=== PATIENT | female | born 1960 | race Caucasian/White ===

== ENCOUNTER 2017-01-14 12:37 | Inpatient (IN) | payer OTHER ==
[2017-01-14 13:04] VITALS: BMI 33.0
--- NOTE | 2017-01-14 15:50 | HP ---
CIWA Score - CIWA Score Nausea/Vomitin Muscle Tremors: 4-Moderate,w/Arms Extend Anxiety: 4-Mod. Anxious/Guarded Agitation: 4-Moderately Restless Paroxysmal Sweats: 3 Orientation: 1-Uncertain about Date Tacttile Disturbances: 0-None Auditory Disturbances: 0-None Visual Disturbances: 0-None Headache: 0-None Present CIWA-Ar Total Score: 19 Admission ROS BHS - HPI Chief Complaint: withdrawal sx. Allergies/Adverse Reactions: Allergies Allergy/AdvReac Type Severity Reaction Status Date / Time No Known Allergies Allergy Verified 01/14/17 14:45 History of Present Illness: 57 y/o woman with a long hx. of alcoholism is admitted for detox.Pt. has been in previous detox,denies significant sobriety. Exam Limitations: No Limitations - Ebola screening Have you traveled outside of the country in the last 21 days: No Have you had contact with anyone from an Ebola affected area: No Have you been sick,other than usual withdrawal symptoms: No Do you have a fever: No - Review of Systems Constitutional: Diaphoresis EENT: reports: No Symptoms Reported Respiratory: reports: No Symptoms reported Cardiac: reports: No Symptoms Reported GI: reports: Diarrhea, Nausea, Abdominal cramping : reports: No Symptoms Reported Musculoskeletal: reports: Back Pain Integumentary: reports: Sweating Neuro: reports: Tremors Endocrine: reports: No Symptoms Reported Hematology: reports: No Symptoms Reported Psychiatric: reports: No Sypmtoms Reported Other Systems: Reviewed and Negative Patient History - Patient Medical History Hx Anemia: No Hx Asthma: No Hx Chronic Obstructive Pulmonary Disease (COPD): No Hx Cancer: No Hx Cardiac Disorders: No Hx Congestive Heart Failure: No Hx Hypertension: No Hx Hypercholesterolemia: Yes (lipitor ) Hx Pacemaker: No HX Cerebrovascular Accident: No Hx Seizures: No Hx Dementia: No Hx Diabetes: No Hx Gastrointestinal Disorders: Yes (dyspepsia) Hx Liver Disease: No Hx Genitourinary Disorders: No Hx Sexually Transmitted Disorders: No Hx Renal Disease (ESRD): No Hx Thyroid Disease: No Hx Human Immunodeficiency Virus (HIV): No Hx Hepatitis C: Yes (treatment not needed at this time) Hx Depression: Yes Hx Suicide Attempt: Yes Hx Bipolar Disorder: Yes Hx Schizophrenia: No - Patient Surgical History Past Surgical History: No - PPD History Previous Implant?: Yes Documented Results: Positive w/o proof Implanted On Prior [facility] Admission?: No PPD to be Administered?: No - Reproductive History Patient is a Female of Child Bearing Age (11 -55 yrs old): No Patient : No - Smoking Cessation Smoking history: Current every day smoker Have you smoked in the past 12 months: Yes Aproximately how many cigarettes per day: 5 Hx Chewing Tobacco Use: No Initiated information on smoking cessation: Yes 'Breaking Loose' booklet given: 01/14/17 - Substance & Tx. History Hx Alcohol Use: Yes Hx Substance Use: Yes Substance Use Type: Alcohol, Cocaine, Marijuana Hx Substance Use Treatment: Yes (Detox) - Substances Abused Alcohol Route: Oral Frequency: Daily Amount used: vodka(1pint) Beer(2 cans of 16 oz cans) Age of first use: 15 Date of Last Use: 01/13/17 Cocaine Frequency: Daily Amount used: $120 Age of first use: 41 Date of Last Use: 01/14/17 Marijuana/Hashish Route: Smoking Frequency: Daily Amount used: $30 Age of first use: 23 Date of Last Use: 01/12/17 Family Disease History - Family Disease History Family History: Denies Admission Physical Exam [facility] - Vital Signs Vital Signs: Vital Signs - 24 hr 01/14/17 13:01 Temperature 99.1 F Pulse Rate 97 H Respiratory 20 Rate Blood Pressure 164/89 - Physical General Appearance: Yes: Tremorous, Irritable, Sweating, Anxious HEENTM: Yes: Within Normal Limits Respiratory: Yes: Chest Non-Tender, Lungs Clear, Normal Breath Sounds Breast: Yes: Breast Exam Deferred Cardiology: Yes: Regular Rhythm, Regular Rate, S1, S2 Abdominal: Yes: Normal Bowel Sounds, Non Tender, Soft Genitourinary: Yes: Within Normal Limits Back: Yes: Within Normal Limits Musculoskeletal: Yes: Within Normal Limits Extremities: Yes: Tremors Neurological: Yes: Fully Oriented, Alert Integumentary: Yes: Diaphoresis Lymphatic: Yes: Within Normal Limits - Diagnostic (1) Alcohol dependence with uncomplicated withdrawal Current Visit: Yes Status: Acute (2) Cannabis dependence, uncomplicated Current Visit: Yes Status: Acute (3) Cocaine dependence, uncomplicated Current Visit: Yes Status: Acute Cleared for Admission [facility] - Detox or Rehab [facility] Level of Care: Medically Managed Detox Regimen/Protocol: Librium [facility] Breath Alcohol Content Breath Alcohol Content: 0 Urine Pregancy Test - Result Urine Test Results: Negative- NO Line Present Urine Drug Screen - Results Drug Screen Negative: No Urine Drug Screen Results: THC-Marijuana, SHIRAZ-Cocaine
[2017-01-14] MEDS ORDERED: MENTHOL/PHENOL 1 EACH UD MM PRN (15:56)
[2017-01-14] MEDS ORDERED: LOPERAMIDE HCL 2 MG CAPSULE PO PRN (15:56)
[2017-01-14] MEDS ORDERED: P-EPHED 60MG/TRIPROLIDI 2.5MG TABLET PO PRN (15:56)
[2017-01-14] MEDS ORDERED: MAGNESIUM HYDROX 2400MG/30ML ORAL SUSPENSION 30 ML CUP PO PRN (15:56)
[2017-01-14] MEDS ORDERED: IBUPROFEN 400 MG TABLET (FP) PO PRN (15:56)
[2017-01-14] MEDS ORDERED: chlordiazePOXIDE HCL 25 MG CAPSULE PO PRN (15:56)
[2017-01-14] MEDS ORDERED: guaiFENesin/D-METHORPHAN HB 10 ML UNIT-DOSE CUPS PO PRN (15:56)
[2017-01-14] MEDS ORDERED: MAG HYDROX/AL HYDROX/SIMETH 30 ML UNIT-DOSE CUP PO PRN (15:56)
[2017-01-14] MEDS ORDERED: ACETAMINOPHEN 325 MG TABLET (FP) PO PRN (15:56)
[2017-01-14] MEDS ORDERED: chlordiazePOXIDE HCL 25 MG CAPSULE PO ONE (15:56)
[2017-01-14] MEDS ORDERED: MAGNESIUM CITRATE 300 ML BOTTLE PO PRN (15:56)
[2017-01-14] MEDS ORDERED: NICOTINE POLACRILEX 2 MG GUM BC PRN (15:56)
[2017-01-14] MEDS ORDERED: diphenhydrAMINE HCL 50 MG CAPSULE PO PRN (15:56)
[2017-01-14] MEDS ORDERED: hydrOXYzine PAMOATE 50 MG CAPSULE (FP) PO PRN (15:56)
[2017-01-14] MEDS: NICOTINE 14 MG/24 HOURS TOPICAL PATCH TD SCH (17:12)
[2017-01-14] MEDS: chlordiazePOXIDE HCL 25 MG CAPSULE PO SCH ×2 (17:12→22:29)
[2017-01-14] MEDS: PANTOPRAZOLE 40 MG TABLET (FP) PO SCH (17:13)
[2017-01-14] MEDS ORDERED: ATORVASTATIN CA 20 MG TABLET (FP) ONE (21:33)
[2017-01-14] MEDS: THIAMINE HCL 100 MG TABLET (FP) PO SCH (22:28)
[2017-01-14] MEDS: ATORVASTATIN CA 40 MG TABLET (FP) PO SCH (22:30)
[2017-01-15] MEDS: chlordiazePOXIDE HCL 25 MG CAPSULE PO SCH ×4 (06:00→22:36)
[2017-01-15] MEDS: NICOTINE 14 MG/24 HOURS TOPICAL PATCH TD SCH (10:30)
[2017-01-15] MEDS: PANTOPRAZOLE 40 MG TABLET (FP) PO SCH (10:30)
[2017-01-15] MEDS: PRENATAL VITAMINS W/ FOLIC ACID TABLET (FP) PO SCH (10:30)
--- NOTE | 2017-01-15 11:03 | EKG ---
Test Reason : Blood Pressure : / mmHG Vent. Rate : 084 BPM Atrial Rate : 084 BPM P-R Int : 142 ms QRS Dur : 082 ms QT Int : 386 ms P-R-T Axes : 067 064 061 degrees QTc Int : 456 ms NORMAL SINUS RHYTHM POSSIBLE LEFT ATRIAL ENLARGEMENT BORDERLINE ECG NO PREVIOUS ECGS AVAILABLE Confirmed by STANLEY PRAKASH, PRUDENCIO ([id number]) on 01/15/2017 11:02:29 AM Referred By: Confirmed By:PRUDENCIO ANGEL MD
--- NOTE | 2017-01-15 11:23 | CONSULT ---
[facility] Psychiatric Consult - Data Date of interview: 01/15/17 Admission source: [facility] Identifying data: This is 57 years old female with psychiatric hospitalization history intoxicated with: Cannabis, Alcohol andCocaine Substance Abuse History: - Smoking Cessation. Smoking history: Current every day smoker. Have you smoked in the past 12 months: Yes. Aproximately how many cigarettes per day: 5. Hx Chewing Tobacco Use: No. Initiated information on smoking cessation: Yes. 'Breaking Loose' booklet given: 01/14/17. - Substance & Tx. History. Hx Alcohol Use: Yes. Hx Substance Use: Yes. Substance Use Type : Alcohol, Cocaine, Marijuana. Hx Substance Use Treatment: Yes (Detox). - Substances Abused. Alcohol. Route: Oral. Frequency: Daily. Amount used: vodka(1pint) Beer(2 cans of 16 oz cans). Age of first use: 15. Date of Last Use: 01/13/17. Cocaine. Frequency: Daily. Amount used: $120. Age of first use: 41. Date of Last Use: 01/14/17. Marijuana/Hashish. Route: Smoking. Frequency: Daily. Amount used: $30. Age of first use: 23. Date of Last Use: 01/12/17 Medical History: Denies Psychiatric History: Aidan reports history of MDD, with n ost recent psychiatric admission on 2013 at [facility] prior to admission: Abilify 10mg poqd. Celexa 40mg poqd. Trazodone 100mg po qhs. Physical/Sexual Abuse/Trauma History: Denies Additional Comment: Abilify 10mg poqd. Celexa 40mg poqd. Trazodone 100mg po qhs Mental Status Exam - Mental Status Exam Alert and Oriented to: Person Cognitive Function: Fair Patient Appearance: Unkempt Mood: Euthymic Affect: Normal Range Patient Behavior: Cooperative Speech Pattern: Appropriate Voice Loudness: Severely Soft/Quiet Thought Process: Circumstantial Thought Disorder: Being Controlled Hallucinations: Denies Suicidal Ideation: Denies Homicidal Ideation: Denies Insight/Judgement: Fair Sleep: Difficulty falling asleep Appetite: Fair Muscle strength/Tone: Mild Hypotonicity Gait/Station: Shuffling Additional Comments: Abilify 10mg poqd. Celexa 40mg poqd Psychiatric Findings - Problem List ([place] 1, 2,3) (1) Alcohol dependence with uncomplicated withdrawal Current Visit: Yes Status: Acute (2) Cannabis dependence, uncomplicated Current Visit: Yes Status: Acute (3) Cocaine dependence, uncomplicated Current Visit: Yes Status: Acute (4) MDD (major depressive disorder) Current Visit: Yes Status: Acute (5) Drug-induced mood disorder Current Visit: Yes Status: Acute - Initial Treatment Plan Initial Treatment Plan: Abilify 10mg poqd. Celexa 40mg poqd. Trazodone 100mg po qhs
[2017-01-15] MEDS: CITALOPRAM HYDROBROMIDE 20 MG TABLET (FP) PO SCH (12:51)
[2017-01-15] MEDS: ARIPiprazole 10 MG TABLET PO SCH (12:52)
[2017-01-15] MEDS: CYCLOBENZAPRINE HCL 10 MG TABLET (FP) PO PRN ×2 (12:55→22:37)
[2017-01-15 14:12] LABS: MCH 30.3 pg (25.7-33.7); MCHC 33.3 g/dl (32.0-36.0); MEAN PLT VOLUME 9.8 fl (7.5-11.1); PLATELET COUNT 146 K/MM3 (134-434); RDW 13.9 % (11.6-15.6); WHITE BLOOD COUNT 3.8 K/mm3 (4.0-10.0)
[2017-01-15 14:17] LABS: URINE APPEARANCE SLCLOUDY; URINE BILIRUBIN NEGATIVE (NEGATIVE); URINE BLOOD NEGATIVE (NEGATIVE); URINE COLOR YELLOW; URINE GLUCOSE (UA) NEGATIVE (NEGATIVE); URINE KETONE NEGATIVE (NEGATIVE); URINE NITRITE NEGATIVE (NEGATIVE); URINE PROTEIN NEGATIVE (NEGATIVE); URINE UROBILINOGEN NEGATIVE E.U./dl (0.2-1.0)
[2017-01-15 14:21] LABS: URINE LEUK ESTERASE TRACE (NEGATIVE)
[2017-01-15 14:28] LABS: ALBUMIN 3.2 g/dl (3.4-5.0); CALCIUM 8.5 mg/dL (8.5-10.1)
[2017-01-15 14:33] LABS: BILIRUBIN,TOTAL 0.5 mg/dL (0.2-1.0); COCKROFT - GAULT 55.25; CREATININE 1.4 mg/dL (0.55-1.02); TOT PROT 5.9 g/dl (6.4-8.2)
[2017-01-15 14:35] LABS: CALCIUM OXALATE CRYSTALS RARE /hpf (NONE SEEN); URINE HYALINE CAST 9 /lpf; URINE MUCUS MANY; URINE RBC 5 /hpf (0-3); URINE WBC 9 /hpf (3-5)
[2017-01-15 14:40] LABS: HIV 1 & 2 AB NEGATIVE; HIV 1 AGp24 NEGATIVE
--- NOTE | 2017-01-15 17:06 | PN ---
S CIWA - CIWA Score Nausea/Vomitin Muscle Tremors: 4-Moderate,w/Arms Extend Anxiety: 4-Mod. Anxious/Guarded Agitation: 2 Paroxysmal Sweats: 2 Orientation: 0-Oriented Tacttile Disturbances: 0-None Auditory Disturbances: 2-Mild Harshness/Frighten Visual Disturbances: 3-Moderate Sensitivity Headache: 0-None Present CIWA-Ar Total Score: 19 S Progress Note (SOAP) Subjective: Body Aches, Tremors, Diarrhea. Objective: PT. A & O X 3, OBSERVED AMBULATING ON UNIT. NO ACUTE DISTRESS. 01/15/17 17:03 Vital Signs Temperature 97.9 F 01/15/17 15:49 Pulse Rate 88 01/15/17 15:49 Respiratory Rate 20 01/15/17 15:49 Blood Pressure 144/74 01/15/17 15:49 O2 Sat by Pulse Oximetry (%) Laboratory Tests 01/15/17 01/15/17 01/15/17 07:12 07:12 07:12 WBC 3.8 L RBC 4.47 Hgb 13.5 Hct 40.7 MCV 91.0 MCHC 33.3 RDW 13.9 Plt Count 146 MPV 9.8 Sodium 142 Potassium 3.5 Chloride 107 Carbon Dioxide 21 Anion Gap 14 BUN 15 Creatinine 1.4 H Creat Clearance w eGFR 38.49 Random Glucose 169 H Calcium 8.5 Total Bilirubin 0.5 AST 24 ALT 22 Alkaline Phosphatase 48 Total Protein 5.9 L Albumin 3.2 L Urine Color Urine Appearance Urine pH Urine Protein Urine Glucose (UA) Urine Ketones Urine Blood Urine Nitrite Urine Bilirubin Urine Urobilinogen Ur Leukocyte Esterase Urine RBC Urine WBC Ur Epithelial Cells Calcium Oxalate Crystal Hyaline Casts Urine Mucus RPR Titer HIV 1&2 Antibody Screen Negative HIV P24 Antigen Negative 01/15/17 01/15/17 07:12 08:00 WBC RBC Hgb Hct MCV MCHC RDW Plt Count MPV Sodium Potassium Chloride Carbon Dioxide Anion Gap BUN Creatinine Creat Clearance w eGFR Random Glucose Calcium Total Bilirubin AST ALT Alkaline Phosphatase Total Protein Albumin Urine Color Yellow Urine Appearance Slcloudy Urine pH 5.0 Urine Protein Negative Urine Glucose (UA) Negative Urine Ketones Negative Urine Blood Negative Urine Nitrite Negative Urine Bilirubin Negative Urine Urobilinogen Negative Ur Leukocyte Esterase Trace H Urine RBC 5 Urine WBC 9 Ur Epithelial Cells Few Calcium Oxalate Crystal Rare Hyaline Casts 9 Urine Mucus Many RPR Titer Nonreactive HIV 1&2 Antibody Screen HIV P24 Antigen LABS NOTED. Assessment: 01/15/17 17:04 WITHDRAWAL SYMPTOMS. Plan: CONTINUE DETOX. D/C MAGNESIUM-CONTAINING MEDS. BGM ACBK TOMORROW FOR ELEVATED ADMISSION RANDOM GLUCOSE LEVEL. ADVISED PATIENT TO FOLLOW-UP WITH HOUSEKEEPING MANAGER AFTER DISCHARGE FROM DETOX FOR GENERAL MEDICAL ASSESSMENT AND FOR ABNORMAL ADMISSION RENAL LAB VALUES.
[2017-01-15] MEDS ORDERED: traZODone HCL 50 MG TABLET (FP) PO SCH (22:00)
[2017-01-15] MEDS: THIAMINE HCL 100 MG TABLET (FP) PO SCH (22:36)
[2017-01-15] MEDS: traZODone HCL 100 MG TABLET (FP) PO SCH (22:36)
[2017-01-15] MEDS: ATORVASTATIN CA 40 MG TABLET (FP) PO SCH (22:36)
[2017-01-16] MEDS: chlordiazePOXIDE HCL 25 MG CAPSULE PO SCH ×2 (06:01→10:21)
[2017-01-16] MEDS: CYCLOBENZAPRINE HCL 10 MG TABLET (FP) PO PRN ×3 (06:03→22:43)
[2017-01-16] MEDS: PRENATAL VITAMINS W/ FOLIC ACID TABLET (FP) PO SCH (10:20)
[2017-01-16] MEDS: CITALOPRAM HYDROBROMIDE 20 MG TABLET (FP) PO SCH (10:20)
[2017-01-16] MEDS: PANTOPRAZOLE 40 MG TABLET (FP) PO SCH (10:21)
[2017-01-16] MEDS: ARIPiprazole 10 MG TABLET PO SCH (10:21)
[2017-01-16] MEDS: NICOTINE 14 MG/24 HOURS TOPICAL PATCH TD SCH (10:21)
[2017-01-16] MEDS ORDERED: ONDANSETRON *ODT* 4 MG TABLET SL PRN (10:58)
--- NOTE | 2017-01-16 11:00 | PN ---
[facility] CIWA - CIWA Score Nausea/Vomitin Muscle Tremors: 4-Moderate,w/Arms Extend Anxiety: 3 Agitation: 4-Moderately Restless Paroxysmal Sweats: 3 Orientation: 0-Oriented Tacttile Disturbances: 0-None Auditory Disturbances: 0-None Visual Disturbances: 0-None Headache: 0-None Present CIWA-Ar Total Score: 16 S Progress Note (SOAP) Subjective: body aches nausea vomiting interrupted sleep sweats Objective: 01/16/17 10:59 Vital Signs Temperature 97.5 F L 01/16/17 09:54 Pulse Rate 94 H 01/16/17 09:54 Respiratory Rate 16 01/16/17 09:54 Blood Pressure 147/78 01/16/17 09:54 O2 Sat by Pulse Oximetry (%) Laboratory Tests 01/15/17 01/15/17 01/15/17 07:12 07:12 07:12 WBC 3.8 L RBC 4.47 Hgb 13.5 Hct 40.7 MCV 91.0 MCHC 33.3 RDW 13.9 Plt Count 146 MPV 9.8 Sodium 142 Potassium 3.5 Chloride 107 Carbon Dioxide 21 Anion Gap 14 BUN 15 Creatinine 1.4 H Creat Clearance w eGFR 38.49 POC Glucometer Random Glucose 169 H Calcium 8.5 Total Bilirubin 0.5 AST 24 ALT 22 Alkaline Phosphatase 48 Total Protein 5.9 L Albumin 3.2 L Urine Color Urine Appearance Urine pH Ur Specific [place] Urine Protein Urine Glucose (UA) Urine Ketones Urine Blood Urine Nitrite Urine Bilirubin Urine Urobilinogen Ur Leukocyte Esterase Urine RBC Urine WBC Ur Epithelial Cells Calcium Oxalate Crystal Hyaline Casts Urine Mucus RPR Titer HIV 1&2 Antibody Screen Negative HIV P24 Antigen Negative 01/15/17 01/15/17 01/16/17 07:12 08:00 06:18 WBC RBC Hgb Hct MCV MCHC RDW Plt Count MPV Sodium Potassium Chloride Carbon Dioxide Anion Gap BUN Creatinine Creat Clearance w eGFR POC Glucometer 123 Random Glucose Calcium Total Bilirubin AST ALT Alkaline Phosphatase Total Protein Albumin Urine Color Yellow Urine Appearance Slcloudy Urine pH 5.0 Ur Specific [place] 1.025 Urine Protein Negative Urine Glucose (UA) Negative Urine Ketones Negative Urine Blood Negative Urine Nitrite Negative Urine Bilirubin Negative Urine Urobilinogen Negative Ur Leukocyte Esterase Trace H Urine RBC 5 Urine WBC 9 Ur Epithelial Cells Few Calcium Oxalate Crystal Rare Hyaline Casts 9 Urine Mucus Many RPR Titer Nonreactive HIV 1&2 Antibody Screen HIV P24 Antigen awake/alert ambulating no acute distress Assessment: 01/16/17 11:00 withdrawal sx Plan: continue detox increase fluids magan PRANEETH prn
[2017-01-16] MEDS: LIDOCAINE 5% TOPICAL PATCH TP SCH (11:43)
[2017-01-16] MEDS: chlordiazePOXIDE 5 MG CAPSULE PO SCH ×2 (17:24→22:44)
[2017-01-16] MEDS: THIAMINE HCL 100 MG TABLET (FP) PO SCH (22:43)
[2017-01-16] MEDS: traZODone HCL 100 MG TABLET (FP) PO SCH (22:43)
[2017-01-16] MEDS: ATORVASTATIN CA 40 MG TABLET (FP) PO SCH (22:43)
[2017-01-16] MEDS: LIDOCAINE PATCH REMOVAL MC SCH (22:44)
[2017-01-17] MEDS: chlordiazePOXIDE 5 MG CAPSULE PO SCH ×2 (06:02→10:44)
--- NOTE | 2017-01-17 09:25 | PN ---
[facility] Progress Note (SOAP) Subjective: interrupted sleep, diarrhea , lbp , sciatica Objective: 01/17/17 09:22 Vital Signs Temperature 96.3 F L 01/17/17 06:00 Pulse Rate 80 01/17/17 06:00 Respiratory Rate 18 01/17/17 06:00 Blood Pressure 124/64 01/17/17 06:00 O2 Sat by Pulse Oximetry (%) Laboratory Tests 01/15/17 01/15/17 01/15/17 07:12 07:12 07:12 WBC 3.8 L RBC 4.47 Hgb 13.5 Hct 40.7 MCV 91.0 MCHC 33.3 RDW 13.9 Plt Count 146 MPV 9.8 Sodium 142 Potassium 3.5 Chloride 107 Carbon Dioxide 21 Anion Gap 14 BUN 15 Creatinine 1.4 H Creat Clearance w eGFR 38.49 POC Glucometer Random Glucose 169 H Calcium 8.5 Total Bilirubin 0.5 AST 24 ALT 22 Alkaline Phosphatase 48 Total Protein 5.9 L Albumin 3.2 L Urine Color Urine Appearance Urine pH Ur Specific [place] Urine Protein Urine Glucose (UA) Urine Ketones Urine Blood Urine Nitrite Urine Bilirubin Urine Urobilinogen Ur Leukocyte Esterase Urine RBC Urine WBC Ur Epithelial Cells Calcium Oxalate Crystal Hyaline Casts Urine Mucus RPR Titer HIV 1&2 Antibody Screen Negative HIV P24 Antigen Negative 01/15/17 01/15/17 01/16/17 07:12 08:00 06:18 WBC RBC Hgb Hct MCV MCHC RDW Plt Count MPV Sodium Potassium Chloride Carbon Dioxide Anion Gap BUN Creatinine Creat Clearance w eGFR POC Glucometer 123 Random Glucose Calcium Total Bilirubin AST ALT Alkaline Phosphatase Total Protein Albumin Urine Color Yellow Urine Appearance Slcloudy Urine pH 5.0 Ur Specific [place] 1.025 Urine Protein Negative Urine Glucose (UA) Negative Urine Ketones Negative Urine Blood Negative Urine Nitrite Negative Urine Bilirubin Negative Urine Urobilinogen Negative Ur Leukocyte Esterase Trace H Urine RBC 5 Urine WBC 9 Ur Epithelial Cells Few Calcium Oxalate Crystal Rare Hyaline Casts 9 Urine Mucus Many RPR Titer Nonreactive HIV 1&2 Antibody Screen HIV P24 Antigen 01/17/17 06:01 WBC RBC Hgb Hct MCV MCHC RDW Plt Count MPV Sodium Potassium Chloride Carbon Dioxide Anion Gap BUN Creatinine Creat Clearance w eGFR POC Glucometer 94 Random Glucose Calcium Total Bilirubin AST ALT Alkaline Phosphatase Total Protein Albumin Urine Color Urine Appearance Urine pH Ur Specific [place] Urine Protein Urine Glucose (UA) Urine Ketones Urine Blood Urine Nitrite Urine Bilirubin Urine Urobilinogen Ur Leukocyte Esterase Urine RBC Urine WBC Ur Epithelial Cells Calcium Oxalate Crystal Hyaline Casts Urine Mucus RPR Titer HIV 1&2 Antibody Screen HIV P24 Antigen 01/17/17 09:23 01/17/17 11:19 pt aox3 lying in bed with back and leg pain Assessment: 01/17/17 09:23 withdrawal sx's dm elevated creatinine 01/17/17 09:23 01/17/17 09:24 Plan: cont. detox increase fluids gabapentin 100mg tid motrin 800mg tid d/c in am
[2017-01-17] MEDS: PRENATAL VITAMINS W/ FOLIC ACID TABLET (FP) PO SCH (10:44)
[2017-01-17] MEDS: ARIPiprazole 10 MG TABLET PO SCH (10:44)
[2017-01-17] MEDS: PANTOPRAZOLE 40 MG TABLET (FP) PO SCH (10:44)
[2017-01-17] MEDS: CITALOPRAM HYDROBROMIDE 20 MG TABLET (FP) PO SCH (10:44)
[2017-01-17] MEDS: LIDOCAINE 5% TOPICAL PATCH TP SCH (10:47)
[2017-01-17] MEDS: NICOTINE 14 MG/24 HOURS TOPICAL PATCH TD SCH (10:47)
[2017-01-17] MEDS ORDERED: IBUPROFEN 400 MG TABLET (FP) PO PRN (11:21)
[2017-01-17] MEDS: CYCLOBENZAPRINE HCL 10 MG TABLET (FP) PO PRN ×2 (14:10→22:24)
[2017-01-17] MEDS: chlordiazePOXIDE HCL 10 MG CAPSULE PO SCH ×2 (17:18→22:24)
[2017-01-17] MEDS: THIAMINE HCL 100 MG TABLET (FP) PO SCH (22:24)
[2017-01-17] MEDS: traZODone HCL 100 MG TABLET (FP) PO SCH (22:25)
[2017-01-17] MEDS: ATORVASTATIN CA 40 MG TABLET (FP) PO SCH (22:25)
[2017-01-18] MEDS: chlordiazePOXIDE HCL 10 MG CAPSULE PO SCH (05:39)
[2017-01-18] MEDS: LIDOCAINE PATCH REMOVAL MC SCH (08:23)
--- NOTE | 2017-01-18 08:54 | DS ---
[facility] Detox Discharge Summary Admission Date: 01/14/17 Discharge Date: 01/18/17 - History Present History: Alcohol Dependence, Cannabis Dependence, Cocaine Dependence - Physical Exam Results Vital Signs: Vital Signs Temperature 97.2 F L 01/18/17 06:31 Pulse Rate 77 01/18/17 06:31 Respiratory Rate 18 01/18/17 06:31 Blood Pressure 140/77 01/18/17 06:31 O2 Sat by Pulse Oximetry (%) - Treatment Hospital Course: Detox Protocol Followed, Detoxed Safely, Responded well, Discharged Condition Good, Rehab Referral Accepted - Medication Discharge Medications: Ambulatory Orders Aripiprazole [Abilify -] 10 mg PO DAILY 01/14/17 Atorvastatin Ca [Lipitor] 40 mg PO DAILY 01/14/17 Citalopram Hydrobromide [Celexa -] 40 mg PO DAILY 01/14/17 Famotidine [Pepcid -] 20 mg PO BID 01/14/17 Trazodone HCl 100 mg PO HS 01/14/17 Aripiprazole [Abilify -] 10 mg PO DAILY #30 tablet 01/15/17 Citalopram Hydrobromide [Celexa -] 40 mg PO DAILY #30 tablet 01/15/17 Trazodone HCl 100 mg PO HS #30 tablet 01/15/17 Trazodone HCl [Desyrel -] 100 mg PO HS #30 tablet 01/15/17 Trazodone HCl [Desyrel -] 100 mg PO HS #30 tablet 01/15/17 - Diagnosis (1) Alcohol dependence with uncomplicated withdrawal Current Visit: Yes Status: Chronic (2) Cannabis dependence, uncomplicated Current Visit: Yes Status: Chronic (3) Cocaine dependence, uncomplicated Current Visit: Yes Status: Chronic (4) Drug-induced mood disorder Current Visit: Yes Status: Acute (5) MDD (major depressive disorder) Current Visit: Yes Status: Acute - AMA Did Patient Leave Against Medical Advice: No
[2017-01-18 09:59] VITALS: BP 137/76; PULSE 95; TEMP 97.7
== END 2017-01-18 08:42 | disposition home or self-care (01) | DRG 774 ==
LOC: YASAS 12:37 → Y6N 15:09
PROVIDERS: ADMIT Internal Medicine Addiction Medicine; ATTEND Internal Medicine Addiction Medicine
PROC: HZ2ZZZZ Detoxification Services for Substance Abuse Treatment (ICD-10-PCS; principal; 2017-01-18)
DX: F10.230 Alcohol dependence with withdrawal, uncomplicated (principal); F14.20 Cocaine dependence, uncomplicated; F12.20 Cannabis dependence, uncomplicated; F19.24 Other psychoactive substance dependence with psychoactive substance-induced mood disorder; F32.9 Major depressive disorder, single episode, unspecified
CPT/HCPCS: 36415; 71020-TC; 80053; 81003; 81015; 85027; 86593; 87389; 93005; 93010

== ENCOUNTER 2018-09-24 10:21 | Inpatient (IN) | payer OTHER ==
[2018-09-24 11:48] VITALS: BMI 35.1
--- NOTE | 2018-09-24 14:08 | HP ---
CIWA Score Nausea/Vomitin Muscle Tremors: 3 Anxiety: 2 Agitation: 3 Paroxysmal Sweats: 1-Minimal Palms Moist Orientation: 0-Oriented Tacttile Disturbances: 1-Very Mild Itch/Numbness Auditory Disturbances: 1-Very Mild Visual Disturbances: 0-None Headache: 2-Mild CIWA-Ar Total Score: 15 - Admission Criteria [facility] Guidelines: Admission for Medically Managed Detox: Requires at least one of the followin. CIWA greater than 12 2. Seizures within the past 24 hours 3. Delirium tremens within the past 24 hours 4. Hallucinations within the past 24 hours 5. Acute intervention needed for co occurring medical disorder 6. Acute intervention needed for co occurring psychiatric disorder 7. Severe withdrawal that cannot be handled at a lower level of care (continued vomiting, continued diarrhea, abnormal vital signs) requiring intravenous medication and/or fluids 8. Admission ROS BHS - HPI Chief Complaint: i need help to stop drinking alcohol,cacaine and marijuana Allergies/Adverse Reactions: Allergies Allergy/AdvReac Type Severity Reaction Status Date / Time No Known Allergies Allergy Verified 09/24/18 12:30 History of Present Illness: this 58 years old female with alcohol,cocaine and marijuana dependence seeking detox,withdrawal symptom,last treatment 06/06 [facility] nicotine dependence hypertension and hypercholesterolemia s/p angioplasty with 2 stents on 09/15/18 at [facility] hepatitis c no treatment longest sobriety 3 years plan for for rehab also has copd,hypothyroidism Exam Limitations: No Limitations - Ebola screening Have you traveled outside of the country in the last 21 days: No Have you had contact with anyone from an Ebola affected area: No Have you been sick,other than usual withdrawal symptoms: No Do you have a fever: No - Review of Systems Constitutional: Night Sweats, Changes in sleep, Weakness EENT: reports: Nose Congestion Respiratory: reports: No Symptoms reported Cardiac: reports: Other (s/p angioplasty with 2 stents) GI: reports: Nausea, Abdominal cramping : reports: No Symptoms Reported Musculoskeletal: reports: Back Pain, Muscle Pain Integumentary: reports: Dryness Neuro: reports: Headache, Tremors Endocrine: reports: No Symptoms Reported Hematology: reports: No Symptoms Reported Psychiatric: reports: No Sypmtoms Reported, Judgement Intact, Mood/Affect Appropiate, Orientated x3 Patient History - Patient Medical History Hx Asthma: No Hx Chronic Obstructive Pulmonary Disease (COPD): Yes Hx Cancer: No Hx Cardiac Disorders: Yes (s/p angioplasty with 2 stents 0n at [facility]) Hx Hypertension: Yes Hx Hypercholesterolemia: Yes Hx Pacemaker: No HX Cerebrovascular Accident: No Hx Seizures: No Hx Diabetes: No Hx Gastrointestinal Disorders: Yes (On Prilosec) Hx Liver Disease: No Hx Genitourinary Disorders: No Hx Sexually Transmitted Disorders: No Hx Renal Disease (ESRD): No Hx Thyroid Disease: No Hx Human Immunodeficiency Virus (HIV): No (last 2016 negative) Hx Hepatitis C: No Hx Depression: Yes Hx Suicide Attempt: No Hx Bipolar Disorder: Yes (on meds) Hx Schizophrenia: No Other Medical History: no suicidal,no homicidal - Patient Surgical History Past Surgical History: Yes Hx Neurologic Surgery: No Hx Cataract Extraction: No Hx Cardiac Surgery: Yes ( on 09/15/18 [facility]) Hx Lung Surgery: No Hx Breast Surgery: No Hx Breast Biopsy: No Hx Abdominal Surgery: No Hx Appendectomy: No Hx Cholecystectomy: No Hx Genitourinary Surgery: No Hx Section: No Hx Orthopedic Surgery: No Anesthesia Reaction: No - PPD History Previous Implant?: No Documented Results: Positive w/o proof Implanted On Prior [facility] Admission?: No PPD to be Administered?: No - Reproductive History Patient is a Female of Child Bearing Age (11 -55 yrs old): No Patient : No - Smoking Cessation Smoking history: Current every day smoker Have you smoked in the past 12 months: Yes Aproximately how many cigarettes per day: 3 Hx Chewing Tobacco Use: No Initiated information on smoking cessation: Yes 'Breaking Loose' booklet given: 09/24/18 - Substance & Tx. History Hx Alcohol Use: Yes Hx Substance Use: Yes Substance Use Type: Alcohol, Cocaine, Marijuana Hx Substance Use Treatment: Yes (eulalia hernandez in 06/06 completed) - Substances Abused Alcohol Route: Oral Frequency: Daily Amount used: 1 pint of vodka Age of first use: 23 Date of Last Use: 09/23/18 Cocaine Route: Smoking Frequency: Daily Amount used: 100 dollars daily Age of first use: 41 Date of Last Use: 09/22/18 Marijuana/Hashish Route: Smoking Frequency: 1-2 times per week Amount used: 20 bags each time Age of first use: 18 Date of Last Use: 09/24/18 Family Disease History - Family Disease History Family History: Denies Admission Physical Exam [facility] - Vital Signs Vital Signs: Vital Signs - 24 hr 09/24/18 11:46 Temperature 98.9 F Pulse Rate 99 H Respiratory 18 Rate Blood Pressure 117/69 - Physical General Appearance: Yes: Moderate Distress, Tremorous, Irritable, Sweating, Anxious HEENTM: Yes: Normal ENT Inspection, [place], Pharynx Normal Respiratory: Yes: Lungs Clear, Normal Breath Sounds, No Respiratory Distress Neck: Yes: Within Normal Limits, Supple, Trachea in good position Breast: Yes: Breast Exam Deferred Cardiology: Yes: Within Normal Limits, Regular Rhythm, Regular Rate, S1, S2 Abdominal: Yes: Within Normal Limits, Normal Bowel Sounds, Non Tender, Soft Genitourinary: Yes: Within Normal Limits Back: Yes: Muscle Spasm Musculoskeletal: Yes: Back pain, Muscle Pain Extremities: Yes: Tremors Neurological: Yes: Within Normal Limits, communication center coordinator II-XII NML intact, Fully Oriented, Alert, Motor Strength 5/5 Integumentary: Yes: Dry Lymphatic: Yes: Within Normal Limits - Diagnostic (1) Alcohol dependence with uncomplicated withdrawal Current Visit: Yes Status: Acute (2) Cocaine dependence Current Visit: Yes Status: Acute (3) Cannabis dependence Current Visit: Yes Status: Acute (4) Nicotine dependence Current Visit: Yes Status: Acute (5) CAD (coronary artery disease) Current Visit: Yes Status: Acute (6) S/P angioplasty with stent Current Visit: Yes Status: Acute (7) Bipolar disorder Current Visit: Yes Status: Acute (8) COPD (chronic obstructive pulmonary disease) Current Visit: Yes Status: Acute (9) Hypothyroidism Current Visit: Yes Status: Acute Cleared for Admission [facility] - Detox or Rehab [facility] Level of Care: Medically Managed Detox Regimen/Protocol: Librium [facility] Breath Alcohol Content Breath Alcohol Content: 0 Urine Pregancy Test - Result Urine Test Results: Negative- NO Line Present Urine Drug Screen - Results Drug Screen Negative: No Urine Drug Screen Results: THC-Marijuana, SHIRAZ-Cocaine
[2018-09-24] MEDS ORDERED: guaiFENesin/D-METHORPHAN HB 10 ML UNIT-DOSE CUPS PO PRN (14:27)
[2018-09-24] MEDS ORDERED: LOPERAMIDE HCL 2 MG CAPSULE PO PRN (14:27)
[2018-09-24] MEDS ORDERED: MAGNESIUM CITRATE 300 ML BOTTLE PO PRN (14:27)
[2018-09-24] MEDS ORDERED: IBUPROFEN 400 MG TABLET (FP) PO PRN (14:27)
[2018-09-24] MEDS ORDERED: MAG HYDROX/AL HYDROX/SIMETH 30 ML UNIT-DOSE CUP PO PRN (14:27)
[2018-09-24] MEDS ORDERED: ACETAMINOPHEN 325 MG TABLET (FP) PO PRN (14:27)
[2018-09-24] MEDS ORDERED: NICOTINE POLACRILEX 2 MG GUM BUC PRN (14:27)
[2018-09-24] MEDS ORDERED: MENTHOL/PHENOL 1 EACH UD MM PRN (14:27)
[2018-09-24] MEDS ORDERED: MAGNESIUM HYDROX 2400MG/30ML ORAL SUSPENSION 30 ML CUP PO PRN (14:27)
[2018-09-24] MEDS ORDERED: P-EPHED 60MG/TRIPROLIDI 2.5MG TABLET PO PRN (14:27)
[2018-09-24] MEDS: chlordiazePOXIDE HCL 25 MG CAPSULE PO PRN ×2 (15:37→19:41)
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
--- NOTE | 2018-09-24 16:01 | EKG ---
Test Reason : Blood Pressure : / mmHG Vent. Rate : 098 BPM Atrial Rate : 098 BPM P-R Int : 142 ms QRS Dur : 078 ms QT Int : 334 ms P-R-T Axes : 061 007 055 degrees QTc Int : 426 ms NORMAL SINUS RHYTHM POSSIBLE LEFT ATRIAL ENLARGEMENT INFERIOR INFARCT , AGE UNDETERMINED ABNORMAL ECG NO PREVIOUS ECGS AVAILABLE Confirmed by Mihai Roque MD ([id number]) on 09/24/2018 4:00:43 PM Referred By: Confirmed By:Mihai Roque MD
[2018-09-24] MEDS: chlordiazePOXIDE HCL 25 MG CAPSULE PO SCH ×2 (17:05→22:02)
[2018-09-24 17:16] LABS: URINE APPEARANCE CLOUDY; URINE BILIRUBIN NEGATIVE (<2.0 mg/dL); URINE COLOR YELLOW; URINE GLUCOSE (UA) NEGATIVE (NEGATIVE); URINE KETONE NEGATIVE (NEGATIVE); URINE LEUK ESTERASE 2+ (NEGATIVE); URINE NITRITE NEGATIVE (NEGATIVE); URINE PROTEIN NEGATIVE (NEGATIVE); URINE UROBILINOGEN NEGATIVE mg/dL (0.2-1.0)
[2018-09-24 17:25] LABS: CALCIUM OXALATE CRYSTALS RARE /hpf (NONE SEEN); EPI CELLS MANY /HPF (FEW); URINE MUCUS FEW
[2018-09-24] MEDS ORDERED: SYMBICORT PO SCH (22:00)
[2018-09-24] MEDS: BUDESONIDE/FORMETEROL FUMARATE 80/4.5 mcg INHALER IH SCH (22:02)
[2018-09-24] MEDS: TOPIRAMATE 25 MG TABLET (FP) PO SCH (22:02)
[2018-09-24] MEDS: ATORVASTATIN CA 80 MG TABLET (FP) PO SCH (22:02)
[2018-09-24] MEDS: traZODone HCL 50 MG TABLET (FP) PO SCH (22:02)
[2018-09-24] MEDS: THIAMINE HCL 100 MG TABLET (FP) PO SCH (22:02)
[2018-09-25] MEDS: chlordiazePOXIDE HCL 25 MG CAPSULE PO SCH ×4 (05:52→22:16)
[2018-09-25] MEDS: CLOPIDOGREL BISULFATE 75 MG TABLET (FP) PO SCH (07:07)
[2018-09-25] MEDS: LEVOTHYROXINE NA 25 MCG TABLET (FP) PO SCH (07:07)
[2018-09-25] MEDS: ASPIRIN COATED 81 MG TABLET.EC PO SCH (09:57)
[2018-09-25] MEDS: PRENATAL VITAMINS W/ FOLIC ACID TABLET (FP) PO SCH (09:57)
[2018-09-25] MEDS: BUDESONIDE/FORMETEROL FUMARATE 80/4.5 mcg INHALER IH SCH ×2 (09:57→22:15)
[2018-09-25] MEDS: LISINOPRIL 10 MG TABLET (FP) PO SCH (09:58)
[2018-09-25 10:11] LABS: HEMATOCRIT 34.3 % (32.4-45.2); HEMOGLOBIN 11.7 GM/dL (10.7-15.3); MCH 28.8 pg (25.7-33.7); MCHC 34.1 g/dl (32.0-36.0); MEAN CELL VOLUME 84.5 fl (80-96); MEAN PLT VOLUME 9.7 fl (7.5-11.1); PLATELET COUNT 199 K/MM3 (134-434); RBC 4.06 M/mm3 (3.60-5.2); RDW 14.8 % (11.6-15.6); WHITE BLOOD COUNT 5.5 K/mm3 (4.0-10.0)
[2018-09-25] MEDS: RANITIDINE HCL 150 MG TABLET (FP) PO SCH ×2 (10:37→22:16)
[2018-09-25] MEDS: TOPIRAMATE 25 MG TABLET (FP) PO SCH ×2 (10:37→22:16)
[2018-09-25] MEDS: ARIPiprazole 10 MG TABLET PO SCH (10:37)
[2018-09-25 10:56] LABS: ALBUMIN 3.1 g/dl (3.4-5.0); ALK PHOS 57 U/L (45-117); ANION GAP 9 MMOL/L (8-16); BILIRUBIN,TOTAL 0.3 mg/dL (0.2-1); BLOOD UREA NITROGEN 20 mg/dL (7-18); CALCIUM 8.6 mg/dL (8.5-10.1); CHLORIDE 105 mmol/L (98-107); CO2 25 mmol/L (21-32); CREATININE 1.3 mg/dL (0.55-1.3); GLUCOSE,RANDOM 171 mg/dL (74-106); POTASSIUM 3.8 mmol/L (3.5-5.1); SGOT/AST 15 U/L (15-37); SGPT/ALT 16 U/L (13-61); SODIUM 138 mmol/L (136-145)
--- NOTE | 2018-09-25 15:25 | PN ---
[facility] CIWA - CIWA Score Nausea/Vomitin-No Nausea/No Vomiting Muscle Tremors: 4-Moderate,w/Arms Extend Anxiety: 2 Agitation: 0-Normal Activity Paroxysmal Sweats: 3 Orientation: 0-Oriented Tacttile Disturbances: 2-Mild Itch/Numbness/Burn Auditory Disturbances: 0-None Visual Disturbances: 2-Mild Sensitivity Headache: 0-None Present CIWA-Ar Total Score: 13 S Progress Note (SOAP) Subjective: Diarrhea, Stomach Cramping, Tremors, Body Aches, Anxious, Sweating. Objective: PATIENT A & O X 3, OBSERVED AMBULATING ON UNIT. IN NO ACUTE DISTRESS. NO URINARY COMPLAINTS (BURNING, PAIN, FREQUENCY, URGENCY, HESITANCY) OFFERED BY PATIENT DURING TODAY'S ROUNDS ASSESSMENT. 09/25/18 15:27 Vital Signs Temperature 97.4 F L 09/25/18 13:35 Pulse Rate 107 H 09/25/18 13:35 Respiratory Rate 18 09/25/18 13:35 Blood Pressure 130/79 09/25/18 13:35 O2 Sat by Pulse Oximetry (%) Laboratory Tests 09/24/18 09/25/18 09/25/18 15:40 07:00 07:00 WBC 5.5 RBC 4.06 Hgb 11.7 Hct 34.3 D MCV 84.5 MCH 28.8 MCHC 34.1 RDW 14.8 Plt Count 199 D MPV 9.7 Sodium 138 Potassium 3.8 Chloride 105 Carbon Dioxide 25 Anion Gap 9 BUN 20 H Creatinine 1.3 Creat Clearance w eGFR 41.78 Random Glucose 171 H Calcium 8.6 Total Bilirubin 0.3 AST 15 ALT 16 Alkaline Phosphatase 57 Total Protein 6.0 L Albumin 3.1 L Urine Color Yellow Urine Appearance Cloudy Urine pH 5.0 Ur Specific [place] 1.027 Urine Protein Negative Urine Glucose (UA) Negative Urine Ketones Negative Urine Blood Negative Urine Nitrite Negative Urine Bilirubin Negative Urine Urobilinogen Negative Ur Leukocyte Esterase 2+ H Urine WBC (Auto) 17 Urine RBC (Auto) 8 Ur Epithelial Cells Many Calcium Oxalate Crystal Rare Urine Mucus Few RPR Titer 09/25/18 07:00 WBC RBC Hgb Hct MCV MCH MCHC RDW Plt Count MPV Sodium Potassium Chloride Carbon Dioxide Anion Gap BUN Creatinine Creat Clearance w eGFR Random Glucose Calcium Total Bilirubin AST ALT Alkaline Phosphatase Total Protein Albumin Urine Color Urine Appearance Urine pH Ur Specific [place] Urine Protein Urine Glucose (UA) Urine Ketones Urine Blood Urine Nitrite Urine Bilirubin Urine Urobilinogen Ur Leukocyte Esterase Urine WBC (Auto) Urine RBC (Auto) Ur Epithelial Cells Calcium Oxalate Crystal Urine Mucus RPR Titer Nonreactive LABS NOTED. 09/25/18 15:33 Assessment: 09/25/18 15:27 WITHDRAWAL SYMPTOMS. Plan: CONTINUE DETOX. D/C IBUPROFEN AND MAGNESIUM-CONTAINING MEDS. FOR ABNORMAL ADMISSION RENAL LAB VALUES. BMP ON 09/27/2018 FOR ABNORMAL ADMISSION RENAL LAB VALUES. BGM ACBK FOR ELEVATED ADMISSION GLUCOSE LEVEL. REPEAT UA FOR ADMISSION UA ABNORMALITIES.
[2018-09-25] MEDS ORDERED: ACETAMINOPHEN 325 MG TABLET (FP) PO PRN (18:11)
[2018-09-25] MEDS: CYCLOBENZAPRINE HCL 5 MG TABLET PO PRN (19:07)
[2018-09-25 20:29] LABS: URINE APPEARANCE CLOUDY; URINE BILIRUBIN NEGATIVE (<2.0 mg/dL); URINE COLOR YELLOW; URINE GLUCOSE (UA) NEGATIVE (NEGATIVE); URINE KETONE NEGATIVE (NEGATIVE); URINE LEUK ESTERASE 1+ (NEGATIVE); URINE NITRITE NEGATIVE (NEGATIVE); URINE PROTEIN NEGATIVE (NEGATIVE); URINE UROBILINOGEN NEGATIVE mg/dL (0.2-1.0)
[2018-09-25 20:39] LABS: EPI CELLS FEW /HPF (FEW); URINE BACTERIA RARE /hpf (NONE SEEN)
[2018-09-25] MEDS: traZODone HCL 50 MG TABLET (FP) PO SCH (22:16)
[2018-09-25] MEDS: ATORVASTATIN CA 80 MG TABLET (FP) PO SCH (22:16)
[2018-09-25] MEDS: THIAMINE HCL 100 MG TABLET (FP) PO SCH (22:16)
[2018-09-25] MEDS: MELATONIN 5 MG TABLETS PO PRN (22:17)
[2018-09-26] MEDS: chlordiazePOXIDE HCL 25 MG CAPSULE PO SCH ×2 (05:57→10:19)
[2018-09-26] MEDS: LEVOTHYROXINE NA 25 MCG TABLET (FP) PO SCH (06:29)
[2018-09-26] MEDS: CLOPIDOGREL BISULFATE 75 MG TABLET (FP) PO SCH (06:29)
[2018-09-26] MEDS: CYCLOBENZAPRINE HCL 5 MG TABLET PO PRN (07:37)
[2018-09-26] MEDS: chlordiazePOXIDE HCL 25 MG CAPSULE PO PRN ×2 (07:38→14:29)
[2018-09-26] MEDS: BUDESONIDE/FORMETEROL FUMARATE 80/4.5 mcg INHALER IH SCH ×2 (10:18→23:07)
[2018-09-26] MEDS: RANITIDINE HCL 150 MG TABLET (FP) PO SCH ×2 (10:19→22:08)
[2018-09-26] MEDS: TOPIRAMATE 25 MG TABLET (FP) PO SCH ×2 (10:21→22:07)
[2018-09-26] MEDS: LISINOPRIL 10 MG TABLET (FP) PO SCH (10:21)
[2018-09-26] MEDS: PRENATAL VITAMINS W/ FOLIC ACID TABLET (FP) PO SCH (10:22)
[2018-09-26] MEDS: ASPIRIN COATED 81 MG TABLET.EC PO SCH (10:22)
[2018-09-26] MEDS: ARIPiprazole 10 MG TABLET PO SCH (10:22)
[2018-09-26] MEDS ORDERED: ONDANSETRON *ODT* 4 MG TABLET SL PRN (13:04)
--- NOTE | 2018-09-26 13:51 | PN ---
[facility] CIWA - CIWA Score Nausea/Vomitin Muscle Tremors: 3 Anxiety: 3 Agitation: 1-Slight > Activity Paroxysmal Sweats: 3 Orientation: 0-Oriented Tacttile Disturbances: 0-None Auditory Disturbances: 0-None Visual Disturbances: 1-Very Mild Sensitivity Headache: 0-None Present CIWA-Ar Total Score: 14 S Progress Note (SOAP) Subjective: Nausea, Tremors, Sweating. Objective: PATIENT A & O X 3, OBSERVED AMBULATING ON UNIT. IN NO ACUTE DISTRESS. 09/26/18 13:49 Vital Signs Temperature 96.6 F L 09/26/18 09:21 Pulse Rate 107 H 09/26/18 09:21 Respiratory Rate 18 09/26/18 09:21 Blood Pressure 113/71 09/26/18 09:21 O2 Sat by Pulse Oximetry (%) Laboratory Tests 09/24/18 09/25/18 09/25/18 15:40 07:00 07:00 WBC 5.5 RBC 4.06 Hgb 11.7 Hct 34.3 D MCV 84.5 MCH 28.8 MCHC 34.1 RDW 14.8 Plt Count 199 D MPV 9.7 Sodium 138 Potassium 3.8 Chloride 105 Carbon Dioxide 25 Anion Gap 9 BUN 20 H Creatinine 1.3 Creat Clearance w eGFR 41.78 POC Glucometer Random Glucose 171 H Calcium 8.6 Total Bilirubin 0.3 AST 15 ALT 16 Alkaline Phosphatase 57 Total Protein 6.0 L Albumin 3.1 L Urine Color Yellow Urine Appearance Cloudy Urine pH 5.0 Ur Specific [place] 1.027 Urine Protein Negative Urine Glucose (UA) Negative Urine Ketones Negative Urine Blood Negative Urine Nitrite Negative Urine Bilirubin Negative Urine Urobilinogen Negative Ur Leukocyte Esterase 2+ H Urine WBC (Auto) 17 Urine RBC (Auto) 8 Ur Epithelial Cells Many Calcium Oxalate Crystal Rare Urine Bacteria Urine Mucus Few RPR Titer 09/25/18 09/25/18 09/26/18 07:00 18:50 05:57 WBC RBC Hgb Hct MCV MCH MCHC RDW Plt Count MPV Sodium Potassium Chloride Carbon Dioxide Anion Gap BUN Creatinine Creat Clearance w eGFR POC Glucometer 166 Random Glucose Calcium Total Bilirubin AST ALT Alkaline Phosphatase Total Protein Albumin Urine Color Yellow Urine Appearance Cloudy Urine pH 7.0 D Ur Specific [place] 1.016 Urine Protein Negative Urine Glucose (UA) Negative Urine Ketones Negative Urine Blood Negative Urine Nitrite Negative Urine Bilirubin Negative Urine Urobilinogen Negative Ur Leukocyte Esterase 1+ H Urine WBC (Auto) 2 Urine RBC (Auto) 1 Ur Epithelial Cells Few Calcium Oxalate Crystal Urine Bacteria Rare Urine Mucus RPR Titer Nonreactive LABS NOTED. RESULTS OF REPEAT UA NOTED. 09/26/18 13:51 Assessment: 09/26/18 13:50 WITHDRAWAL SYMPTOMS. Plan: CONTINUE DETOX. INCREASE DAILY PO FLUID INTAKE. PRN ZOFRAN SL FOR NAUSEA.
[2018-09-26] MEDS: chlordiazePOXIDE 5 MG CAPSULE PO SCH ×2 (17:42→22:07)
[2018-09-26] MEDS: THIAMINE HCL 100 MG TABLET (FP) PO SCH (22:07)
[2018-09-26] MEDS: traZODone HCL 50 MG TABLET (FP) PO SCH (22:08)
[2018-09-26] MEDS: ATORVASTATIN CA 80 MG TABLET (FP) PO SCH (22:08)
[2018-09-27] MEDS: chlordiazePOXIDE 5 MG CAPSULE PO SCH ×2 (05:08→10:13)
[2018-09-27] MEDS: LEVOTHYROXINE NA 25 MCG TABLET (FP) PO SCH (07:11)
[2018-09-27] MEDS: CLOPIDOGREL BISULFATE 75 MG TABLET (FP) PO SCH (07:11)
[2018-09-27] MEDS: BUDESONIDE/FORMETEROL FUMARATE 80/4.5 mcg INHALER IH SCH ×2 (10:12→23:17)
[2018-09-27] MEDS: RANITIDINE HCL 150 MG TABLET (FP) PO SCH ×2 (10:13→21:08)
[2018-09-27] MEDS: LISINOPRIL 10 MG TABLET (FP) PO SCH (10:13)
[2018-09-27] MEDS: PRENATAL VITAMINS W/ FOLIC ACID TABLET (FP) PO SCH (10:13)
[2018-09-27] MEDS: ARIPiprazole 10 MG TABLET PO SCH (10:13)
[2018-09-27] MEDS: ASPIRIN COATED 81 MG TABLET.EC PO SCH (10:13)
[2018-09-27] MEDS: CYCLOBENZAPRINE HCL 5 MG TABLET PO PRN (10:36)
[2018-09-27] MEDS: TOPIRAMATE 25 MG TABLET (FP) PO SCH ×2 (11:04→22:59)
[2018-09-27 16:45] LABS: ANION GAP 8 MMOL/L (8-16); BLOOD UREA NITROGEN 13 mg/dL (7-18); CALCIUM 9.2 mg/dL (8.5-10.1); CHLORIDE 111 mmol/L (98-107); CO2 23 mmol/L (21-32); GLUCOSE,RANDOM 108 mg/dL (74-106); POTASSIUM 4.2 mmol/L (3.5-5.1); SODIUM 142 mmol/L (136-145)
[2018-09-27] MEDS: chlordiazePOXIDE HCL 10 MG CAPSULE PO SCH ×2 (16:47→22:09)
--- NOTE | 2018-09-27 18:21 | PN ---
[facility] Progress Note (SOAP) Subjective: Tremors, Sweating, Anxious. Objective: PATIENT A & O X 3, OBSERVED AMBULATING ON UNIT. IN NO ACUTE DISTRESS. PATIENT DENIES KNOWN HISTORY OF DM. 09/27/18 18:22 Vital Signs Temperature 96.5 F L 09/27/18 13:23 Pulse Rate 97 H 09/27/18 13:23 Respiratory Rate 20 09/27/18 13:23 Blood Pressure 116/70 09/27/18 13:23 O2 Sat by Pulse Oximetry (%) Laboratory Tests 09/24/18 09/25/18 09/25/18 15:40 07:00 07:00 WBC 5.5 RBC 4.06 Hgb 11.7 Hct 34.3 D MCV 84.5 MCH 28.8 MCHC 34.1 RDW 14.8 Plt Count 199 D MPV 9.7 Sodium 138 Potassium 3.8 Chloride 105 Carbon Dioxide 25 Anion Gap 9 BUN 20 H Creatinine 1.3 Creat Clearance w eGFR 41.78 POC Glucometer Random Glucose 171 H Calcium 8.6 Total Bilirubin 0.3 AST 15 ALT 16 Alkaline Phosphatase 57 Total Protein 6.0 L Albumin 3.1 L Urine Color Yellow Urine Appearance Cloudy Urine pH 5.0 Ur Specific [place] 1.027 Urine Protein Negative Urine Glucose (UA) Negative Urine Ketones Negative Urine Blood Negative Urine Nitrite Negative Urine Bilirubin Negative Urine Urobilinogen Negative Ur Leukocyte Esterase 2+ H Urine WBC (Auto) 17 Urine RBC (Auto) 8 Ur Epithelial Cells Many Calcium Oxalate Crystal Rare Urine Bacteria Urine Mucus Few RPR Titer 09/25/18 09/25/18 09/26/18 07:00 18:50 05:57 WBC RBC Hgb Hct MCV MCH MCHC RDW Plt Count MPV Sodium Potassium Chloride Carbon Dioxide Anion Gap BUN Creatinine Creat Clearance w eGFR POC Glucometer 166 Random Glucose Calcium Total Bilirubin AST ALT Alkaline Phosphatase Total Protein Albumin Urine Color Yellow Urine Appearance Cloudy Urine pH 7.0 D Ur Specific [place] 1.016 Urine Protein Negative Urine Glucose (UA) Negative Urine Ketones Negative Urine Blood Negative Urine Nitrite Negative Urine Bilirubin Negative Urine Urobilinogen Negative Ur Leukocyte Esterase 1+ H Urine WBC (Auto) 2 Urine RBC (Auto) 1 Ur Epithelial Cells Few Calcium Oxalate Crystal Urine Bacteria Rare Urine Mucus RPR Titer Nonreactive 09/27/18 15:09 WBC RBC Hgb Hct MCV MCH MCHC RDW Plt Count MPV Sodium 142 Potassium 4.2 Chloride 111 H Carbon Dioxide 23 Anion Gap 8 BUN 13 Creatinine 1.0 Creat Clearance w eGFR 56.56 POC Glucometer Random Glucose 108 H Calcium 9.2 Total Bilirubin AST ALT Alkaline Phosphatase Total Protein Albumin Urine Color Urine Appearance Urine pH Ur Specific [place] Urine Protein Urine Glucose (UA) Urine Ketones Urine Blood Urine Nitrite Urine Bilirubin Urine Urobilinogen Ur Leukocyte Esterase Urine WBC (Auto) Urine RBC (Auto) Ur Epithelial Cells Calcium Oxalate Crystal Urine Bacteria Urine Mucus RPR Titer LABS NOTED. RESULTS OF BMP NOTED. IMPROVEMENT IN RENAL FUNCTION LABS NOTED. 09/27/18 18:23 Assessment: 09/27/18 18:24 WITHDRAWAL SYMPTOMS. Plan: CONTINUED ETOX. INCREASE DAILY PO FLUID INTAKE. PATIENT SHCEDULED FOR D/C TOMORROW. PATIENT ADVISED TO FOLLOW-UP WITH RUBBING BED OPERATOR DR. EMMIE FELIX ([place], [place]) SOON POSSIBLE AFTER DISCHARGE FROM DETOX UNIT FOR ABNORMAL RENAL AND GLUCOSE LAB VALUES NOTED WHILE ADMITTED FOR DETOX. PATIENT VERBALIZED UNDERSTANDING OF ALL RECOMMENDATIONS. COPIES OF ALL LAB VALUES DRAWN WHILE ADMITTED FOR DETOX TO BE GIVEN TO PATIENT AT TIME OF DISCHARGE FROM DETOX UNIT.
[2018-09-27] MEDS: traZODone HCL 50 MG TABLET (FP) PO SCH (22:09)
[2018-09-27] MEDS: ATORVASTATIN CA 80 MG TABLET (FP) PO SCH (22:09)
[2018-09-27] MEDS: THIAMINE HCL 100 MG TABLET (FP) PO SCH (22:09)
[2018-09-27] MEDS: MELATONIN 5 MG TABLETS PO PRN (22:10)
[2018-09-28] MEDS: chlordiazePOXIDE HCL 10 MG CAPSULE PO SCH ×2 (05:36→10:01)
[2018-09-28] MEDS: CLOPIDOGREL BISULFATE 75 MG TABLET (FP) PO SCH (06:26)
[2018-09-28] MEDS: LEVOTHYROXINE NA 25 MCG TABLET (FP) PO SCH (06:26)
[2018-09-28 09:21] VITALS: BP 126/69; PULSE 93; TEMP 96.6
[2018-09-28] MEDS: ASPIRIN COATED 81 MG TABLET.EC PO SCH (09:25)
[2018-09-28] MEDS: LISINOPRIL 10 MG TABLET (FP) PO SCH (09:25)
[2018-09-28] MEDS: PRENATAL VITAMINS W/ FOLIC ACID TABLET (FP) PO SCH (09:25)
[2018-09-28] MEDS: BUDESONIDE/FORMETEROL FUMARATE 80/4.5 mcg INHALER IH SCH (09:25)
[2018-09-28] MEDS: ARIPiprazole 10 MG TABLET PO SCH (09:25)
[2018-09-28] MEDS: RANITIDINE HCL 150 MG TABLET (FP) PO SCH (09:25)
[2018-09-28] MEDS: TOPIRAMATE 25 MG TABLET (FP) PO SCH (09:33)
[2018-09-28] MEDS: CYCLOBENZAPRINE HCL 5 MG TABLET PO PRN (09:33)
--- NOTE | 2018-09-28 20:22 | DS ---
[facility] Detox Discharge Summary Admission Date: 09/24/18 Discharge Date: 09/28/18 - History Present History: Alcohol Dependence, Cannabis Dependence, Cocaine Dependence Additional Comments: PATIENT GOING TO '[facility]' ([place], [place] ) FOR AFTERCARE. PATIENT AGAIN ADVISED TO FOLLOW-UP WITH HEALTH PLAN MANAGER DR. Santi FELIX ( [place], [place]) WHEN POSSIBLE AFTER DISCHARGE FROM REHAB FOR GENERAL MEDICAL EVALUATION AND FOR ELEVATED BGM AND RANDOM GLUCOSE LEVELS AND FOR ABNORMAL ADMISSION AND REPEAT RENAL LAB VALUES WHILE ADMITTED FOR DETOX. PATIENT VERBALIZED UNDERSTANDING OF ALL RECOMMENDATIONS. PATIENT DENIES KNOWN HISTORY OF DM OR OF RENAL DISEASE. COPIES OF RESULTS OF ALL LABS DRAWN WHILE ADMITTED FOR DETOX GIVEN TO PATIENT TO TAKE WITH AT TIME OF DISCHARGE FROM DETOX UNIT. PATIENT DECLINED OFFER OF MEDICATION PRESCRIPTION FOR HOME MEDICATION AT TIME OF DISCHARGE FROM DETOX, NOTING THAT HE CURRENTLY HAS ADEQUATE SUPPLIES OF ALL PRESCRIBED HOME MEDICATIONS IN PERSONAL PROPERTY THAT SHE BROUGHT WITH HER AT TIME OF ADMISSION TO DETOX UNIT. PATIENT WAS DISCHARGED FROM DETOX UNIT IN STABLE MEDICAL CONDITION. Pertinent Past History: HTN, HYpercholesterolemia, C.A.D, History of Bipolar Disorder, History of Depression, History of Angioplasty With Stent Placement (2), History of Insomnia , Nicotine Dependence, History of C.O.P.D., History of Hypothyroidism. - Physical Exam Results Vital Signs: Vital Signs Temperature 96.6 F L 09/28/18 09:21 Pulse Rate 93 H 09/28/18 09:21 Respiratory Rate 20 09/28/18 09:21 Blood Pressure 126/69 09/28/18 09:21 O2 Sat by Pulse Oximetry (%) Pertinent Admission Physical Exam Findings: WITHDRAWAL SYMPTOMS. Laboratory Tests 09/24/18 09/25/18 09/25/18 15:40 07:00 07:00 WBC 5.5 RBC 4.06 Hgb 11.7 Hct 34.3 D MCV 84.5 MCH 28.8 MCHC 34.1 RDW 14.8 Plt Count 199 D MPV 9.7 Sodium 138 Potassium 3.8 Chloride 105 Carbon Dioxide 25 Anion Gap 9 BUN 20 H Creatinine 1.3 Creat Clearance w eGFR 41.78 POC Glucometer Random Glucose 171 H Calcium 8.6 Total Bilirubin 0.3 AST 15 ALT 16 Alkaline Phosphatase 57 Total Protein 6.0 L Albumin 3.1 L Urine Color Yellow Urine Appearance Cloudy Urine pH 5.0 Ur Specific [place] 1.027 Urine Protein Negative Urine Glucose (UA) Negative Urine Ketones Negative Urine Blood Negative Urine Nitrite Negative Urine Bilirubin Negative Urine Urobilinogen Negative Ur Leukocyte Esterase 2+ H Urine WBC (Auto) 17 Urine RBC (Auto) 8 Ur Epithelial Cells Many Calcium Oxalate Crystal Rare Urine Bacteria Urine Mucus Few RPR Titer 09/25/18 09/25/18 09/26/18 07:00 18:50 05:57 WBC RBC Hgb Hct MCV MCH MCHC RDW Plt Count MPV Sodium Potassium Chloride Carbon Dioxide Anion Gap BUN Creatinine Creat Clearance w eGFR POC Glucometer 166 Random Glucose Calcium Total Bilirubin AST ALT Alkaline Phosphatase Total Protein Albumin Urine Color Yellow Urine Appearance Cloudy Urine pH 7.0 D Ur Specific [place] 1.016 Urine Protein Negative Urine Glucose (UA) Negative Urine Ketones Negative Urine Blood Negative Urine Nitrite Negative Urine Bilirubin Negative Urine Urobilinogen Negative Ur Leukocyte Esterase 1+ H Urine WBC (Auto) 2 Urine RBC (Auto) 1 Ur Epithelial Cells Few Calcium Oxalate Crystal Urine Bacteria Rare Urine Mucus RPR Titer Nonreactive 09/27/18 09/28/18 15:09 06:54 WBC RBC Hgb Hct MCV MCH MCHC RDW Plt Count MPV Sodium 142 Potassium 4.2 Chloride 111 H Carbon Dioxide 23 Anion Gap 8 BUN 13 Creatinine 1.0 Creat Clearance w eGFR 56.56 POC Glucometer 113 Random Glucose 108 H Calcium 9.2 Total Bilirubin AST ALT Alkaline Phosphatase Total Protein Albumin Urine Color Urine Appearance Urine pH Ur Specific [place] Urine Protein Urine Glucose (UA) Urine Ketones Urine Blood Urine Nitrite Urine Bilirubin Urine Urobilinogen Ur Leukocyte Esterase Urine WBC (Auto) Urine RBC (Auto) Ur Epithelial Cells Calcium Oxalate Crystal Urine Bacteria Urine Mucus RPR Titer LABS NOTED. - Treatment Hospital Course: Detox Protocol Followed, Detoxed Safely, Responded well, Discharged Condition Good, Rehab Referral Accepted Patient has Accepted a Rehab Referral to: '[facility] ([place], [place]). - Medication Discharge Medications: Ambulatory Orders Aripiprazole [Abilify -] 10 mg PO DAILY 01/14/17 Atorvastatin Ca [Lipitor] 40 mg PO DAILY 01/14/17 Citalopram Hydrobromide [Celexa -] 40 mg PO DAILY 01/14/17 Famotidine [Pepcid -] 20 mg PO BID 01/14/17 traZODone HCL [Trazodone HCl] 100 mg PO HS 01/14/17 Aripiprazole [Abilify -] 10 mg PO DAILY #30 tablet 01/15/17 Citalopram Hydrobromide [Celexa -] 40 mg PO DAILY #30 tablet 01/15/17 traZODone HCL [Desyrel -] 100 mg PO HS #30 tablet 01/15/17 traZODone HCL [Desyrel -] 100 mg PO HS #30 tablet 01/15/17 traZODone HCL [Trazodone HCl] 100 mg PO HS #30 tablet 01/15/17 Aripiprazole [Abilify] 10 mg PO DAILY 09/24/18 Aspirin [Aspirin EC] 81 mg PO DAILY 09/24/18 Atorvastatin Ca [Lipitor] 40 mg PO DAILY 09/24/18 Atorvastatin Ca [Lipitor] 80 mg PO HS 09/24/18 Clopidogrel Bisulfate [Clopidogrel] 75 mg PO DAILY 09/24/18 Levothyroxine Sodium [Levoxyl] 25 mcg PO DAILY 09/24/18 Lisinopril 10 mg PO DAILY 09/24/18 Metoprolol Succinate 50 mg PO DAILY 09/24/18 SYMBICORT 80/4.5mcg - 2 inhaler PO BID 09/24/18 Topiramate 25 mg PO BID 09/24/18 Topiramate 100 mg PO HS 09/24/18 Trazodone HCl 100 mg PO HS 09/24/18 - Diagnosis (1) Alcohol dependence with uncomplicated withdrawal Status: Acute (2) CAD (coronary artery disease) Status: Acute Qualifiers: Coronary Disease-Associated Artery/Lesion type: unspecified vessel or lesion type [place] vs. transplanted heart: unspecified whether three affiliated or transplanted heart Associated angina: angina presence unspecified Qualified Code(s): I25.10 - Atherosclerotic heart disease of three affiliated coronary artery without angina pectoris (3) COPD (chronic obstructive pulmonary disease) Status: Acute Qualifiers: COPD type: unspecified COPD Qualified Code(s): J44.9 - Chronic obstructive pulmonary disease, unspecified (4) Hypothyroidism Status: Acute Qualifiers: Hypothyroidism type: unspecified Qualified Code(s): E03.9 - Hypothyroidism , unspecified (5) S/P angioplasty with stent Status: Acute (6) Insomnia Status: Chronic Qualifiers: Insomnia type: unspecified Qualified Code(s): G47.00 - Insomnia, unspecified (7) Nicotine dependence Status: Chronic Qualifiers: Nicotine product type: cigarettes Substance use status: uncomplicated Qualified Code(s): F17.210 - Nicotine dependence, cigarettes, uncomplicated (8) Substance induced mood disorder Status: Chronic (9) Cannabis dependence Status: Chronic (10) Cocaine dependence Status: Chronic Qualifiers: Substance use status: uncomplicated Qualified Code(s): F14.20 - Cocaine dependence, uncomplicated - AMA Did Patient Leave Against Medical Advice: No
== END 2018-09-28 10:32 | disposition home or self-care (01) | DRG 774 ==
LOC: YASAS 10:21 → MERGE 14:27 → Y3N 14:27
PROVIDERS: ADMIT Surgery; ATTEND Surgery
PROC: HZ2ZZZZ Detoxification Services for Substance Abuse Treatment (ICD-10-PCS; principal; 2018-09-24)
DX: F10.230 Alcohol dependence with withdrawal, uncomplicated (principal); F14.20 Cocaine dependence, uncomplicated; F12.20 Cannabis dependence, uncomplicated; F17.210 Nicotine dependence, cigarettes, uncomplicated; F19.24 Other psychoactive substance dependence with psychoactive substance-induced mood disorder; F31.9 Bipolar disorder, unspecified; I25.10 Atherosclerotic heart disease of native coronary artery without angina pectoris; Z95.5 Presence of coronary angioplasty implant and graft; G47.00 Insomnia, unspecified; E03.9 Hypothyroidism, unspecified; J44.9 Chronic obstructive pulmonary disease, unspecified
CPT/HCPCS: 36415; 71046-TC-FY; 80048; 80053; 81003; 81015; 82962; 85027; 86593; 93005; 93010; Q0162

== ENCOUNTER 2019-01-28 13:48 | Inpatient (IN) | payer OTHER ==
[2019-01-28 15:28] VITALS: BMI 34.2
--- NOTE | 2019-01-28 18:38 | HP ---
CIWA Score Nausea/Vomitin Muscle Tremors: 3 Anxiety: 3 Agitation: 3 Paroxysmal Sweats: No Perspiration Orientation: 0-Oriented Tacttile Disturbances: 0-None Auditory Disturbances: 0-None Visual Disturbances: 0-None Headache: 1-Very Mild CIWA-Ar Total Score: 12 - Admission Criteria OASAS Guidelines: Admission for Medically Managed Detox: Requires at least one of the followin. CIWA greater than 12 2. Seizures within the past 24 hours 3. Delirium tremens within the past 24 hours 4. Hallucinations within the past 24 hours 5. Acute intervention needed for co occurring medical disorder 6. Acute intervention needed for co occurring psychiatric disorder 7. Severe withdrawal that cannot be handled at a lower level of care (continued vomiting, continued diarrhea, abnormal vital signs) requiring intravenous medication and/or fluids 8. Patient presents the following: CIWA greater than 12 Admission Criteria Met: Admission criteria met Admission ROS [facility] Chief Complaint: here for alcohol detox 59 yo with HTN, high cholesterol, h/o OK with 2 stents, sciatica, hypoT, depression. Last here about 4 months ago- says she relapsed after a few weeks. PCP- Augustine Domínguez. Lives under a housing agency with a roommate. Does not work, SSI alcohol- 1 pint vodka/day, no DT's, seizures cocaine- $100/day THC- occ DUR- no recent controlled meds Allergies/Adverse Reactions: Allergies Allergy/AdvReac Type Severity Reaction Status Date / Time No Known Allergies Allergy Verified 01/28/19 15:16 - Ebola screening Have you traveled outside of the country in the last 21 days: No (N) Have you had contact with anyone from an Ebola affected area: No Do you have a fever: No Patient History - Patient Medical History Hx Anemia: No Hx Asthma: No Hx Chronic Obstructive Pulmonary Disease (COPD): Yes Hx Cancer: No Hx Cardiac Disorders: Yes (s/p angioplasty with 2 stents 0n at [facility]) Hx Congestive Heart Failure: No Hx Hypertension: Yes Hx Hypercholesterolemia: Yes Hx Pacemaker: No HX Cerebrovascular Accident: No Hx Seizures: No Hx Dementia: No Hx Diabetes: No Hx Gastrointestinal Disorders: Yes (On Prilosec) Hx Liver Disease: No Hx Genitourinary Disorders: No Hx Sexually Transmitted Disorders: No Hx Renal Disease (ESRD): No Hx Thyroid Disease: No Hx Human Immunodeficiency Virus (HIV): No (last 2017 negative) Hx Hepatitis C: No Hx Depression: Yes Hx Suicide Attempt: No Hx Bipolar Disorder: Yes (on meds) Hx Schizophrenia: No - Patient Surgical History Past Surgical History: Yes Hx Neurologic Surgery: No Hx Cataract Extraction: No Hx Cardiac Surgery: Yes ( on 09/15/18 [facility]) Hx Lung Surgery: No Hx Breast Surgery: No Hx Breast Biopsy: No Hx Abdominal Surgery: No Hx Appendectomy: No Hx Cholecystectomy: No Hx Genitourinary Surgery: No Hx Section: No Hx Orthopedic Surgery: No Anesthesia Reaction: No - PPD History Documented Results: Positive w/o proof PPD to be Administered?: No - Smoking Cessation Smoking history: Current every day smoker Have you smoked in the past 12 months: Yes Aproximately how many cigarettes per day: 4 Hx Chewing Tobacco Use: No Initiated information on smoking cessation: Yes 'Breaking Loose' booklet given: 01/28/19 - Substance & Tx. History Substance Use Type: Alcohol Hx Substance Use Treatment: Yes - Substances abused Alcohol Substance route: Oral Frequency: Daily Amount used: VODKA-1 PT Age of first use: 16 Date of last use: 01/28/19 Marijuana/Hashish Substance route: Oral Frequency: 1-3 times last 30 days Amount used: $10 Age of first use: 17 Date of last use: 01/28/19 Crack Substance route: Smoking Frequency: Daily Amount used: $100 Age of first use: 41 Date of last use: 01/28/19 Family Disease History - Family Disease History Family History: Denies Admission Physical Exam [facility] - Vital Signs Vital Signs: Vital Signs - 24 hr 01/28/19 15:15 Temperature 97.1 F L Pulse Rate 81 Respiratory 18 Rate Blood Pressure 109/72 - Physical General Appearance: Yes: No Apparent Distress, Obese HEENTM: Yes: Within Normal Limits, Hearing grossly Normal, Normal Voice, RODERICK, Pharynx Normal Respiratory: Yes: Within Normal Limits, Lungs Clear Neck: Yes: Within Normal Limits, No masses,lesions,Nodules Cardiology: Yes: Within Normal Limits, Regular Rhythm, Regular Rate Abdominal: Yes: Non Tender, Protuberent Back: Yes: Within Normal Limits, Normal Inspection Musculoskeletal: Yes: Within Normal Limits Extremities: Yes: Within Normal Limits, Normal Inspection Neurological: Yes: Within Normal Limits, Fully Oriented, Alert Integumentary: Yes: Within Normal Limits, Normal Color, Dry Lymphatic: Yes: Within Normal Limits - Diagnostic (1) Alcohol dependence with uncomplicated withdrawal Current Visit: No Status: Acute (2) CAD (coronary artery disease) Current Visit: No Status: Acute Qualifiers: Coronary Disease-Associated Artery/Lesion type: unspecified vessel or lesion type [place] vs. transplanted heart: unspecified whether [place] or transplanted heart Associated angina: angina presence unspecified Qualified Code(s): I25.10 - Atherosclerotic heart disease of [place] coronary artery without angina pectoris (3) Hypothyroidism Current Visit: No Status: Acute Qualifiers: Hypothyroidism type: unspecified Qualified Code(s): E03.9 - Hypothyroidism , unspecified (4) MDD (major depressive disorder) Current Visit: No Status: Acute Qualifiers: Major depression recurrence: unspecified whether recurrent Active/ Remission status: remission status unspecified Qualified Code(s): F32.9 - Major depressive disorder, single episode, unspecified (5) S/P angioplasty with stent Current Visit: No Status: Acute (6) Alcohol dependence with uncomplicated withdrawal Current Visit: No Status: Chronic (7) Nicotine dependence Current Visit: No Status: Chronic Qualifiers: Nicotine product type: cigarettes Substance use status: uncomplicated Qualified Code(s): F17.210 - Nicotine dependence, cigarettes, uncomplicated Cleared for Admission S - Detox or Rehab [facility] Level of Care: Medically Managed Breathalyzer - Breathalyzer Breathalyzer: 0 Urine Drug Screen - Test Device Lot number: [id number] Expiration date: 10/17/20 - Control Is test valid?: Yes - Results Drug screen NEGATIVE: No Urine drug screen results: SHIRAZ-Cocaine Inpatient Rehab Admission - Rehab Decision to Admit Inpatient rehab admission?: No
[2019-01-28] MEDS ORDERED: METHOCARBAMOL 500 MG TABLET PO PRN (18:43)
[2019-01-28] MEDS ORDERED: MAGNESIUM HYDROX 2400MG/30ML ORAL SUSPENSION 30 ML CUP PO PRN (18:43)
[2019-01-28] MEDS ORDERED: IBUPROFEN 400 MG TABLET (FP) PO PRN (18:43)
[2019-01-28] MEDS ORDERED: BISMUTH SUBSALICYLATE 524 MG/30 ML UD PO PRN (18:43)
[2019-01-28] MEDS ORDERED: MENTHOL/PHENOL 1 EACH UD MM PRN (18:43)
[2019-01-28] MEDS ORDERED: hydrOXYzine PAMOATE 25 MG CAPSULE (FP) PO PRN (18:43)
[2019-01-28] MEDS ORDERED: MAG HYDROX/AL HYDROX/SIMETH 30 ML UNIT-DOSE CUP PO PRN (18:43)
[2019-01-28] MEDS ORDERED: MAGNESIUM CITRATE 300 ML BOTTLE PO PRN (18:43)
[2019-01-28] MEDS ORDERED: ONDANSETRON *ODT* 4 MG TABLET SL PRN (18:43)
[2019-01-28] MEDS ORDERED: ACETAMINOPHEN 325 MG TABLET (FP) PO PRN ×2 (18:43)
[2019-01-28] MEDS ORDERED: chlordiazePOXIDE HCL 25 MG CAPSULE PO ONE (19:45)
[2019-01-28] MEDS ORDERED: TOPIRAMATE 25 MG TABLET (FP) PO SCH (22:00)
[2019-01-28] MEDS ORDERED: TOPIRAMATE 100 MG TABLET PO SCH (22:00)
[2019-01-28] MEDS: chlordiazePOXIDE HCL 25 MG CAPSULE PO SCH (22:07)
[2019-01-28] MEDS: MELATONIN 5 MG TABLETS PO PRN (22:08)
[2019-01-28] MEDS: RANITIDINE HCL 150 MG TABLET (FP) PO SCH (22:09)
[2019-01-28] MEDS: THIAMINE HCL 100 MG TABLET (FP) PO SCH (22:09)
[2019-01-28] MEDS: TOPIRAMATE 100 MG TABLET PO SCH (22:09)
[2019-01-29] MEDS: chlordiazePOXIDE HCL 25 MG CAPSULE PO SCH ×4 (05:41→22:12)
[2019-01-29] MEDS: LEVOTHYROXINE NA 25 MCG TABLET (FP) PO SCH (06:17)
--- NOTE | 2019-01-29 08:44 | EKG ---
Test Reason : Blood Pressure : / mmHG Vent. Rate : 067 BPM Atrial Rate : 067 BPM P-R Int : 158 ms QRS Dur : 094 ms QT Int : 420 ms P-R-T Axes : 013 018 008 degrees QTc Int : 443 ms NORMAL SINUS RHYTHM NORMAL ECG WHEN COMPARED WITH ECG OF 14-JAN-2017 16:18, NONSPECIFIC T WAVE ABNORMALITY NOW EVIDENT IN INFERIOR LEADS Confirmed by TRISTEN PRAKASH, BRANDI ([id number]) on 01/29/2019 8:44:36 AM Referred By: Confirmed By:BRANDI RAMON MD
[2019-01-29] MEDS: TOPIRAMATE 25 MG TABLET (FP) PO SCH ×2 (10:09→13:11)
[2019-01-29] MEDS: ASPIRIN COATED 81 MG TABLET.EC PO SCH (10:09)
[2019-01-29] MEDS: RANITIDINE HCL 150 MG TABLET (FP) PO SCH ×2 (10:09→22:12)
[2019-01-29] MEDS: CLOPIDOGREL BISULFATE 75 MG TABLET (FP) PO SCH (10:09)
[2019-01-29] MEDS: ARIPiprazole 10 MG TABLET PO SCH (10:09)
[2019-01-29] MEDS: metoPROLOL SUCCINATE 25 MG TAB.SR.24H (FP) PO SCH (10:10)
[2019-01-29] MEDS: PRENATAL VITAMINS W/ FOLIC ACID TABLET (FP) PO SCH (10:10)
--- NOTE | 2019-01-29 11:27 | PN ---
S CIWA - CIWA Score Nausea/Vomitin-No Nausea/No Vomiting Muscle Tremors: 4-Moderate,w/Arms Extend Anxiety: 3 Agitation: 4-Moderately Restless Paroxysmal Sweats: 3 Orientation: 0-Oriented Tacttile Disturbances: 0-None Auditory Disturbances: 0-None Visual Disturbances: 0-None Headache: 0-None Present CIWA-Ar Total Score: 14 BHS Progress Note (SOAP) Subjective: shakes sweats body aches interrupted sleep i need my psych medication Objective: 01/29/19 11:26 Vital Signs Temperature 97.7 F 01/29/19 10:00 Pulse Rate 97 H 01/29/19 10:00 Respiratory Rate 18 01/29/19 10:00 Blood Pressure 122/63 01/29/19 10:00 O2 Sat by Pulse Oximetry (%) Laboratory Results - last 24 hr 01/28/19 18:09 POC Urine HCG, Qual Negative rest of labs pending aaox3 ambulating no acute distress Assessment: 01/29/19 11:26 withdrawal sx Plan: continue detox increase fluids psych consultation ordered
[2019-01-29 12:20] LABS: HEMATOCRIT 32.8 % (32.4-45.2); HEMOGLOBIN 10.4 GM/dL (10.7-15.3); MCH 25.1 pg (25.7-33.7); MCHC 31.6 g/dl (32.0-36.0); MEAN CELL VOLUME 79.5 fl (80-96); MEAN PLT VOLUME 9.1 fl (7.5-11.1); RBC 4.13 M/mm3 (3.60-5.2); RDW 15.5 % (11.6-15.6); WHITE BLOOD COUNT 3.9 K/mm3 (4.0-10.0)
[2019-01-29 12:26] LABS: PLATELET COUNT 219 K/MM3 (134-434)
[2019-01-29 12:28] LABS: ALBUMIN 3.5 g/dl (3.4-5.0); BILIRUBIN,TOTAL 0.3 mg/dL (0.2-1); BLOOD UREA NITROGEN 16.5 mg/dL (7-18); CALCIUM 8.9 mg/dL (8.5-10.1); CREATININE 1.1 mg/dL (0.55-1.3); TOT PROT 6.4 g/dl (6.4-8.2)
[2019-01-29] MEDS: chlordiazePOXIDE HCL 25 MG CAPSULE PO PRN (15:35)
[2019-01-29 18:25] LABS: EPI CELLS 8.1 /HPF (0-5/HPF); HYALINE CASTS 3 /lpf (0-8); URINE APPEARANCE CLEAR; URINE BACTERIA 333.6 /hpf (NEGATIVE); URINE BILIRUBIN NEGATIVE (NEGATIVE); URINE COLOR YELLOW; URINE GLUCOSE (UA) NEGATIVE (NEGATIVE); URINE KETONE NEGATIVE (NEGATIVE); URINE LEUK ESTERASE 2+ (NEGATIVE); URINE NITRITE NEGATIVE (NEGATIVE); URINE PROTEIN NEGATIVE (NEGATIVE); URINE RBC 2 /hpf (0-4); URINE UROBILINOGEN 0.2 mg/dL (0.2-1.0); URINE WBC 15 /hpf (0-5)
[2019-01-29] MEDS: TOPIRAMATE 100 MG TABLET PO SCH (22:12)
[2019-01-29] MEDS: MELATONIN 5 MG TABLETS PO PRN (22:12)
[2019-01-29] MEDS: THIAMINE HCL 100 MG TABLET (FP) PO SCH (22:12)
[2019-01-30] MEDS: chlordiazePOXIDE HCL 25 MG CAPSULE PO SCH ×3 (06:17→16:24)
[2019-01-30] MEDS: LEVOTHYROXINE NA 25 MCG TABLET (FP) PO SCH (08:34)
[2019-01-30] MEDS: ARIPiprazole 10 MG TABLET PO SCH (10:25)
[2019-01-30] MEDS: ASPIRIN COATED 81 MG TABLET.EC PO SCH (10:25)
[2019-01-30] MEDS: PRENATAL VITAMINS W/ FOLIC ACID TABLET (FP) PO SCH (10:25)
[2019-01-30] MEDS: metoPROLOL SUCCINATE 25 MG TAB.SR.24H (FP) PO SCH (10:25)
[2019-01-30] MEDS: RANITIDINE HCL 150 MG TABLET (FP) PO SCH ×2 (10:25→22:27)
[2019-01-30] MEDS: CLOPIDOGREL BISULFATE 75 MG TABLET (FP) PO SCH (10:25)
[2019-01-30] MEDS: TOPIRAMATE 25 MG TABLET (FP) PO SCH ×2 (10:25→14:04)
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
--- NOTE | 2019-01-30 12:08 | PN ---
S CIWA - CIWA Score Nausea/Vomitin-No Nausea/No Vomiting Muscle Tremors: 2 Anxiety: 3 Agitation: 3 Paroxysmal Sweats: No Perspiration Orientation: 0-Oriented Tacttile Disturbances: 0-None Auditory Disturbances: 0-None Visual Disturbances: 0-None Headache: 0-None Present CIWA-Ar Total Score: 8 BHS Progress Note (SOAP) Subjective: mild shakes anxiety i need to see the psych for my medication I need to go to rehab tomorrow. Objective: 01/30/19 12:07 Vital Signs Temperature 97.7 F 01/30/19 09:24 Pulse Rate 87 01/30/19 09:24 Respiratory Rate 18 01/30/19 09:24 Blood Pressure 131/73 01/30/19 09:24 O2 Sat by Pulse Oximetry (%) Laboratory Tests 01/28/19 01/29/19 01/29/19 18:09 07:30 07:30 WBC 3.9 L RBC 4.13 Hgb 10.4 L Hct 32.8 MCV 79.5 L MCH 25.1 L D MCHC 31.6 L RDW 15.5 Plt Count 219 MPV 9.1 Sodium 140 Potassium 4.0 Chloride 105 Carbon Dioxide 28 Anion Gap 6 L BUN 16.5 Creatinine 1.1 Est GFR (CKD-EPI)AfAm 62.75 Est GFR (CKD-EPI)NonAf 54.14 Random Glucose 108 H Calcium 8.9 Total Bilirubin 0.3 AST 13 L ALT 17 Alkaline Phosphatase 62 Total Protein 6.4 Albumin 3.5 Urine Color Urine Appearance Urine pH Ur Specific [place] Urine Protein Urine Glucose (UA) Urine Ketones Urine Blood Urine Nitrite Urine Bilirubin Urine Urobilinogen Ur Leukocyte Esterase Urine WBC (Auto) Urine RBC (Auto) Urine Casts (Auto) U Epithel Cells (Auto) Urine Bacteria (Auto) POC Urine HCG, Qual Negative RPR Titer HIV 1&2 Antibody Screen HIV P24 Antigen 01/29/19 01/29/19 01/29/19 07:30 07:30 07:46 WBC RBC Hgb Hct MCV MCH MCHC RDW Plt Count MPV Sodium Potassium Chloride Carbon Dioxide Anion Gap BUN Creatinine Est GFR (CKD-EPI)AfAm Est GFR (CKD-EPI)NonAf Random Glucose Calcium Total Bilirubin AST ALT Alkaline Phosphatase Total Protein Albumin Urine Color Yellow Urine Appearance Clear Urine pH 5.0 D Ur Specific [place] 1.018 Urine Protein Negative Urine Glucose (UA) Negative Urine Ketones Negative Urine Blood Negative Urine Nitrite Negative Urine Bilirubin Negative Urine Urobilinogen 0.2 Ur Leukocyte Esterase 2+ H Urine WBC (Auto) 15 Urine RBC (Auto) 2 Urine Casts (Auto) 3 U Epithel Cells (Auto) 8.1 Urine Bacteria (Auto) 333.6 POC Urine HCG, Qual RPR Titer Nonreactive HIV 1&2 Antibody Screen Negative HIV P24 Antigen Negative labs noted aaox3 ambulating no acute distress Assessment: 01/30/19 12:07 mild withdrawal sx pt has an opportunity to go to inpatient rehab and be picked up; pt was made aware there will be less librium regimen offered and pt in agreement. Plan: continue with decreased librium increase fluids d/c in am
[2019-01-30] MEDS: chlordiazePOXIDE HCL 25 MG CAPSULE PO PRN (12:38)
[2019-01-30] MEDS: THIAMINE HCL 100 MG TABLET (FP) PO SCH (22:27)
[2019-01-30] MEDS: chlordiazePOXIDE HCL 10 MG CAPSULE PO SCH (22:28)
[2019-01-30] MEDS: MELATONIN 5 MG TABLETS PO PRN (22:28)
[2019-01-30] MEDS: TOPIRAMATE 100 MG TABLET PO SCH (22:28)
[2019-01-30] MEDS ORDERED: chlordiazePOXIDE HCL 10 MG CAPSULE PO PRN (23:00)
[2019-01-31] MEDS: chlordiazePOXIDE HCL 10 MG CAPSULE PO SCH (05:45)
[2019-01-31] MEDS: LEVOTHYROXINE NA 25 MCG TABLET (FP) PO SCH (06:28)
--- NOTE | 2019-01-31 09:41 | DS ---
[facility] Detox Discharge Summary Admission Date: 01/28/19 Discharge Date: 01/31/19 - History Present History: Alcohol Dependence, Cannabis Dependence, Cocaine Dependence - Physical Exam Results Vital Signs: Vital Signs Temperature 97.0 F L 01/31/19 06:00 Pulse Rate 77 01/31/19 06:00 Respiratory Rate 18 01/31/19 06:00 Blood Pressure 112/58 L 01/31/19 06:00 O2 Sat by Pulse Oximetry (%) - Treatment Hospital Course: Detox Protocol Followed, Detoxed Safely, Responded well, Discharged Condition Good, Rehab Referral Accepted - Medication Discharge Medications: Ambulatory Orders Famotidine [Pepcid -] 20 mg PO BID 01/14/17 traZODone HCL [Trazodone HCl] 100 mg PO HS #30 tablet 01/15/17 Aripiprazole [Abilify] 10 mg PO DAILY 09/24/18 Topiramate 25 mg PO BID 09/24/18 Aspirin [Aspirin EC] 81 mg PO DAILY #30 tablet.dr 01/31/19 Atorvastatin Ca [Lipitor] 40 mg PO DAILY #30 tablet 01/31/19 Clopidogrel Bisulfate [Plavix -] 75 mg PO DAILY #30 tablet 01/31/19 Levothyroxine Sodium [Levoxyl] 25 mcg PO DAILY #30 tablet 01/31/19 Metoprolol Succinate 25 mg PO DAILY #30 tab.er.24h 01/31/19 - Diagnosis (1) Alcohol dependence with uncomplicated withdrawal Current Visit: Yes Status: Chronic (2) Bipolar disorder Current Visit: Yes Status: Chronic (3) Cannabis dependence Current Visit: Yes Status: Chronic (4) Cocaine dependence Current Visit: Yes Status: Chronic Qualifiers: Substance use status: uncomplicated Qualified Code(s): F14.20 - Cocaine dependence, uncomplicated (5) CAD (coronary artery disease) Current Visit: No Status: Acute Qualifiers: Coronary Disease-Associated Artery/Lesion type: unspecified vessel or lesion type [place] vs. transplanted heart: unspecified whether [place] or transplanted heart Associated angina: angina presence unspecified Qualified Code(s): I25.10 - Atherosclerotic heart disease of [place] coronary artery without angina pectoris (6) COPD (chronic obstructive pulmonary disease) Current Visit: Yes Status: Acute Qualifiers: COPD type: unspecified COPD Qualified Code(s): J44.9 - Chronic obstructive pulmonary disease, unspecified (7) Drug-induced mood disorder Current Visit: No Status: Acute (8) Hypothyroidism Current Visit: Yes Status: Acute Qualifiers: Hypothyroidism type: unspecified Qualified Code(s): E03.9 - Hypothyroidism , unspecified (9) MDD (major depressive disorder) Current Visit: No Status: Acute Qualifiers: Major depression recurrence: unspecified whether recurrent Active/ Remission status: remission status unspecified Qualified Code(s): F32.9 - Major depressive disorder, single episode, unspecified (10) S/P angioplasty with stent Current Visit: No Status: Acute (11) Alcohol dependence with uncomplicated withdrawal Current Visit: No Status: Chronic (12) Insomnia Current Visit: No Status: Chronic Qualifiers: Insomnia type: unspecified Qualified Code(s): G47.00 - Insomnia, unspecified (13) Nicotine dependence Current Visit: Yes Status: Chronic Qualifiers: Nicotine product type: cigarettes Substance use status: uncomplicated Qualified Code(s): F17.210 - Nicotine dependence, cigarettes, uncomplicated (14) Substance induced mood disorder Current Visit: No Status: Chronic - AMA Did Patient Leave Against Medical Advice: No (referred to [facility])
[2019-01-31 09:54] VITALS: BP 161/84; PULSE 93; TEMP 96.8
[2019-01-31] MEDS: CLOPIDOGREL BISULFATE 75 MG TABLET (FP) PO SCH (10:14)
[2019-01-31] MEDS: ARIPiprazole 10 MG TABLET PO SCH (10:14)
[2019-01-31] MEDS: TOPIRAMATE 25 MG TABLET (FP) PO SCH (10:15)
[2019-01-31] MEDS: RANITIDINE HCL 150 MG TABLET (FP) PO SCH (10:15)
[2019-01-31] MEDS: ASPIRIN COATED 81 MG TABLET.EC PO SCH (10:15)
[2019-01-31] MEDS: PRENATAL VITAMINS W/ FOLIC ACID TABLET (FP) PO SCH (10:15)
[2019-01-31] MEDS: metoPROLOL SUCCINATE 25 MG TAB.SR.24H (FP) PO SCH (10:15)
[2019-01-31] MEDS ORDERED: chlordiazePOXIDE HCL 10 MG CAPSULE PO SCH (23:00)
== END 2019-01-31 11:52 | disposition other institution (70) | DRG 774 ==
LOC: YASAS 13:48 → Y6N 19:29
PROVIDERS: ADMIT Surgery; ATTEND Surgery
PROC: HZ2ZZZZ Detoxification Services for Substance Abuse Treatment (ICD-10-PCS; principal; 2019-01-28)
DX: F10.230 Alcohol dependence with withdrawal, uncomplicated (principal); F14.20 Cocaine dependence, uncomplicated; F12.20 Cannabis dependence, uncomplicated; F17.210 Nicotine dependence, cigarettes, uncomplicated; F19.24 Other psychoactive substance dependence with psychoactive substance-induced mood disorder; F32.89 Other specified depressive episodes; F31.9 Bipolar disorder, unspecified; I25.10 Atherosclerotic heart disease of native coronary artery without angina pectoris; I10 Essential (primary) hypertension; Z95.5 Presence of coronary angioplasty implant and graft; I25.2 Old myocardial infarction; E03.9 Hypothyroidism, unspecified; G47.00 Insomnia, unspecified
CPT/HCPCS: 36415; 80053; 81003; 81025; 85027; 86593; 87389; 93005; 93010; Q0162

== ENCOUNTER 2019-03-31 11:44 | Inpatient (IN) | payer OTHER ==
[2019-03-31 14:22] VITALS: BMI 34.7
--- NOTE | 2019-03-31 15:00 | PN ---
Teaching Attending Note Name of Resident: Juliette Holm ATTENDING PHYSICIAN STATEMENT I saw and evaluated the patient. I reviewed the resident's note and discussed the case with the resident. I agree with the resident's findings and plan as documented. SUBJECTIVE: 59 yo with HTN, high cholesterol, h/o OK with 2 stents, sciatica, hypoT, depression. Last here about 2 months ago. Here for alcohol detox. On percocets for kidney stones. Drinking 1 pint of alcohol/day OBJECTIVE: Vital Signs - 24 hr 03/31/19 14:09 Temperature 98.5 F Pulse Rate 67 Respiratory 17 Rate Blood Pressure 134/84 alert and oriented tremulous utox- negative JOSE-neg ASSESSMENT AND PLAN: alcohol detox- pt admitted for detox protocol
[2019-03-31] MEDS ORDERED: NICOTINE POLACRILEX 2 MG GUM BUC PRN (15:20)
[2019-03-31] MEDS ORDERED: MAGNESIUM CITRATE 300 ML BOTTLE PO PRN (15:20)
[2019-03-31] MEDS ORDERED: IBUPROFEN 400 MG TABLET (FP) PO PRN (15:20)
[2019-03-31] MEDS ORDERED: MAG HYDROX/AL HYDROX/SIMETH 30 ML UNIT-DOSE CUP PO PRN (15:20)
[2019-03-31] MEDS ORDERED: BISMUTH SUBSALICYLATE 524 MG/30 ML UD PO PRN (15:20)
[2019-03-31] MEDS ORDERED: MAGNESIUM HYDROX 2400MG/30ML ORAL SUSPENSION 30 ML CUP PO PRN (15:20)
[2019-03-31] MEDS ORDERED: MENTHOL/PHENOL 1 EACH UD MM PRN (15:20)
[2019-03-31] MEDS ORDERED: ACETAMINOPHEN 325 MG TABLET (FP) PO PRN (15:20)
--- NOTE | 2019-03-31 15:37 | HP ---
COWS - Scale Resting Pulse: 0= MA 80 or Below Sweatin= Chills/Flushing Restless Observation: 1= Difficult to Sit Still Pupil Size: 0= Normal to Room Light Bone or Joint Aches: 2= Severe Diffuse Aches Runny Nose/ Eye Tearin= None GI Upset > 30mins: 2= Nausea/Diarrhea Tremor Observation: 1= Tremor [place], Not Seen Yawning Observation: 0= None Anxiety or Irritability: 1=Feels Anxious/Irritable Goose Flesh Skin: 0=Smooth Skin COWS Score: 8 CIWA Score Nausea/Vomitin Muscle Tremors: 2 Anxiety: 3 Agitation: 1-Slight > Activity Paroxysmal Sweats: 2 Orientation: 0-Oriented Tacttile Disturbances: 0-None Auditory Disturbances: 0-None Visual Disturbances: 0-None Headache: 3-Moderate CIWA-Ar Total Score: 13 - Admission Criteria OASAS Guidelines: Admission for Medically Managed Detox: Requires at least one of the followin. CIWA greater than 12 2. Seizures within the past 24 hours 3. Delirium tremens within the past 24 hours 4. Hallucinations within the past 24 hours 5. Acute intervention needed for co occurring medical disorder 6. Acute intervention needed for co occurring psychiatric disorder 7. Severe withdrawal that cannot be handled at a lower level of care (continued vomiting, continued diarrhea, abnormal vital signs) requiring intravenous medication and/or fluids 8. Admission ROS [facility] Chief Complaint: detox from alcohol use Allergies/Adverse Reactions: Allergies Allergy/AdvReac Type Severity Reaction Status Date / Time No Known Allergies Allergy Verified 03/31/19 14:12 History of Present Illness: Mr. Mendez is a 59yo female with hx of ETOH use disorder, opioid use disorder , cocaine use disorder, HTN, MO s/p stent x2 in 2019, HLD, hypothyroidism, anxiety, bipolar disorder, and depression who presents for detox from alcohol use. She reports drinking 1-1.5 pints vodka daily with last use at 2:00am yesterday. She has been drinking this amount the last 6 months. She reports previous detox and rehab stays, the most recent per EMR is detox in January. She denies hx of blackouts or seizures. She also has been using percocet 5mg 8-10/ day for the last 3 months. She reports having a kidney stone 3.5-4 months ago and was given a script for it and liked the way it made her feel, so she began getting them from friends when her script ran out. Her last use was 8am yesterday. She denies any hx of OD. She also uses crack cocaine, $80 worth, and her last use was 4-5 days ago. She also reports smoking about 3 cigarettes daily. She states she wants to get sober because she is running out of money to use and is "getting too old to be doing this." Pt reports nausea, constipation, tremors, agitation, anxiety, chills, diaphoresis, tingling in hands, back pain and body aches. She denies vomiting and hallucinations. PMH: ETOH use disorder, opioid use disorder, cocaine use disorder, HTN, MO s/p stent x2 in 2019, HLD, hypothyroidism, anxiety, bipolar disorder, and depression Surgical hx: cardiac stents family hx: mom-HTN, Alzheimers; dad-prostate and colon cancers meds: ASA, Plavix, Synthroid, lisinopril, metoprolol, atorvastatin, Symbicort, albuterol, topamax, Abilify NKDA social hx: lives in [place] with a roommate - Ebola screening Have you traveled outside of the country in the last 21 days: No Have you had contact with anyone from an Ebola affected area: No Do you have a fever: No - Review of Systems Constitutional: Chills, Diaphoresis, Weakness EENT: reports: No Symptoms Reported Respiratory: denies: Cough, Shortness of Breath, Wheezing Cardiac: denies: Chest Pain GI: reports: Constipated, Nausea. denies: Diarrhea, Vomiting Musculoskeletal: reports: Back Pain, Muscle Pain Integumentary: reports: No Symptoms Reported Neuro: reports: Headache, Tingling Hematology: reports: No Symptoms Reported Psychiatric: reports: Judgement Intact, Mood/Affect Appropiate, Orientated x3 Patient History - Patient Medical History Hx Anemia: No Hx Asthma: No Hx Chronic Obstructive Pulmonary Disease (COPD): Yes Hx Cancer: No Hx Cardiac Disorders: (2 cardiac stent placed) Hx Congestive Heart Failure: No Hx Hypertension: Yes Hx Hypercholesterolemia: Yes Hx Pacemaker: No HX Cerebrovascular Accident: No Hx Seizures: No Hx Dementia: No Hx Diabetes: No Hx Gastrointestinal Disorders: Yes (GERD) Hx Liver Disease: No Hx Genitourinary Disorders: No Hx Sexually Transmitted Disorders: No Hx Renal Disease (ESRD): No Hx Thyroid Disease: No Hx Human Immunodeficiency Virus (HIV): No (last 2017 negative) Hx Hepatitis C: No Hx Depression: Yes Hx Suicide Attempt: No Hx Bipolar Disorder: Yes (on meds) Hx Schizophrenia: No - Patient Surgical History Past Surgical History: Yes Hx Neurologic Surgery: No Hx Cataract Extraction: No Hx Cardiac Surgery: Yes ( on 09/15/18 [facility]) Hx Lung Surgery: No Hx Breast Surgery: No Hx Breast Biopsy: No Hx Abdominal Surgery: No Hx Appendectomy: No Hx Cholecystectomy: No Hx Genitourinary Surgery: No Hx Section: No Hx Orthopedic Surgery: No Anesthesia Reaction: No - Smoking Cessation Smoking history: Current every day smoker Have you smoked in the past 12 months: Yes Aproximately how many cigarettes per day: 4 Cigars Per Day: 0 Hx Chewing Tobacco Use: No Initiated information on smoking cessation: Yes 'Breaking Loose' booklet given: 03/31/19 - Substances abused Alcohol Substance route: Oral Frequency: Daily Amount used: VODKA-1 PT Age of first use: 16 Date of last use: 03/30/19 Marijuana/Hashish Substance route: Oral Frequency: 1-3 times last 30 days Amount used: $10 Age of first use: 17 Date of last use: 01/18/19 Crack Substance route: Smoking Frequency: Daily Amount used: 80 usd Age of first use: 41 Date of last use: 03/27/19 Other Other (specify): Percocets Substance route: Oral Frequency: Daily Amount used: 8-10 pills Age of first use: 59 Date of last use: 03/30/19 Family Disease History - Family Disease History Family Disease History: Heart Disease: Mother (HTN), CA: Father Admission Physical Exam BHS - Vital Signs Vital Signs: Vital Signs - 24 hr 03/31/19 14:09 Temperature 98.5 F Pulse Rate 67 Respiratory 17 Rate Blood Pressure 134/84 - Physical General Appearance: Yes: Mild Distress HEENTM: Yes: Hearing grossly Normal, Normocephalic, ROD[place], Other (dry mucous membranes) Respiratory: Yes: No Respiratory Distress, Wheezing (right lower lobe) Neck: Yes: Within Normal Limits Cardiology: Yes: Regular Rhythm, Regular Rate, Systolic Murmur Abdominal: Yes: Normal Bowel Sounds, Non Tender Back: Yes: Within Normal Limits Musculoskeletal: Yes: full range of Motion Extremities: Yes: Coldness Neurological: Yes: 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 intact, Fully Oriented, Alert, Normal Mood/ Affect, Other (motor strength 4/5) - Diagnostic (1) Alcohol use disorder Current Visit: Yes Status: Chronic (2) Cocaine use disorder Current Visit: Yes Status: Chronic (3) Opioid use disorder Current Visit: Yes Status: Acute (4) Hypertension Current Visit: Yes Status: Chronic Qualifiers: Hypertension type: essential hypertension Qualified Code(s): I10 - Essential (primary) hypertension (5) Hyperlipidemia Current Visit: Yes Status: Chronic Qualifiers: Hyperlipidemia type: unspecified Qualified Code(s): E78.5 - Hyperlipidemia , unspecified (6) Anxiety Current Visit: Yes Status: Chronic (7) CAD (coronary artery disease) Current Visit: No Status: Chronic Qualifiers: Coronary Disease-Associated Artery/Lesion type: unspecified vessel or lesion type [place] vs. transplanted heart: unspecified whether [place] or transplanted heart Associated angina: angina presence unspecified Qualified Code(s): I25.10 - Atherosclerotic heart disease of [place] coronary artery without angina pectoris (8) COPD (chronic obstructive pulmonary disease) Current Visit: Yes Status: Chronic Qualifiers: COPD type: unspecified COPD Qualified Code(s): J44.9 - Chronic obstructive pulmonary disease, unspecified (9) Hypothyroidism Current Visit: Yes Status: Chronic Qualifiers: Hypothyroidism type: unspecified Qualified Code(s): E03.9 - Hypothyroidism , unspecified (10) MDD (major depressive disorder) Current Visit: No Status: Chronic Qualifiers: Major depression recurrence: unspecified whether recurrent Active/ Remission status: remission status unspecified Qualified Code(s): F32.9 - Major depressive disorder, single episode, unspecified (11) S/P angioplasty with stent Current Visit: Yes Status: Acute (12) Bipolar disorder Current Visit: Yes Status: Chronic Qualifiers: Most recent bipolar episode type: most recent episode unspecified type Comment: By history. On medications. (13) Nicotine dependence Current Visit: Yes Status: Chronic Qualifiers: Nicotine product type: cigarettes Substance use status: uncomplicated Qualified Code(s): F17.210 - Nicotine dependence, cigarettes, uncomplicated Cleared for Admission B[facility] - Detox or Rehab [facility] Level of Care: Medically Managed Breathalyzer - Breathalyzer Breathalyzer: 0 Urine Drug Screen - Test Device Lot number: [id number] Expiration date: 10/17/20 - Control Is test valid?: Yes - Results Drug screen NEGATIVE: No Urine drug screen results: SHIRAZ-Cocaine Inpatient Rehab Admission - Rehab Decision to Admit Inpatient rehab admission?: No
[2019-03-31] MEDS: METHOCARBAMOL 500 MG TABLET PO PRN (17:32)
[2019-03-31] MEDS: chlordiazePOXIDE HCL 25 MG CAPSULE PO SCH ×2 (17:32→22:15)
[2019-03-31] MEDS: ALBUTEROL SO4 8 GM HFA INHALER IH SCH ×2 (18:00→22:17)
[2019-03-31] MEDS: chlordiazePOXIDE HCL 25 MG CAPSULE PO PRN (20:21)
[2019-03-31] MEDS ORDERED: PATIENT'S OWN MEDICATION (NON-FORMULARY) (Famotidine [Pepcid -] 20 MG) PO SCH (22:00)
[2019-03-31] MEDS: RANITIDINE HCL 150 MG TABLET (FP) PO SCH (22:16)
[2019-03-31] MEDS: THIAMINE HCL 100 MG TABLET (FP) PO SCH (22:16)
[2019-03-31] MEDS: ATORVASTATIN CA 40 MG TABLET (FP) PO SCH (22:16)
[2019-03-31] MEDS: BUDESONIDE/FORMETEROL FUMARATE 160/4.5 mcg INHALER IH SCH (22:17)
[2019-03-31] MEDS: TOPIRAMATE 100 MG TABLET PO SCH (22:18)
[2019-03-31] MEDS: MELATONIN 5 MG TABLETS PO PRN (22:21)
[2019-04-01] MEDS: ALBUTEROL SO4 8 GM HFA INHALER IH SCH ×3 (00:51→11:02)
[2019-04-01] MEDS: chlordiazePOXIDE HCL 25 MG CAPSULE PO SCH ×4 (05:31→22:43)
[2019-04-01] MEDS: hydrOXYzine PAMOATE 25 MG CAPSULE (FP) PO PRN (09:11)
[2019-04-01] MEDS ORDERED: ALBUTEROL SO4 8 GM HFA INHALER IH PRN (10:13)
[2019-04-01] MEDS: metoPROLOL SUCCINATE 25 MG TAB.SR.24H (FP) PO SCH (10:31)
[2019-04-01] MEDS: PRENATAL VITAMINS W/ FOLIC ACID TABLET (FP) PO SCH (10:31)
[2019-04-01] MEDS: TAMSULOSIN HCL 0.4 MG CAP PO SCH (10:31)
[2019-04-01] MEDS: CLOPIDOGREL BISULFATE 75 MG TABLET (FP) PO SCH (10:31)
[2019-04-01] MEDS: ASPIRIN COATED 81 MG TABLET.EC PO SCH (10:31)
[2019-04-01] MEDS: BUDESONIDE/FORMETEROL FUMARATE 160/4.5 mcg INHALER IH SCH ×2 (10:31→22:43)
[2019-04-01] MEDS: LISINOPRIL 20 MG TABLET (FP) PO SCH (10:31)
[2019-04-01] MEDS: TOPIRAMATE 25 MG TABLET (FP) PO SCH (10:32)
--- NOTE | 2019-04-01 10:42 | PN ---
S CIWA - CIWA Score Nausea/Vomitin-Mild Nausea/No Vomiting Muscle Tremors: 3 Anxiety: 2 Agitation: 3 Paroxysmal Sweats: 2 Orientation: 0-Oriented Tacttile Disturbances: 0-None Auditory Disturbances: 0-None Visual Disturbances: 0-None Headache: 1-Very Mild CIWA-Ar Total Score: 12 S Progress Note (SOAP) Subjective: 59 years old female admitted on 03/31/19 for acute alcohol withdrawal sx management vomited yesterday treated with tigan IM with good result feeling nausea today requests tigan po order tigan po 300 mg po x 1 follow up with tigan 300mg po prn modify ventolin to prn no wheezing no shortness of breathe skin pink and moist Objective: 04/01/19 10:52 Vital Signs Temperature 97.5 F L 04/01/19 09:39 Pulse Rate 86 04/01/19 09:39 Respiratory Rate 18 04/01/19 09:39 Blood Pressure 126/74 04/01/19 09:39 O2 Sat by Pulse Oximetry (%) 04/01/19 10:53 lab pending Assessment: 04/01/19 10:53 alcohol withdrawal sx supportive pharmacotherapeutic measures for GI and pulmonary Plan: continue librium detox regimen
[2019-04-01] MEDS ORDERED: TRIMETHOBENZAMIDE HCL 300 MG CAPSULE PO ONE (10:45)
[2019-04-01 12:58] LABS: ALBUMIN 3.3 g/dl (3.4-5.0); BILIRUBIN,TOTAL 0.3 mg/dL (0.2-1); CALCIUM 8.9 mg/dL (8.5-10.1); CREATININE 1.1 mg/dL (0.55-1.3); POTASSIUM 4.4 mmol/L (3.5-5.1); TOT PROT 6.1 g/dl (6.4-8.2)
[2019-04-01 13:59] LABS: HEMATOCRIT 33.5 % (32.4-45.2); HEMOGLOBIN 10.6 GM/dL (10.7-15.3); MCH 24.7 pg (25.7-33.7); MCHC 31.6 g/dl (32.0-36.0); MEAN CELL VOLUME 78.1 fl (80-96); MEAN PLT VOLUME 9.4 fl (7.5-11.1); PLATELET COUNT 207 K/MM3 (134-434); RBC 4.29 M/mm3 (3.60-5.2); RDW 18.2 % (11.6-15.6); WHITE BLOOD COUNT 4.1 K/mm3 (4.0-10.0)
[2019-04-01] MEDS: METHOCARBAMOL 500 MG TABLET PO PRN (14:17)
[2019-04-01] MEDS: chlordiazePOXIDE HCL 25 MG CAPSULE PO PRN (14:34)
[2019-04-01] MEDS ORDERED: TRIMETHOBENZAMIDE HCL 300 MG CAPSULE PO PRN (16:00)
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
[2019-04-01] MEDS: RANITIDINE HCL 150 MG TABLET (FP) PO SCH (22:43)
[2019-04-01] MEDS: THIAMINE HCL 100 MG TABLET (FP) PO SCH (22:43)
[2019-04-01] MEDS: TOPIRAMATE 100 MG TABLET PO SCH (22:44)
[2019-04-01] MEDS: ATORVASTATIN CA 40 MG TABLET (FP) PO SCH (22:44)
[2019-04-02] MEDS: hydrOXYzine PAMOATE 25 MG CAPSULE (FP) PO PRN ×2 (03:56→17:20)
[2019-04-02] MEDS: chlordiazePOXIDE HCL 25 MG CAPSULE PO SCH ×4 (05:12→23:39)
[2019-04-02] MEDS: chlordiazePOXIDE HCL 25 MG CAPSULE PO PRN ×3 (07:46→19:49)
[2019-04-02] MEDS: ARIPiprazole 10 MG TABLET PO SCH (10:27)
[2019-04-02] MEDS: metoPROLOL SUCCINATE 25 MG TAB.SR.24H (FP) PO SCH (10:27)
[2019-04-02] MEDS: TAMSULOSIN HCL 0.4 MG CAP PO SCH (10:28)
[2019-04-02] MEDS: ASPIRIN COATED 81 MG TABLET.EC PO SCH (10:28)
[2019-04-02] MEDS: BUDESONIDE/FORMETEROL FUMARATE 160/4.5 mcg INHALER IH SCH ×2 (10:28→22:26)
[2019-04-02] MEDS: TOPIRAMATE 25 MG TABLET (FP) PO SCH (10:28)
[2019-04-02] MEDS: PRENATAL VITAMINS W/ FOLIC ACID TABLET (FP) PO SCH (10:28)
[2019-04-02] MEDS: LISINOPRIL 20 MG TABLET (FP) PO SCH (10:28)
[2019-04-02] MEDS: CLOPIDOGREL BISULFATE 75 MG TABLET (FP) PO SCH (10:28)
--- NOTE | 2019-04-02 11:14 | PN ---
[facility] CIWA - CIWA Score Nausea/Vomitin-Mild Nausea/No Vomiting Muscle Tremors: 3 Anxiety: 2 Agitation: 2 Paroxysmal Sweats: 1-Minimal Palms Moist Orientation: 0-Oriented Tacttile Disturbances: 0-None Auditory Disturbances: 0-None Visual Disturbances: 0-None Headache: 0-None Present CIWA-Ar Total Score: 9 S Progress Note (SOAP) Subjective: 59 years old female admitted on 03/31/19 for acute alcohol withdrawal sx management longest sobriety 3 years through community support approach no vomiting today feeling better discuss aftercare as community support group Objective: 04/02/19 11:12 Vital Signs Temperature 98.4 F 04/02/19 09:34 Pulse Rate 78 04/02/19 09:34 Respiratory Rate 18 04/02/19 09:34 Blood Pressure 103/56 L 04/02/19 09:34 O2 Sat by Pulse Oximetry (%) Laboratory Last Values WBC 4.1 K/mm3 (4.0-10.0) 04/01/19 07:30 RBC 4.29 M/mm3 (3.60-5.2) 04/01/19 07:30 Hgb 10.6 GM/dL (10.7-15.3) L 04/01/19 07:30 Hct 33.5 % (32.4-45.2) 04/01/19 07:30 MCV 78.1 fl (80-96) L 04/01/19 07:30 MCH 24.7 pg (25.7-33.7) L 04/01/19 07:30 MCHC 31.6 g/dl (32.0-36.0) L 04/01/19 07:30 RDW 18.2 % (11.6-15.6) H 04/01/19 07:30 Plt Count 207 K/MM3 (134-434) 04/01/19 07:30 MPV 9.4 fl (7.5-11.1) 04/01/19 07:30 Sodium 143 mmol/L (136-145) 04/01/19 07:30 Potassium 4.4 mmol/L (3.5-5.1) 04/01/19 07:30 Chloride 111 mmol/L (98-107) H 04/01/19 07:30 Carbon Dioxide 28 mmol/L (21-32) 04/01/19 07:30 Anion Gap 4 MMOL/L (8-16) L 04/01/19 07:30 BUN 18.0 mg/dL (7-18) 04/01/19 07:30 Creatinine 1.1 mg/dL (0.55-1.3) 04/01/19 07:30 Est GFR (CKD-EPI)AfAm 62.75 04/01/19 07:30 Est GFR (CKD-EPI)NonAf 54.14 04/01/19 07:30 Random Glucose 111 mg/dL (74-106) H 04/01/19 07:30 Calcium 8.9 mg/dL (8.5-10.1) 04/01/19 07:30 Total Bilirubin 0.3 mg/dL (0.2-1) 04/01/19 07:30 AST 10 U/L (15-37) L 04/01/19 07:30 ALT 13 U/L (13-61) 04/01/19 07:30 Alkaline Phosphatase 60 U/L (45-117) 04/01/19 07:30 Total Protein 6.1 g/dl (6.4-8.2) L 04/01/19 07:30 Albumin 3.3 g/dl (3.4-5.0) L 04/01/19 07:30 RPR Titer Nonreactive (NONREACTIVE) 04/01/19 07:30 lab noted alert oriented x 3 steady gait no shortness of breathe Assessment: 04/02/19 11:13 alcohol withdrawal sx management Plan: continue librium detox regimen
[2019-04-02] MEDS ORDERED: cloNIDine HCL 0.1 MG TABLET PO ONE (19:06)
[2019-04-02] MEDS: THIAMINE HCL 100 MG TABLET (FP) PO SCH (22:26)
[2019-04-02] MEDS: RANITIDINE HCL 150 MG TABLET (FP) PO SCH (22:26)
[2019-04-02] MEDS: TOPIRAMATE 100 MG TABLET PO SCH (22:27)
[2019-04-02] MEDS: MELATONIN 5 MG TABLETS PO PRN (22:27)
[2019-04-02] MEDS: ATORVASTATIN CA 40 MG TABLET (FP) PO SCH (22:27)
[2019-04-03] MEDS: chlordiazePOXIDE HCL 10 MG CAPSULE PO SCH ×4 (05:46→22:08)
[2019-04-03] MEDS: chlordiazePOXIDE HCL 10 MG CAPSULE PO PRN ×2 (07:43→14:13)
[2019-04-03] MEDS: BUDESONIDE/FORMETEROL FUMARATE 160/4.5 mcg INHALER IH SCH ×2 (10:17→22:08)
[2019-04-03] MEDS: metoPROLOL SUCCINATE 25 MG TAB.SR.24H (FP) PO SCH (10:18)
[2019-04-03] MEDS: CLOPIDOGREL BISULFATE 75 MG TABLET (FP) PO SCH (10:18)
[2019-04-03] MEDS: TOPIRAMATE 25 MG TABLET (FP) PO SCH (10:18)
[2019-04-03] MEDS: ARIPiprazole 10 MG TABLET PO SCH (10:18)
[2019-04-03] MEDS: ASPIRIN COATED 81 MG TABLET.EC PO SCH (10:18)
[2019-04-03] MEDS: TAMSULOSIN HCL 0.4 MG CAP PO SCH (10:18)
[2019-04-03] MEDS: PRENATAL VITAMINS W/ FOLIC ACID TABLET (FP) PO SCH (10:18)
[2019-04-03] MEDS: LISINOPRIL 20 MG TABLET (FP) PO SCH (10:18)
[2019-04-03] MEDS: METHOCARBAMOL 500 MG TABLET PO PRN ×2 (10:20→17:43)
--- NOTE | 2019-04-03 10:29 | PN ---
S CIWA - CIWA Score Nausea/Vomitin-Mild Nausea/No Vomiting (limited food and fluid toleration ensure supplement) Muscle Tremors: 2 Anxiety: 1-Mildly Anxious Agitation: 2 Paroxysmal Sweats: No Perspiration Orientation: 0-Oriented Tacttile Disturbances: 0-None Auditory Disturbances: 0-None Visual Disturbances: 0-None Headache: 0-None Present CIWA-Ar Total Score: 6 S Progress Note (SOAP) Subjective: doing well with librium detox regimen limited food and fluid toleration ensure supplement trouble sleeping at night discuss sleep hygiene refuses seroquel and trazodone for insomnia seen by psychiatrist kenny whitfield Objective: 04/03/19 10:38 Vital Signs Temperature 97.4 F L 04/03/19 09:30 Pulse Rate 83 04/03/19 09:30 Respiratory Rate 16 04/03/19 09:30 Blood Pressure 115/74 04/03/19 09:30 O2 Sat by Pulse Oximetry (%) Laboratory Last Values WBC 4.1 K/mm3 (4.0-10.0) 04/01/19 07:30 RBC 4.29 M/mm3 (3.60-5.2) 04/01/19 07:30 Hgb 10.6 GM/dL (10.7-15.3) L 04/01/19 07:30 Hct 33.5 % (32.4-45.2) 04/01/19 07:30 MCV 78.1 fl (80-96) L 04/01/19 07:30 MCH 24.7 pg (25.7-33.7) L 04/01/19 07:30 MCHC 31.6 g/dl (32.0-36.0) L 04/01/19 07:30 RDW 18.2 % (11.6-15.6) H 04/01/19 07:30 Plt Count 207 K/MM3 (134-434) 04/01/19 07:30 MPV 9.4 fl (7.5-11.1) 04/01/19 07:30 Sodium 143 mmol/L (136-145) 04/01/19 07:30 Potassium 4.4 mmol/L (3.5-5.1) 04/01/19 07:30 Chloride 111 mmol/L (98-107) H 04/01/19 07:30 Carbon Dioxide 28 mmol/L (21-32) 04/01/19 07:30 Anion Gap 4 MMOL/L (8-16) L 04/01/19 07:30 BUN 18.0 mg/dL (7-18) 04/01/19 07:30 Creatinine 1.1 mg/dL (0.55-1.3) 04/01/19 07:30 Est GFR (CKD-EPI)AfAm 62.75 04/01/19 07:30 Est GFR (CKD-EPI)NonAf 54.14 04/01/19 07:30 Random Glucose 111 mg/dL (74-106) H 04/01/19 07:30 Calcium 8.9 mg/dL (8.5-10.1) 04/01/19 07:30 Total Bilirubin 0.3 mg/dL (0.2-1) 04/01/19 07:30 AST 10 U/L (15-37) L 04/01/19 07:30 ALT 13 U/L (13-61) 04/01/19 07:30 Alkaline Phosphatase 60 U/L (45-117) 04/01/19 07:30 Total Protein 6.1 g/dl (6.4-8.2) L 04/01/19 07:30 Albumin 3.3 g/dl (3.4-5.0) L 04/01/19 07:30 RPR Titer Nonreactive (NONREACTIVE) 04/01/19 07:30 lab noted Assessment: 04/03/19 10:39 alcohol withdrawal sx alert oriented x 3 S1S2 Regular no wheezing abdomen soft hyperactive x 4 non tender diarrhea Plan: continue librium detox regimen
[2019-04-03] MEDS: hydrOXYzine PAMOATE 25 MG CAPSULE (FP) PO PRN (17:43)
[2019-04-03] MEDS: THIAMINE HCL 100 MG TABLET (FP) PO SCH (22:07)
[2019-04-03] MEDS: TOPIRAMATE 100 MG TABLET PO SCH (22:08)
[2019-04-03] MEDS: ATORVASTATIN CA 40 MG TABLET (FP) PO SCH (22:08)
[2019-04-03] MEDS: RANITIDINE HCL 150 MG TABLET (FP) PO SCH (22:08)
[2019-04-03] MEDS: MELATONIN 5 MG TABLETS PO PRN (22:09)
[2019-04-04] MEDS: hydrOXYzine PAMOATE 25 MG CAPSULE (FP) PO PRN ×2 (02:11→10:51)
[2019-04-04] MEDS: chlordiazePOXIDE HCL 10 MG CAPSULE PO SCH ×2 (05:54→17:26)
[2019-04-04] MEDS: BUDESONIDE/FORMETEROL FUMARATE 160/4.5 mcg INHALER IH SCH ×2 (10:47→22:22)
[2019-04-04] MEDS: ARIPiprazole 10 MG TABLET PO SCH (10:47)
[2019-04-04] MEDS: PRENATAL VITAMINS W/ FOLIC ACID TABLET (FP) PO SCH (10:47)
[2019-04-04] MEDS: LISINOPRIL 20 MG TABLET (FP) PO SCH (10:48)
[2019-04-04] MEDS: CLOPIDOGREL BISULFATE 75 MG TABLET (FP) PO SCH (10:48)
[2019-04-04] MEDS: metoPROLOL SUCCINATE 25 MG TAB.SR.24H (FP) PO SCH (10:48)
[2019-04-04] MEDS: ASPIRIN COATED 81 MG TABLET.EC PO SCH (10:48)
[2019-04-04] MEDS: TOPIRAMATE 25 MG TABLET (FP) PO SCH (10:48)
[2019-04-04] MEDS: TAMSULOSIN HCL 0.4 MG CAP PO SCH (10:49)
[2019-04-04] MEDS: METHOCARBAMOL 500 MG TABLET PO PRN (10:51)
--- NOTE | 2019-04-04 15:05 | PN ---
S CIWA - CIWA Score Nausea/Vomitin-No Nausea/No Vomiting Muscle Tremors: None Anxiety: 2 Agitation: 0-Normal Activity Paroxysmal Sweats: No Perspiration Orientation: 2-Disoriented Date<2 days Tacttile Disturbances: 0-None Auditory Disturbances: 0-None Visual Disturbances: 1-Very Mild Sensitivity Headache: 0-None Present CIWA-Ar Total Score: 5 BHS Progress Note (SOAP) Subjective: Fatigue. Patient reports that current Withdrawal Symptoms are minimal and that she feels well overall. Objective: PATIENT A & O X 2 (UNCERTAIN ABOUT CURRENT DAY / DATE). PATIENT OBSERVED AMBULATING ON UNIT UNASSISTED. IN NO ACUTE DISTRESS. 04/04/19 15:02 Vital Signs Temperature 96.9 F L 04/04/19 13:11 Pulse Rate 86 04/04/19 13:11 Respiratory Rate 18 04/04/19 13:11 Blood Pressure 130/79 04/04/19 13:11 O2 Sat by Pulse Oximetry (%) Laboratory Tests 04/01/19 04/01/19 04/01/19 07:30 07:30 07:30 WBC 4.1 RBC 4.29 Hgb 10.6 L Hct 33.5 MCV 78.1 L MCH 24.7 L MCHC 31.6 L RDW 18.2 H Plt Count 207 MPV 9.4 Sodium 143 Potassium 4.4 Chloride 111 H Carbon Dioxide 28 Anion Gap 4 L BUN 18.0 Creatinine 1.1 Est GFR (CKD-EPI)AfAm 62.75 Est GFR (CKD-EPI)NonAf 54.14 Random Glucose 111 H Calcium 8.9 Total Bilirubin 0.3 AST 10 L ALT 13 Alkaline Phosphatase 60 Total Protein 6.1 L Albumin 3.3 L RPR Titer Nonreactive TB (QFT) Incubation TB Test (QFT) Nil TB Test (QFT) Mitogen TB Test (QFT) Antigen TB Test (QFT) TB Positive Criteria 04/01/19 07:30 WBC RBC Hgb Hct MCV MCH MCHC RDW Plt Count MPV Sodium Potassium Chloride Carbon Dioxide Anion Gap BUN Creatinine Est GFR (CKD-EPI)AfAm Est GFR (CKD-EPI)NonAf Random Glucose Calcium Total Bilirubin AST ALT Alkaline Phosphatase Total Protein Albumin RPR Titer TB (QFT) Incubation TB Test (QFT) Nil 0.10 TB Test (QFT) Mitogen >10.00 TB Test (QFT) Antigen 0.36 TB Test (QFT) Negative TB Positive Criteria LABS NOTED. Assessment: 04/04/19 15:03 WITHDRAWAL SYMPTOMS. ANEMIA (MILD). Plan: CONTINUE DETOX. PATIENT HAS BEEN RECEIVING DAILY MVI CONTAINING B VITAMINS AND IRON WHILE ADMITTED FOR DETOX. PATIENT SCHEDULED FOR DISCHARGE FROM DETOX UNIT TOMORROW.
[2019-04-04] MEDS: ACETAMINOPHEN 325 MG TABLET (FP) PO PRN ×2 (15:19→22:24)
[2019-04-04] MEDS: RANITIDINE HCL 150 MG TABLET (FP) PO SCH (22:22)
[2019-04-04] MEDS: THIAMINE HCL 100 MG TABLET (FP) PO SCH (22:22)
[2019-04-04] MEDS: ATORVASTATIN CA 40 MG TABLET (FP) PO SCH (22:22)
[2019-04-04] MEDS: TOPIRAMATE 100 MG TABLET PO SCH (22:22)
[2019-04-04] MEDS: MELATONIN 5 MG TABLETS PO PRN (22:23)
[2019-04-05] MEDS: METHOCARBAMOL 500 MG TABLET PO PRN (00:29)
[2019-04-05] MEDS ORDERED: chlordiazePOXIDE HCL 10 MG CAPSULE PO ONE (05:00)
[2019-04-05] MEDS: ACETAMINOPHEN 325 MG TABLET (FP) PO PRN (05:41)
[2019-04-05 06:38] VITALS: BP 117/73; PULSE 77; TEMP 98
[2019-04-05] MEDS: TAMSULOSIN HCL 0.4 MG CAP PO SCH (11:21)
[2019-04-05] MEDS: ARIPiprazole 10 MG TABLET PO SCH (11:21)
[2019-04-05] MEDS: ASPIRIN COATED 81 MG TABLET.EC PO SCH (11:21)
[2019-04-05] MEDS: CLOPIDOGREL BISULFATE 75 MG TABLET (FP) PO SCH (11:22)
[2019-04-05] MEDS: LISINOPRIL 20 MG TABLET (FP) PO SCH (11:23)
[2019-04-05] MEDS: metoPROLOL SUCCINATE 25 MG TAB.SR.24H (FP) PO SCH (11:23)
[2019-04-05] MEDS: BUDESONIDE/FORMETEROL FUMARATE 160/4.5 mcg INHALER IH SCH (11:23)
[2019-04-05] MEDS: TOPIRAMATE 25 MG TABLET (FP) PO SCH (11:23)
[2019-04-05] MEDS: PRENATAL VITAMINS W/ FOLIC ACID TABLET (FP) PO SCH (11:23)
--- NOTE | 2019-04-05 16:26 | DS ---
[facility] Detox Discharge Summary Admission Date: 03/31/19 Discharge Date: 04/05/19 - History Present History: Alcohol Dependence, Cocaine Dependence, Opioid Dependence Additional Comments: PATIENT ELECTING TO RETURN HOME. PATIENT WILL ATTEND LOCAL 12-STEP / AA / NA OUTPATIENT SUPPORT GROUP MEETINGS FOR AFTERCARE. PATIENT WILL CONSIDER REHAB ADMISSION FOR A LATER TIME, POSSIBLY AT [facility] ( [place], [place]). PATIENT DECLINED OFFER OF MEDICATION PRESCRIPTION FOR HOME MEDICATION AT TIME OF DISCHARGE FROM DETOX, NOTING THAT SHE CURRENTLY HAS ADEQUATE SUPPLIES OF ALL PRESCRIBED HOME MEDICATIONS AT HOME. TRANSPORTATION ARRANGED FOR PATIENT TO ASSIST HER IN RETURNING SAFELY TO HER HOME TODAY. PATIENT WAS DISCHARGED FROM DETOX UNIT IN STABLE MEDICAL CONDITION. Pertinent Past History: HTN, History of LA, S/P Cardiac Stents (X 2), Hyperlipidemia, Hypothyroidism, Anxiety, Bipolar Disorder, Major Depressive Disorder, C.O.P.D., Coronary Artery Disease, S/P Angioplasty W/ Stent, Nicotine Dependence, Insomnia. - Physical Exam Results Vital Signs: Vital Signs Temperature 98.0 F 04/05/19 06:38 Pulse Rate 77 04/05/19 06:38 Respiratory Rate 18 04/05/19 06:38 Blood Pressure 117/73 04/05/19 06:38 O2 Sat by Pulse Oximetry (%) Pertinent Admission Physical Exam Findings: WITHDRAWAL SYMPTOMS. Laboratory Tests 04/01/19 04/01/19 04/01/19 07:30 07:30 07:30 WBC 4.1 RBC 4.29 Hgb 10.6 L Hct 33.5 MCV 78.1 L MCH 24.7 L MCHC 31.6 L RDW 18.2 H Plt Count 207 MPV 9.4 Sodium 143 Potassium 4.4 Chloride 111 H Carbon Dioxide 28 Anion Gap 4 L BUN 18.0 Creatinine 1.1 Est GFR (CKD-EPI)AfAm 62.75 Est GFR (CKD-EPI)NonAf 54.14 Random Glucose 111 H Calcium 8.9 Total Bilirubin 0.3 AST 10 L ALT 13 Alkaline Phosphatase 60 Total Protein 6.1 L Albumin 3.3 L RPR Titer Nonreactive TB (QFT) Incubation TB Test (QFT) Nil TB Test (QFT) Mitogen TB Test (QFT) Antigen TB Test (QFT) TB Positive Criteria 04/01/19 07:30 WBC RBC Hgb Hct MCV MCH MCHC RDW Plt Count MPV Sodium Potassium Chloride Carbon Dioxide Anion Gap BUN Creatinine Est GFR (CKD-EPI)AfAm Est GFR (CKD-EPI)NonAf Random Glucose Calcium Total Bilirubin AST ALT Alkaline Phosphatase Total Protein Albumin RPR Titer TB (QFT) Incubation TB Test (QFT) Nil 0.10 TB Test (QFT) Mitogen >10.00 TB Test (QFT) Antigen 0.36 TB Test (QFT) Negative TB Positive Criteria LABS NOTED. - Treatment Hospital Course: Detox Protocol Followed, Detoxed Safely, Responded well, Discharged Condition Good Patient has Accepted a Rehab Referral to: PT. WILL ATTEND LOCAL 12-STEP/AA/NA OUTPAITENT SUPPORR GROUP MEETINGS. - Medication Discharge Medications: Ambulatory Orders Famotidine [Pepcid -] 20 mg PO BID 01/14/17 traZODone HCL [Trazodone HCl] 100 mg PO HS #30 tablet 01/15/17 Aripiprazole [Abilify] 10 mg PO DAILY 09/24/18 Topiramate 25 mg PO DAILY 09/24/18 Aspirin [Aspirin EC] 81 mg PO DAILY #30 tablet.dr 01/31/19 Atorvastatin Ca [Lipitor] 40 mg PO DAILY #30 tablet 01/31/19 Clopidogrel Bisulfate [Plavix -] 75 mg PO DAILY #30 tablet 01/31/19 Levothyroxine Sodium [Levoxyl] 25 mcg PO DAILY #30 tablet 01/31/19 Metoprolol Succinate 25 mg PO DAILY #30 tab.er.24h 01/31/19 Topiramate [Topamax -] 100 mg PO HS #30 tablet 01/31/19 Albuterol Sulfate Inhaler - [Ventolin HFA Inhaler -] 2 puff IH Q4H 03/31/19 Budesonide/Formeterol Fumarate [SYMBICORT 160/4.5mcg -] 2 puff IH BID 03/31/19 Famotidine [Acid Controller] 40 mg PO DAILY 03/31/19 Lisinopril 20 mg PO DAILY 03/31/19 Tamsulosin HCl 0.4 mg PO DAILY 03/31/19 - Diagnosis (1) S/P angioplasty with stent Status: Chronic (2) Bipolar disorder Status: Chronic Qualifiers: Active/Remission status: remission status unspecified Qualified Code(s): F31.9 - Bipolar disorder, unspecified (3) CAD (coronary artery disease) Status: Chronic Qualifiers: Coronary Disease-Associated Artery/Lesion type: unspecified vessel or lesion type [place] vs. transplanted heart: unspecified whether [place] or transplanted heart Associated angina: angina presence unspecified Qualified Code(s): I25.10 - Atherosclerotic heart disease of [place] coronary artery without angina pectoris (4) COPD (chronic obstructive pulmonary disease) Status: Chronic Qualifiers: COPD type: unspecified COPD Qualified Code(s): J44.9 - Chronic obstructive pulmonary disease, unspecified (5) Cocaine use disorder Status: Chronic (6) Hyperlipidemia Status: Chronic Qualifiers: Hyperlipidemia type: unspecified Qualified Code(s): E78.5 - Hyperlipidemia , unspecified (7) Hypertension Status: Chronic Qualifiers: Hypertension type: essential hypertension Qualified Code(s): I10 - Essential (primary) hypertension (8) Hypothyroidism Status: Chronic Qualifiers: Hypothyroidism type: unspecified Qualified Code(s): E03.9 - Hypothyroidism , unspecified (9) MDD (major depressive disorder) Status: Chronic Qualifiers: Major depression recurrence: unspecified whether recurrent Active/ Remission status: remission status unspecified Qualified Code(s): F32.9 - Major depressive disorder, single episode, unspecified (10) Nicotine dependence Status: Chronic Qualifiers: Nicotine product type: cigarettes Substance use status: uncomplicated Qualified Code(s): F17.210 - Nicotine dependence, cigarettes, uncomplicated (11) Opioid use disorder Status: Acute (12) Alcohol use disorder Status: Acute (13) Insomnia Status: Chronic Qualifiers: Insomnia type: unspecified Qualified Code(s): G47.00 - Insomnia, unspecified (14) Substance induced mood disorder Status: Chronic (15) Anxiety Status: Chronic - AMA Did Patient Leave Against Medical Advice: No S CIWA - CIWA Score Nausea/Vomitin-No Nausea/No Vomiting Muscle Tremors: None Anxiety: 1-Mildly Anxious Agitation: 1-Slight > Activity Paroxysmal Sweats: No Perspiration Orientation: 0-Oriented Tacttile Disturbances: 0-None Auditory Disturbances: 0-None Visual Disturbances: 0-None Headache: 0-None Present CIWA-Ar Total Score: 2 BHS COWS - Scale Resting Pulse: 0= [place] 80 or Below Sweatin= No chills or Flushing Restless Observation: 1= Difficult to Sit Still Pupil Size: 0= Normal to Room Light Bone or Joint Aches: 0= None Runny Nose/ Eye Tearin= None GI Upset > 30mins: 0= None Tremor Observation of Outstretched Hands: 0= None Yawning Observation: 1= 1-2x During Session Anxiety or Irritability: 0= None Goose Flesh Skin: 0=Smooth Skin COWS Score: 2
== END 2019-04-05 10:00 | disposition home or self-care (01) | DRG 773 ==
LOC: YASAS 11:44 → Y3N 15:44
PROVIDERS: ADMIT Surgery; ATTEND Surgery
PROC: HZ2ZZZZ Detoxification Services for Substance Abuse Treatment (ICD-10-PCS; principal; 2019-03-31)
DX: F10.230 Alcohol dependence with withdrawal, uncomplicated (principal); F11.20 Opioid dependence, uncomplicated; F14.20 Cocaine dependence, uncomplicated; F17.210 Nicotine dependence, cigarettes, uncomplicated; F19.24 Other psychoactive substance dependence with psychoactive substance-induced mood disorder; F32.9 Major depressive disorder, single episode, unspecified; F41.9 Anxiety disorder, unspecified; I10 Essential (primary) hypertension; I25.10 Atherosclerotic heart disease of native coronary artery without angina pectoris; I25.2 Old myocardial infarction; J44.9 Chronic obstructive pulmonary disease, unspecified; E78.5 Hyperlipidemia, unspecified; E03.9 Hypothyroidism, unspecified; G47.00 Insomnia, unspecified; D64.9 Anemia, unspecified; K21.9 Gastro-esophageal reflux disease without esophagitis; R00.0 Tachycardia, unspecified; E66.9 Obesity, unspecified; Z68.34 Body mass index [BMI] 34.0-34.9, adult; Z95.5 Presence of coronary angioplasty implant and graft
CPT/HCPCS: 36415; 80053; 85027; 86480; 86593; J0735

== ENCOUNTER 2019-05-08 11:36 | Inpatient (IN) | payer OTHER ==
[2019-05-08 13:36] VITALS: BMI 34.2
--- NOTE | 2019-05-08 14:18 | HP ---
CIWA Score Nausea/Vomitin Muscle Tremors: 3 Anxiety: 3 Agitation: 2 Paroxysmal Sweats: No Perspiration Orientation: 0-Oriented Tacttile Disturbances: 0-None Auditory Disturbances: 0-None Visual Disturbances: 0-None Headache: 2-Mild CIWA-Ar Total Score: 12 - Admission Criteria OASAS Guidelines: Admission for Medically Managed Detox: Requires at least one of the followin. CIWA greater than 12 2. Seizures within the past 24 hours 3. Delirium tremens within the past 24 hours 4. Hallucinations within the past 24 hours 5. Acute intervention needed for co occurring medical disorder 6. Acute intervention needed for co occurring psychiatric disorder 7. Severe withdrawal that cannot be handled at a lower level of care (continued vomiting, continued diarrhea, abnormal vital signs) requiring intravenous medication and/or fluids 8. Admission ROS [facility] Chief Complaint: alcohol detox Allergies/Adverse Reactions: Allergies Allergy/AdvReac Type Severity Reaction Status Date / Time No Known Allergies Allergy Verified 05/08/19 13:23 History of Present Illness: Andrea is a 59yo female with hx of ETOH use disorder, opioid use disorder, cocaine use disorder, HTN, OR s/p stent x2 in 2019, HLD, hypothyroidism, anxiety , bipolar disorder, and depression who presents for detox from alcohol use. She reports drinking 1-1.5 pints vodka daily, presenting here for alcohol detox. Last drink 5:30 am this morning-22oz coors light. Was here about a month ago and completed 5 days. Says she got back on the streets and started drinking again. No hx of seizures, black outs. Also smokes crack/cocaine daily. 100 dollars a day worth. Denies IV drug use. Smokes 2-3 cigarettes a day. unemployed. lives in a shared apartment. Exam Limitations: No Limitations - Ebola screening Have you traveled outside of the country in the last 21 days: No Have you had contact with anyone from an Ebola affected area: No Do you have a fever: No - Review of Systems Constitutional: Weight Stable Respiratory: denies: Cough, Shortness of Breath Cardiac: denies: Chest Pain, Palpitations Patient History - Patient Medical History Hx Anemia: No Hx Asthma: No Hx Chronic Obstructive Pulmonary Disease (COPD): Yes Hx Cancer: No Hx Cardiac Disorders: (2 cardiac stent placed) Hx Congestive Heart Failure: No Hx Hypertension: Yes Hx Hypercholesterolemia: Yes Hx Pacemaker: No HX Cerebrovascular Accident: No Hx Seizures: No Hx Dementia: No Hx Diabetes: No Hx Gastrointestinal Disorders: Yes (GERD) Hx Liver Disease: No Hx Genitourinary Disorders: No Hx Sexually Transmitted Disorders: No Hx Renal Disease (ESRD): No Hx Thyroid Disease: No Hx Human Immunodeficiency Virus (HIV): No (last 2016 negative) Hx Hepatitis C: No Hx Depression: Yes Hx Suicide Attempt: No Hx Bipolar Disorder: Yes (on meds) Hx Schizophrenia: No - Patient Surgical History Past Surgical History: Yes Hx Neurologic Surgery: No Hx Cataract Extraction: No Hx Cardiac Surgery: Yes ( on 09/15/18 [facility]) Hx Lung Surgery: No Hx Breast Surgery: No Hx Breast Biopsy: No Hx Abdominal Surgery: No Hx Appendectomy: No Hx Cholecystectomy: No Hx Genitourinary Surgery: No Hx Section: No Hx Orthopedic Surgery: No Anesthesia Reaction: No - Smoking Cessation Smoking history: Current every day smoker Have you smoked in the past 12 months: Yes Aproximately how many cigarettes per day: 4 Cigars Per Day: 0 Hx Chewing Tobacco Use: No Initiated information on smoking cessation: Yes 'Breaking Loose' booklet given: 05/08/19 - Substances abused Alcohol Substance route: Oral Frequency: Daily Amount used: VODKA-1 PT Age of first use: 16 Date of last use: 05/08/19 Marijuana/Hashish Substance route: Oral Frequency: 1-3 times last 30 days Amount used: $10 Age of first use: 17 Date of last use: 01/18/19 Crack Substance route: Smoking Frequency: Daily Amount used: $100/day Age of first use: 41 Date of last use: 05/07/19 Other Other (specify): Percocets Substance route: Oral Frequency: Daily Amount used: 8-10 pills Age of first use: 59 Date of last use: 03/30/19 Admission Physical Exam S - Vital Signs Vital Signs: Vital Signs - 24 hr 05/08/19 13:31 Temperature 97.2 F L Pulse Rate 69 Respiratory 18 Rate Blood Pressure 133/79 - Physical General Appearance: Yes: No Apparent Distress Respiratory: Yes: No Respiratory Distress, No Accessory Muscle Use Cardiology: Yes: Regular Rhythm, Regular Rate Abdominal: Yes: Non Tender, Soft Extremities: Yes: Swelling (R Hand swelling, echymossis from fall) - Diagnostic (1) Alcohol dependence with uncomplicated withdrawal Current Visit: No Status: Acute (2) Drug-induced mood disorder Current Visit: No Status: Acute (3) Opioid use disorder Current Visit: No Status: Acute (4) Anxiety Current Visit: No Status: Chronic (5) Bipolar disorder Current Visit: No Status: Chronic Qualifiers: Active/Remission status: remission status unspecified Qualified Code(s): F31.9 - Bipolar disorder, unspecified Comment: By history. On medications. (6) CAD (coronary artery disease) Current Visit: No Status: Chronic Qualifiers: Coronary Disease-Associated Artery/Lesion type: unspecified vessel or lesion type [place] vs. transplanted heart: unspecified whether [place] or transplanted heart Associated angina: angina presence unspecified Qualified Code(s): I25.10 - Atherosclerotic heart disease of [place] coronary artery without angina pectoris (7) COPD (chronic obstructive pulmonary disease) Current Visit: No Status: Chronic Qualifiers: COPD type: unspecified COPD Qualified Code(s): J44.9 - Chronic obstructive pulmonary disease, unspecified (8) Cocaine dependence Current Visit: No Status: Chronic Qualifiers: Substance use status: uncomplicated Qualified Code(s): F14.20 - Cocaine dependence, uncomplicated (9) Hypertension Current Visit: No Status: Chronic Qualifiers: Hypertension type: essential hypertension Qualified Code(s): I10 - Essential (primary) hypertension (10) Hypothyroidism Current Visit: No Status: Chronic Qualifiers: Hypothyroidism type: unspecified Qualified Code(s): E03.9 - Hypothyroidism , unspecified (11) MDD (major depressive disorder) Current Visit: No Status: Chronic Qualifiers: Major depression recurrence: unspecified whether recurrent Active/ Remission status: remission status unspecified Qualified Code(s): F32.9 - Major depressive disorder, single episode, unspecified (12) S/P angioplasty with stent Current Visit: No Status: Chronic Screened but not Admitted - Documentation of Visit Level of Care Recommended at this Time: ER Evaluation/Care Breathalyzer - Breathalyzer Breathalyzer: 0 Urine Drug Screen - Test Device Lot number: [id number] Expiration date: 01/17/21 - Control Is test valid?: Yes - Results Drug screen NEGATIVE: No Urine drug screen results: SHIRAZ-Cocaine, MTD-Methadone, BZO-Benzodiazepines Inpatient Rehab Admission - Rehab Decision to Admit Inpatient rehab admission?: No
--- NOTE | 2019-05-08 14:23 | PN ---
Teaching Attending Note Name of Resident: Regan Robert ATTENDING PHYSICIAN STATEMENT I saw and evaluated the patient. I reviewed the resident's note and discussed the case with the resident. I agree with the resident's findings and plan as documented. SUBJECTIVE:59 y.o. female pt requesting detox from etoh use x > 6 mo , starts drinking in the mornings , denies blackouts / seizures , + tremors , + falls while intoxicated , most recently 3d ago fell down stairs and hit left arm /left leg , c/o pain in the left hand , states she tried to open a door that was recently painted and had gotten stuck, and door hit her in the face , went to [facility] and had face XR done no frx . ETOH 1- 1.5 pints vodka/day , latest use this morning 1 beer. cocaine : 100 $ VIA inhalation , denies IVDU . tobacco : 2-3 cigs/day now, previously 1 ppd heroin : no longer using , IVDU in the past , previously on MMTP " on and off " PMHX : HTN, [place] s/p stent x 2 in 2019 ( on Plavix and ASA ) , HLD, hypothyroidism, anxiety, bipolar disorder, depression , hep C no tx , COPD OBJECTIVE: wnwd , moderate distress , CIWA = 12 , anxious , tremors HEENT : NC , + r maxilla ecchymosis , no deformity no tenderness. Ext : addi hands w/ ecchymosis , edema left >> R , left Vth MC pinpoint tenderness to palpation over distal 1/3 , LLE w/ edema and ecchymosis pretibially no deformity Neuro : AAO x 3 This report was requested by: Debbie Velez | Reference #: [id number] Others' Prescriptions Patient Name: Mary Summers Date: 1960 Address: [facility] [place] [address] Sex: Female Rx Written Rx Dispensed Drug Quantity Days Supply Prescriber Name 03/29/2019 03/29/2019 oxycodone-acetaminophen 5-325 mg tablet 9 3 Grace Sanchez 03/09/2019 03/09/2019 oxycodone-acetaminophen 5-325 mg tablet 15 5 Anastacio [facility] Veronica TAVAREZ 09/10/2018 09/10/2018 oxycodone-acetaminophen 5-325 mg tablet 12 3 [facility] Patient Name: Mary Lucas Date: 1960 Address: [address] [place] [address] [place] [address] Sex: Female Rx Written Rx Dispensed Drug Quantity Days Supply Prescriber Name 08/29/2018 08/30/2018 oxycodone-acetaminophen 5-325 mg tablet 12 3 Lonnie Hernandez ASSESSMENT AND PLAN: ALcohol dependence - Librium taper OUD - minimal recent use , states was given meds in ER for pain Pt to be transferred to ED for left hand XR r/o frx , return for detox when medically cleared - addendum 5:55 pm , pt returns from ER w/ left VTH acute MC frx, splinted and instructions to see orthopedics 05/09/19
[2019-05-08] MEDS ORDERED: MENTHOL/PHENOL 1 EACH UD MM PRN (17:52)
[2019-05-08] MEDS ORDERED: BISMUTH SUBSALICYLATE 524 MG/30 ML UD PO PRN (17:52)
[2019-05-08] MEDS ORDERED: MAGNESIUM HYDROX 2400MG/30ML ORAL SUSPENSION 30 ML CUP PO PRN (17:52)
[2019-05-08] MEDS ORDERED: hydrOXYzine PAMOATE 25 MG CAPSULE (FP) PO PRN (17:52)
[2019-05-08] MEDS ORDERED: METHOCARBAMOL 500 MG TABLET PO PRN (17:52)
[2019-05-08] MEDS ORDERED: IBUPROFEN 400 MG TABLET (FP) PO PRN (17:52)
[2019-05-08] MEDS ORDERED: ACETAMINOPHEN 325 MG TABLET (FP) PO PRN ×2 (17:52)
[2019-05-08] MEDS ORDERED: MAGNESIUM CITRATE 300 ML BOTTLE PO PRN (17:52)
[2019-05-08] MEDS: chlordiazePOXIDE HCL 25 MG CAPSULE PO PRN (18:40)
[2019-05-08] MEDS: ALBUTEROL SO4 8 GM HFA INHALER IH SCH ×2 (18:41→22:21)
[2019-05-08] MEDS: BUDESONIDE/FORMETEROL FUMARATE 160/4.5 mcg INHALER IH SCH (22:21)
[2019-05-08] MEDS: chlordiazePOXIDE HCL 25 MG CAPSULE PO SCH (22:22)
[2019-05-08] MEDS: MELATONIN 5 MG TABLETS PO PRN (22:22)
[2019-05-08] MEDS: THIAMINE HCL 100 MG TABLET (FP) PO SCH (22:22)
[2019-05-09] MEDS: chlordiazePOXIDE HCL 25 MG CAPSULE PO SCH ×4 (06:04→22:22)
[2019-05-09] MEDS: LEVOTHYROXINE NA 25 MCG TABLET (FP) PO SCH (06:04)
[2019-05-09] MEDS: ALBUTEROL SO4 8 GM HFA INHALER IH SCH ×6 (07:16→22:20)
--- NOTE | 2019-05-09 10:00 | PN ---
S CIWA - CIWA Score Nausea/Vomitin-Mild Nausea/No Vomiting Muscle Tremors: 2 Anxiety: 3 Agitation: 3 Paroxysmal Sweats: 2 Orientation: 0-Oriented Tacttile Disturbances: 0-None Auditory Disturbances: 0-None Visual Disturbances: 0-None Headache: 0-None Present CIWA-Ar Total Score: 11 S Progress Note (SOAP) Subjective: nausea sweats mild shakes interrupted sleep body aches Objective: 05/09/19 09:59 Vital Signs Temperature 97.3 F L 05/09/19 09:56 Pulse Rate 95 H 05/09/19 09:56 Respiratory Rate 18 05/09/19 09:56 Blood Pressure 141/73 05/09/19 09:56 O2 Sat by Pulse Oximetry (%) labs pending aaox3 ambulating no acute distress Assessment: 05/09/19 10:00 withdrawals Plan: continue detox increase fluids pending labs
[2019-05-09] MEDS: CLOPIDOGREL BISULFATE 75 MG TABLET (FP) PO SCH (10:05)
[2019-05-09] MEDS: LISINOPRIL 20 MG TABLET (FP) PO SCH (10:05)
[2019-05-09] MEDS: ATORVASTATIN CA 40 MG TABLET (FP) PO SCH (10:05)
[2019-05-09] MEDS: ASPIRIN COATED 81 MG TABLET.EC PO SCH (10:05)
[2019-05-09] MEDS: PRENATAL VITAMINS W/ FOLIC ACID TABLET (FP) PO SCH (10:05)
[2019-05-09] MEDS: BUDESONIDE/FORMETEROL FUMARATE 160/4.5 mcg INHALER IH SCH ×2 (10:06→22:18)
[2019-05-09 10:11] LABS: HEMATOCRIT 30.5 % (32.4-45.2); HEMOGLOBIN 9.7 GM/dL (10.7-15.3); MCH 25.4 pg (25.7-33.7); MCHC 31.9 g/dl (32.0-36.0); MEAN CELL VOLUME 79.7 fl (80-96); MEAN PLT VOLUME 9.5 fl (7.5-11.1); PLATELET COUNT 180 K/MM3 (134-434); RBC 3.82 M/mm3 (3.60-5.2); RDW 17.8 % (11.6-15.6); WHITE BLOOD COUNT 3.1 K/mm3 (4.0-10.0)
[2019-05-09 10:19] LABS: ALBUMIN 3.1 g/dl (3.4-5.0); BILIRUBIN,TOTAL 0.3 mg/dL (0.2-1); BLOOD UREA NITROGEN 19.4 mg/dL (7-18); CALCIUM 8.6 mg/dL (8.5-10.1); CREATININE 1.1 mg/dL (0.55-1.3); POTASSIUM 3.6 mmol/L (3.5-5.1); TOT PROT 5.8 g/dl (6.4-8.2)
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
[2019-05-09] MEDS: FERROUS SO4 325 MG TABLET (FP) PO SCH ×2 (11:22→17:42)
[2019-05-09] MEDS: chlordiazePOXIDE HCL 25 MG CAPSULE PO PRN ×2 (13:13→19:42)
[2019-05-09] MEDS: MAG HYDROX/AL HYDROX/SIMETH 30 ML UNIT-DOSE CUP PO PRN (14:59)
[2019-05-09] MEDS ORDERED: PANTOPRAZOLE 20 MG TABLET (FP) PO ONE (21:14)
[2019-05-09] MEDS ORDERED: PANTOPRAZOLE 40 MG TABLET (FP) PO ONE (21:15)
[2019-05-09] MEDS ORDERED: ACETAMINOPHEN 325 MG TABLET (FP) PO PRN (21:17)
[2019-05-09] MEDS: TOPIRAMATE 100 MG TABLET PO SCH (22:17)
[2019-05-09] MEDS: THIAMINE HCL 100 MG TABLET (FP) PO SCH (22:17)
[2019-05-09] MEDS: traZODone HCL 50 MG TABLET (FP) PO SCH (22:17)
--- NOTE | 2019-05-10 04:19 | PN ---
S Progress Note Note: Seen earlier this evening. C/o heart burn and requesting Pepcid, which she states was taking at home. Abd: S/NT. (L) hand w/ 4th and 5th fingers splinted w/ wrist immobilized. Fingers warm w/ cap refll < 3 sec. Denies tenderness. Seen in [facility] [place] ED on 05/08/19 and dx'd w/ left 5th metacarpal fracture. Plan: Patient instructed to keep splint dry. Patient encouraged to elevate arm. Ice pack to fingers q4h prn. Protonix 20 mg HS and the start daily Protonix 40 mg in am
[2019-05-10] MEDS: ALBUTEROL SO4 8 GM HFA INHALER IH SCH ×6 (04:20→22:24)
[2019-05-10] MEDS: MAG HYDROX/AL HYDROX/SIMETH 30 ML UNIT-DOSE CUP PO PRN ×2 (04:46→15:41)
[2019-05-10] MEDS: chlordiazePOXIDE HCL 25 MG CAPSULE PO SCH ×4 (05:37→22:22)
[2019-05-10] MEDS: FERROUS SO4 325 MG TABLET (FP) PO SCH ×2 (07:24→17:32)
[2019-05-10] MEDS: LEVOTHYROXINE NA 25 MCG TABLET (FP) PO SCH (07:53)
[2019-05-10] MEDS: ARIPiprazole 10 MG TABLET PO SCH (10:03)
[2019-05-10] MEDS: LISINOPRIL 20 MG TABLET (FP) PO SCH (10:03)
[2019-05-10] MEDS: ATORVASTATIN CA 40 MG TABLET (FP) PO SCH (10:03)
[2019-05-10] MEDS: CLOPIDOGREL BISULFATE 75 MG TABLET (FP) PO SCH (10:03)
[2019-05-10] MEDS: ASPIRIN COATED 81 MG TABLET.EC PO SCH (10:04)
[2019-05-10] MEDS: PANTOPRAZOLE 40 MG TABLET (FP) PO SCH (10:04)
[2019-05-10] MEDS: BUDESONIDE/FORMETEROL FUMARATE 160/4.5 mcg INHALER IH SCH ×2 (10:04→22:24)
[2019-05-10] MEDS: TOPIRAMATE 25 MG TABLET (FP) PO SCH ×2 (10:04→17:35)
[2019-05-10] MEDS: PRENATAL VITAMINS W/ FOLIC ACID TABLET (FP) PO SCH (10:04)
--- NOTE | 2019-05-10 12:20 | PN ---
S CIWA - CIWA Score Nausea/Vomitin-No Nausea/No Vomiting Muscle Tremors: 2 Anxiety: 3 Agitation: 0-Normal Activity Paroxysmal Sweats: 3 Orientation: 0-Oriented Tacttile Disturbances: 1-Very Mild Itch/Numbness Auditory Disturbances: 0-None Visual Disturbances: 0-None Headache: 1-Very Mild CIWA-Ar Total Score: 10 S Progress Note (SOAP) Subjective: c/o headache, sweats, and anxiety. Objective: 05/10/19 12:20 Vital Signs 05/10/19 05/10/19 06:00 09:47 Temperature 97.9 F 97.3 F L Pulse Rate 81 83 Respiratory 18 18 Rate Blood Pressure 133/61 139/74 Lab Results WBC 3.1 K/mm3 (4.0-10.0) L 05/09/19 07:00 RBC 3.82 M/mm3 (3.60-5.2) 05/09/19 07:00 Hgb 9.7 GM/dL (10.7-15.3) L 05/09/19 07:00 Hct 30.5 % (32.4-45.2) L 05/09/19 07:00 MCV 79.7 fl (80-96) L 05/09/19 07:00 MCHC 31.9 g/dl (32.0-36.0) L 05/09/19 07:00 RDW 17.8 % (11.6-15.6) H 05/09/19 07:00 Plt Count 180 K/MM3 (134-434) 05/09/19 07:00 Sodium 144 mmol/L (136-145) 05/09/19 07:00 Potassium 3.6 mmol/L (3.5-5.1) 05/09/19 07:00 Chloride 112 mmol/L (98-107) H 05/09/19 07:00 Carbon Dioxide 25 mmol/L (21-32) 05/09/19 07:00 Anion Gap 7 MMOL/L (8-16) L 05/09/19 07:00 BUN 19.4 mg/dL (7-18) H 05/09/19 07:00 Creatinine 1.1 mg/dL (0.55-1.3) 05/09/19 07:00 Random Glucose 140 mg/dL (74-106) H 05/09/19 07:00 Calcium 8.6 mg/dL (8.5-10.1) 05/09/19 07:00 Labs noted. Assessment: 05/10/19 12:20 AOX3, in no acute distress. Full ROM, ambulating in the unit. Withdrawal symptoms. Plan: continue detox.
[2019-05-10] MEDS: chlordiazePOXIDE HCL 25 MG CAPSULE PO PRN (15:41)
[2019-05-10] MEDS: THIAMINE HCL 100 MG TABLET (FP) PO SCH (22:22)
[2019-05-10] MEDS: TOPIRAMATE 100 MG TABLET PO SCH (22:23)
[2019-05-10] MEDS: MELATONIN 5 MG TABLETS PO PRN (22:23)
[2019-05-10] MEDS: traZODone HCL 50 MG TABLET (FP) PO SCH (22:23)
[2019-05-11] MEDS ORDERED: chlordiazePOXIDE HCL 10 MG CAPSULE PO PRN
[2019-05-11] MEDS: ALBUTEROL SO4 8 GM HFA INHALER IH SCH ×6 (04:13→22:11)
[2019-05-11] MEDS: chlordiazePOXIDE HCL 10 MG CAPSULE PO SCH ×4 (05:27→22:10)
[2019-05-11] MEDS: LEVOTHYROXINE NA 25 MCG TABLET (FP) PO SCH (07:17)
[2019-05-11] MEDS: FERROUS SO4 325 MG TABLET (FP) PO SCH ×2 (07:17→17:13)
[2019-05-11] MEDS: ASPIRIN COATED 81 MG TABLET.EC PO SCH (10:01)
[2019-05-11] MEDS: ARIPiprazole 10 MG TABLET PO SCH (10:01)
[2019-05-11] MEDS: ATORVASTATIN CA 40 MG TABLET (FP) PO SCH (10:01)
[2019-05-11] MEDS: CLOPIDOGREL BISULFATE 75 MG TABLET (FP) PO SCH (10:01)
[2019-05-11] MEDS: PANTOPRAZOLE 40 MG TABLET (FP) PO SCH (10:02)
[2019-05-11] MEDS: PRENATAL VITAMINS W/ FOLIC ACID TABLET (FP) PO SCH (10:02)
[2019-05-11] MEDS: TOPIRAMATE 25 MG TABLET (FP) PO SCH ×2 (10:02→17:13)
[2019-05-11] MEDS: LISINOPRIL 20 MG TABLET (FP) PO SCH (10:02)
[2019-05-11] MEDS: BUDESONIDE/FORMETEROL FUMARATE 160/4.5 mcg INHALER IH SCH ×2 (10:02→22:11)
--- NOTE | 2019-05-11 18:00 | PN ---
S CIWA - CIWA Score Nausea/Vomitin-No Nausea/No Vomiting Muscle Tremors: None Anxiety: 3 Agitation: 3 Paroxysmal Sweats: 2 Orientation: 0-Oriented Tacttile Disturbances: 0-None Auditory Disturbances: 0-None Visual Disturbances: 0-None Headache: 0-None Present CIWA-Ar Total Score: 8 BHS Progress Note (SOAP) Subjective: Patient stated she is feeling fine, request to leave tomorrow, agreed to adjust detox protocol Objective: 05/11/19 17:57 Last Vital Signs Temp Pulse Resp BP Pulse Ox 98.1 F 78 20 120/66 05/11/19 17:13 05/11/19 17:13 05/11/19 17:13 05/11/19 17:13 Laboratory Tests 05/09/19 05/09/19 05/09/19 07:00 07:00 07:00 WBC 3.1 L RBC 3.82 Hgb 9.7 L Hct 30.5 L MCV 79.7 L MCH 25.4 L MCHC 31.9 L RDW 17.8 H Plt Count 180 MPV 9.5 Sodium 144 Potassium 3.6 Chloride 112 H Carbon Dioxide 25 Anion Gap 7 L BUN 19.4 H Creatinine 1.1 Est GFR (CKD-EPI)AfAm 62.75 Est GFR (CKD-EPI)NonAf 54.14 Random Glucose 140 H Calcium 8.6 Total Bilirubin 0.3 AST 15 ALT 16 Alkaline Phosphatase 61 Total Protein 5.8 L Albumin 3.1 L RPR Titer Nonreactive Labs reviewed: anemia and hyperglycemia noted Assessment: 05/11/19 17:57 Withdrawal sxs Plan: Continue detox Encouraged PO water hydration Scheduled for discharge tomorrow as per patient's request Anemia: could be r/t substance use, continue iron supplement, follow up with PCP for management Hyperglycemia, denies DM: could be r/t withdrawal, patient instructed to follow up with PCP post discharge for all abnormal lab results
[2019-05-11] MEDS: traZODone HCL 50 MG TABLET (FP) PO SCH (22:10)
[2019-05-11] MEDS: TOPIRAMATE 100 MG TABLET PO SCH (22:10)
[2019-05-11] MEDS: THIAMINE HCL 100 MG TABLET (FP) PO SCH (22:10)
[2019-05-11] MEDS: MELATONIN 5 MG TABLETS PO PRN (22:11)
[2019-05-12] MEDS ORDERED: chlordiazePOXIDE HCL 10 MG CAPSULE PO SCH (05:00)
[2019-05-12] MEDS: LEVOTHYROXINE NA 25 MCG TABLET (FP) PO SCH (06:33)
[2019-05-12] MEDS: ALBUTEROL SO4 8 GM HFA INHALER IH SCH (06:36)
[2019-05-12 07:07] VITALS: BP 112/71; PULSE 71; TEMP 98.1
--- NOTE | 2019-05-12 12:11 | DS ---
[facility] Detox Discharge Summary Admission Date: 05/08/19 Discharge Date: 05/12/19 - History Present History: Alcohol Dependence, Cannabis Dependence, Opioid Dependence - Physical Exam Results Vital Signs: Vital Signs Temperature 98.1 F 05/12/19 06:00 Pulse Rate 71 05/12/19 06:00 Respiratory Rate 18 05/12/19 06:00 Blood Pressure 112/71 05/12/19 06:00 O2 Sat by Pulse Oximetry (%) Pertinent Admission Physical Exam Findings: pt arrived in withdrawals Laboratory Tests 05/09/19 05/09/19 05/09/19 07:00 07:00 07:00 WBC 3.1 L RBC 3.82 Hgb 9.7 L Hct 30.5 L MCV 79.7 L MCH 25.4 L MCHC 31.9 L RDW 17.8 H Plt Count 180 MPV 9.5 Sodium 144 Potassium 3.6 Chloride 112 H Carbon Dioxide 25 Anion Gap 7 L BUN 19.4 H Creatinine 1.1 Est GFR (CKD-EPI)AfAm 62.75 Est GFR (CKD-EPI)NonAf 54.14 Random Glucose 140 H Calcium 8.6 Total Bilirubin 0.3 AST 15 ALT 16 Alkaline Phosphatase 61 Total Protein 5.8 L Albumin 3.1 L RPR Titer Nonreactive pt is aaox3 ambulating no acute distress pt remains with brace wrap in kerlex for a fracture she had prior to coming to our detox facility. - Treatment Hospital Course: Detox Protocol Followed, Detoxed Safely, Responded well, Discharged Condition Good, Rehab Referral Accepted Patient has Accepted a Rehab Referral to: pt declined rehab; referral provided - Medication Discharge Medications: Ambulatory Orders Famotidine [Pepcid -] 40 mg PO DAILY 01/14/17 traZODone HCL [Trazodone HCl] 100 mg PO HS #30 tablet 01/15/17 Aripiprazole [Abilify] 10 mg PO DAILY 09/24/18 Topiramate 25 mg PO BID 09/24/18 Aspirin [Aspirin EC] 81 mg PO DAILY #30 tablet. 01/31/19 Atorvastatin Ca [Lipitor] 40 mg PO DAILY #30 tablet 01/31/19 Clopidogrel Bisulfate [Plavix -] 75 mg PO DAILY #30 tablet 01/31/19 Levothyroxine Sodium [Levoxyl] 25 mcg PO DAILY #30 tablet 01/31/19 Topiramate [Topamax -] 100 mg PO HS #30 tablet 01/31/19 Albuterol Sulfate Inhaler - [Ventolin HFA Inhaler -] 2 puff IH Q4H 03/31/19 Budesonide/Formeterol Fumarate [SYMBICORT 160/4.5mcg -] 2 puff IH BID 03/31/19 Lisinopril 20 mg PO DAILY 03/31/19 Metoprolol Succinate 50 mg PO DAILY 05/08/19 - Diagnosis (1) Alcohol dependence with uncomplicated withdrawal Status: Chronic (2) Anemia Status: Chronic Qualifiers: Anemia type: unspecified type Qualified Code(s): D64.9 - Anemia, unspecified (3) Drug-induced mood disorder Status: Acute (4) Fracture of fifth metacarpal bone Status: Acute Qualifiers: Encounter type: initial encounter Fracture type: closed Metacarpal location: unspecified portion of metacarpal Fracture alignment: displaced Laterality: right Qualified Code(s): S62.306A - Unspecified fracture of fifth metacarpal bone, right hand, initial encounter for closed fracture (5) Substance induced mood disorder Status: Acute (6) Substance-induced sleep disorder Status: Acute (7) Anxiety Status: Chronic (8) Bipolar disorder Status: Chronic Qualifiers: Active/Remission status: remission status unspecified Qualified Code(s): F31.9 - Bipolar disorder, unspecified (9) CAD (coronary artery disease) Status: Chronic Qualifiers: Coronary Disease-Associated Artery/Lesion type: unspecified vessel or lesion type [place] vs. transplanted heart: unspecified whether false pass or transplanted heart Associated angina: angina presence unspecified Qualified Code(s): I25.10 - Atherosclerotic heart disease of false pass coronary artery without angina pectoris (10) COPD (chronic obstructive pulmonary disease) Status: Chronic Qualifiers: COPD type: unspecified COPD Qualified Code(s): J44.9 - Chronic obstructive pulmonary disease, unspecified (11) Cannabis dependence Status: Chronic (12) Cocaine dependence Status: Chronic Qualifiers: Substance use status: uncomplicated Qualified Code(s): F14.20 - Cocaine dependence, uncomplicated (13) Hyperlipidemia Status: Chronic Qualifiers: Hyperlipidemia type: unspecified Qualified Code(s): E78.5 - Hyperlipidemia , unspecified (14) Hypertension Status: Chronic Qualifiers: Hypertension type: essential hypertension Qualified Code(s): I10 - Essential (primary) hypertension (15) Hypothyroidism Status: Chronic Qualifiers: Hypothyroidism type: unspecified Qualified Code(s): E03.9 - Hypothyroidism , unspecified (16) Insomnia Status: Chronic Qualifiers: Insomnia type: unspecified Qualified Code(s): G47.00 - Insomnia, unspecified (17) MDD (major depressive disorder) Status: Chronic Qualifiers: Major depression recurrence: unspecified whether recurrent Active/ Remission status: remission status unspecified Qualified Code(s): F32.9 - Major depressive disorder, single episode, unspecified (18) Nicotine dependence Status: Chronic Qualifiers: Nicotine product type: cigarettes Substance use status: uncomplicated Qualified Code(s): F17.210 - Nicotine dependence, cigarettes, uncomplicated (19) S/P angioplasty with stent Status: Chronic (20) Substance induced mood disorder Status: Chronic - AMA Did Patient Leave Against Medical Advice: No
[2019-05-13] MEDS ORDERED: chlordiazePOXIDE HCL 10 MG CAPSULE PO ONE (05:00)
== END 2019-05-12 08:31 | disposition home or self-care (01) | DRG 773 ==
LOC: YASAS 11:36 → Y6N 18:06
PROVIDERS: ADMIT Surgery; ATTEND Surgery
PROC: HZ2ZZZZ Detoxification Services for Substance Abuse Treatment (ICD-10-PCS; principal; 2019-05-08)
DX: F10.230 Alcohol dependence with withdrawal, uncomplicated (principal); F11.23 Opioid dependence with withdrawal; F14.20 Cocaine dependence, uncomplicated; F12.20 Cannabis dependence, uncomplicated; F17.210 Nicotine dependence, cigarettes, uncomplicated; F19.282 Other psychoactive substance dependence with psychoactive substance-induced sleep disorder; F19.24 Other psychoactive substance dependence with psychoactive substance-induced mood disorder; F33.9 Major depressive disorder, recurrent, unspecified; F41.9 Anxiety disorder, unspecified; F31.9 Bipolar disorder, unspecified; I25.10 Atherosclerotic heart disease of native coronary artery without angina pectoris; I10 Essential (primary) hypertension; Z95.5 Presence of coronary angioplasty implant and graft; I25.2 Old myocardial infarction; J44.9 Chronic obstructive pulmonary disease, unspecified; K21.9 Gastro-esophageal reflux disease without esophagitis; E78.5 Hyperlipidemia, unspecified; D64.9 Anemia, unspecified; E03.9 Hypothyroidism, unspecified; B18.2 Chronic viral hepatitis C; Z79.01 Long term (current) use of anticoagulants; Z79.82 Long term (current) use of aspirin; S62.306A Unspecified fracture of fifth metacarpal bone, right hand, initial encounter for closed fracture; X58.XXXA Exposure to other specified factors, initial encounter; Y93.89 Activity, other specified; Y92.89 Other specified places as the place of occurrence of the external cause; Y99.8 Other external cause status
CPT/HCPCS: 36415; 80053; 85027; 86593

== ENCOUNTER 2019-05-08 15:25 | Emergency (ER) | payer OTHER ==
--- NOTE | 2019-05-08 16:07 | PDOC ---
Rapid Medical Evaluation Time Seen by Provider: 05/08/19 16:03 Medical Evaluation: Allergies Allergy/AdvReac Type Severity Reaction Status Date / Time No Known Allergies Allergy Verified 05/08/19 13:23 05/08/19 16:03 Pt presents to the ER for evaluation of injuries from a fall that happened three days ago. She is complaining of L hand pain. Pt states she had a CT scan of her head at the time of the fall, but did not want the hand evaluated at that time. She is admitted at [facility] and cannot be admitted until her hand is evaluated Exam: swelling to the L lateral hand Orders: X-ray Pt to proceed to the ER for further evaluation Discharge Disposition - Diagnosis Hand pain, left - Referrals - Patient Instructions - Post Discharge Activity
[2019-05-08 16:17] VITALS: BP 109/73; PULSE 67; TEMP 97.8; BMI 33.8
[2019-05-08] MEDS ORDERED: chlordiazePOXIDE HCL 25 MG CAPSULE PO ONE (16:27)
--- NOTE | 2019-05-08 16:27 | PDOC ---
History of Present Illness - General Chief Complaint: Injury Stated Complaint: FALL Time Seen by Provider: 05/08/19 16:03 History Source: Patient - History of Present Illness Initial Comments: 05/08/19 17:33 Chief complaint: Hand injury Patient is a 59-year-old female with a history of VA, stents who fell a few days ago, was seen at another hospital, for facial trauma, head CTs and was fine and now fell again 2 days and injured left hand. Patient was evaluated at [facility] today for admission and is accepted but was sent here for evaluation of the hand injury. Patient denies any headache, dizziness or any issues related to the facial trauma. Patient has minimal pain to the left hand. GENERAL/CONSTITUTIONAL: No fever, weakness. dizziness HEAD, EYES, EARS, NOSE AND THROAT: No change in vision. No ear pain or discharge. No sore throat. CARDIOVASCULAR: No chest pain RESPIRATORY: No shortness of breath or cough GASTROINTESTINAL: No pain, nausea, vomiting, diarrhea or constipation GENITOURINARY: No dysuria MUSCULOSKELETAL: + left hand injury, No neck or back pain SKIN: No rash NEUROLOGIC: No headache, vertigo, loss of consciousness, or loss of sensation. GENERAL: The patient is awake, alert, and fully oriented, in no acute distress. HEAD:scattered ecchymosis, no deformity, otherwise normal with no signs of trauma. EYES: Pupils equal, round and reactive to light, sclera anicteric, conjunctiva clear. ENT: pharynx: no erythema, no exudate, uvula midline NECK: supple CHEST: clear, nontender, rr ABD: soft, nontender BACK: no tenderness or signs of injury EXTREMITIES: left hand with mild swelling and dorsal tenderness by fifth metacarpal, full range of motion, nv intact. rest of extremities, normal range of motion, no edema. NEUROLOGICAL: Normal speech, normal gait.Cranial nerves II through XII grossly intact, no gross focal abnormalities SKIN: Warm, Dry Past History - Past Medical History Allergies/Adverse Reactions: Allergies Allergy/AdvReac Type Severity Reaction Status Date / Time No Known Allergies Allergy Verified 05/08/19 13:23 Home Medications: Ambulatory Orders Famotidine [Pepcid -] 40 mg PO DAILY 01/14/17 traZODone HCL [Trazodone HCl] 100 mg PO HS #30 tablet 01/15/17 Aripiprazole [Abilify] 10 mg PO DAILY 09/24/18 Topiramate 25 mg PO BID 09/24/18 Aspirin [Aspirin EC] 81 mg PO DAILY #30 tablet. 01/31/19 Atorvastatin Ca [Lipitor] 40 mg PO DAILY #30 tablet 01/31/19 Clopidogrel Bisulfate [Plavix -] 75 mg PO DAILY #30 tablet 01/31/19 Levothyroxine Sodium [Levoxyl] 25 mcg PO DAILY #30 tablet 01/31/19 Topiramate [Topamax -] 100 mg PO HS #30 tablet 01/31/19 Albuterol Sulfate Inhaler - [Ventolin HFA Inhaler -] 2 puff IH Q4H 03/31/19 Budesonide/Formeterol Fumarate [SYMBICORT 160/4.5mcg -] 2 puff IH BID 03/31/19 Lisinopril 20 mg PO DAILY 03/31/19 Metoprolol Succinate 50 mg PO DAILY 05/08/19 Anemia: No Asthma: No Cancer: No Cardiac Disorders: (2 cardiac stent placed) CVA: No COPD: Yes CHF: No Dementia: No Diabetes: No GI Disorders: Yes (GERD) Disorders: No HTN: Yes Hypercholesterolemia: Yes Kidney Stones: No Liver Disease: No Seizures: No Thyroid Disease: No - Surgical History Abdominal Surgery: No Appendectomy: No Cardiac Surgery: Yes ( on 09/15/18 [facility]) Cholecystectomy: No Lung Surgery: No Neurologic Surgery: No Orthopedic Surgery: No - Reproductive History PID: Yes (2003) - Immunization History Immunization Up to Date: Yes - Suicide/Smoking/Psychosocial Hx Smoking History: Current every day smoker Have you smoked in the past 12 months: Yes Number of Cigarettes Smoked Daily: 10 Cigars Per Day: 0 Information on smoking cessation initiated: No 'Breaking Loose' booklet given: 05/08/19 Hx Alcohol Use: Yes Drug/Substance Use Hx: No Substance Use Type: Alcohol Hx Substance Use Treatment: Yes *Physical Exam - Vital Signs Last Vital Signs Temp Pulse Resp BP Pulse Ox 97.8 F 67 16 109/73 100 05/08/19 16:04 05/08/19 16:04 05/08/19 16:04 05/08/19 16:04 05/08/19 16:04 Procedures - Splinting Splint Location: Left: Hand Pre-Proc Neuro Vasc Exam: normal Hand-Made Type: orthoglass Splint Type: Yes: Ulnar (boxers) Post-Proc Neuro Vasc Exam: normal Tyrell Bandage: 3" Complications: No Medical Decision Making - Medical Decision Making 05/08/19 17:40 Patient with isolated left hand fracture, will get xray, pt has old facial trauma, asymptomatic and healing. xray left hand, shows fracture left 5th metacarpal fracture will splint, ambulance transfer back to [facility]. Discussed issues, findings, results, applicable medications and treatments and follow-up. All these were understood and all questions were answered *DC/Admit/Observation/Transfer Diagnosis at time of Disposition: Fracture of fifth metacarpal bone Qualifiers: Encounter type: initial encounter Fracture type: closed Metacarpal location: unspecified portion of metacarpal Fracture alignment: displaced Laterality: right Qualified Code(s): S62.306A - Unspecified fracture of fifth metacarpal bone, right hand, initial encounter for closed fracture - Discharge Dispostion Disposition: HOME Condition at time of disposition: Stable Decision to Admit order: No - Referrals Referrals: Flex Choudhary MD [Staff Physician] - - Patient Instructions Printed Discharge Instructions: DI for Boxer's Fracture Additional Instructions: Elevate, wear splint You can apply ice for 20 minutes every 2 hours for the next 2 days pain meds as ordered by doctor in [place] inpatient treatment Call the orthopedist tomorrow - Post Discharge Activity
[2019-05-08] MEDS ORDERED: chlordiazePOXIDE HCL 25 MG CAPSULE ONE (16:39)
[2019-05-09] MEDS ORDERED: ARIPiprazole 10 MG TABLET PO SCH (12:30)
[2019-05-09] MEDS ORDERED: TOPIRAMATE 25 MG TABLET (FP) PO SCH (16:00)
[2019-05-09] MEDS ORDERED: TOPIRAMATE 100 MG TABLET PO SCH (22:00)
[2019-05-09] MEDS ORDERED: traZODone HCL 100 MG TABLET (FP) PO SCH (22:00)
== END 2019-05-08 17:38 | disposition short-term general hospital (02) ==
LOC: JERFT 15:25
PROC: 2W3DX1Z Immobilization of Left Lower Arm using Splint (ICD-10-PCS; principal; 2019-05-08)
DX: S62.396A Other fracture of fifth metacarpal bone, right hand, initial encounter for closed fracture (principal); W19.XXXA Unspecified fall, initial encounter; Z91.81 History of falling; Y93.89 Activity, other specified; Y92.89 Other specified places as the place of occurrence of the external cause; Y99.8 Other external cause status; I25.10 Atherosclerotic heart disease of native coronary artery without angina pectoris; I10 Essential (primary) hypertension; Z95.5 Presence of coronary angioplasty implant and graft; I25.2 Old myocardial infarction; E78.00 Pure hypercholesterolemia, unspecified; K21.9 Gastro-esophageal reflux disease without esophagitis; F10.10 Alcohol abuse, uncomplicated; F17.210 Nicotine dependence, cigarettes, uncomplicated
CPT/HCPCS: 73110-TC-LT-FY; 73130-TC-LT-FY; 99281-25

== ENCOUNTER 2019-06-13 11:57 | Inpatient (IN) | payer OTHER ==
[2019-06-13 15:30] VITALS: BMI 32.9
--- NOTE | 2019-06-13 16:17 | HP ---
CIWA Score Nausea/Vomitin-Mild Nausea/No Vomiting Muscle Tremors: 4-Moderate,w/Arms Extend Anxiety: 4-Mod. Anxious/Guarded Agitation: 1-Slight > Activity Paroxysmal Sweats: No Perspiration Orientation: 0-Oriented Tacttile Disturbances: 0-None Auditory Disturbances: 0-None Visual Disturbances: 0-None Headache: 2-Mild CIWA-Ar Total Score: 12 - Admission Criteria OASAS Guidelines: Admission for Medically Managed Detox: Requires at least one of the followin. CIWA greater than 12 2. Seizures within the past 24 hours 3. Delirium tremens within the past 24 hours 4. Hallucinations within the past 24 hours 5. Acute intervention needed for co occurring medical disorder 6. Acute intervention needed for co occurring psychiatric disorder 7. Severe withdrawal that cannot be handled at a lower level of care (continued vomiting, continued diarrhea, abnormal vital signs) requiring intravenous medication and/or fluids 8. Admitting History and Physical - Admission Chief Complaint: etoh abuse History Source: Patient Limitations to Obtaining History: No Limitations - Past Medical History Cardiovascular: Yes: HTN, LA Pulmonary: Yes: COPD Hepatobiliary: Yes: Hepatitis C Psych: Yes: Anxiety, Bipolar, Depression - Past Surgical History Past Surgical History: Yes: Stent (x2) - Smoking History Smoking history: Current every day smoker Have you smoked in the past 12 months: Yes Aproximately how many cigarettes per day: 10 - Alcohol/Substance Use Hx Alcohol Use: Yes Admission [facility] Allergies/Adverse Reactions: Allergies Allergy/AdvReac Type Severity Reaction Status Date / Time No Known Allergies Allergy Verified 06/13/19 15:21 History of Present Illness: 59 y.o. F HTN, depression, anxiety, PTSD, bipolar d/o, sciatica, [place] s/p 2 cardiac stents, COPD, hepatitis C (pt states she is undetectable), L wrist fracture about a month ago. She is not interested in rehab but plans on doing an outpatient program once she completes detox. EtOH: daily use, 1 pint vodka daily. Last drink 1 beer 9am this morning. Has been drinking x 5-6 years. Never passed out from drinking but endorses a fall 3 days ago, fell on her left arm and leg-- she is not in pain but has ecchymoses present on LUE & LLE. Never had seizures d/t not drinking. Crack cocaine: daily x few weeks. Uses $50-$100/day, about 5 bags. Last used 2 days ago. Used to inject years ago but now only smokes. Has been using since age 41. Benzos: denies taking bens although states that "thats probably what the crack is cut with" Marijuana: every few weeks, not often Cigarettes: 3 cigarettes per day since age 15 PSH: 2 stent placements early 2018 Social hx: lives in [facility] [place] in shared apartment with a roommate. Has good family support system. Not currently working, on SSI. All: NKDA/ NKFA Meds: plavix, asa, lisinopril, metoprolol, topramax, abilify, trazodone, symbicort Exam Limitations: No Limitations - Ebola screening Have you traveled outside of the country in the last 21 days: No (N) Have you had contact with anyone from an Ebola affected area: No Do you have a fever: No Patient History - Patient Medical History Hx Anemia: No Hx Asthma: No Hx Chronic Obstructive Pulmonary Disease (COPD): Yes Hx Cancer: No Hx Cardiac Disorders: (2 cardiac stent placed) Hx Congestive Heart Failure: No Hx Hypertension: Yes Hx Hypercholesterolemia: Yes Hx Pacemaker: No HX Cerebrovascular Accident: No Hx Seizures: No Hx Dementia: No Hx Diabetes: No Hx Gastrointestinal Disorders: Yes (GERD) Hx Liver Disease: No Hx Genitourinary Disorders: No Hx Sexually Transmitted Disorders: No Hx Renal Disease (ESRD): No Hx Thyroid Disease: No Hx Human Immunodeficiency Virus (HIV): No (last 2017 negative) Hx Hepatitis C: No Hx Depression: Yes Hx Suicide Attempt: No Hx Bipolar Disorder: Yes (on meds) Hx Schizophrenia: No - Patient Surgical History Past Surgical History: Yes Hx Neurologic Surgery: No Hx Cataract Extraction: No Hx Cardiac Surgery: Yes ( on 09/15/18 [facility]) Hx Lung Surgery: No Hx Breast Surgery: No Hx Breast Biopsy: No Hx Abdominal Surgery: No Hx Appendectomy: No Hx Cholecystectomy: No Hx Genitourinary Surgery: No Hx Section: No Hx Orthopedic Surgery: No Anesthesia Reaction: No - Smoking Cessation Smoking history: Current every day smoker Have you smoked in the past 12 months: Yes Aproximately how many cigarettes per day: 10 Cigars Per Day: 0 Hx Chewing Tobacco Use: No Initiated information on smoking cessation: Yes 'Breaking Loose' booklet given: 06/13/19 - Substances abused Alcohol Substance route: Oral Frequency: Daily Amount used: 1 pint of vodka Age of first use: 23 Date of last use: 06/13/19 Marijuana/Hashish Substance route: Smoking Frequency: 1-3 times last 30 days Amount used: $10 Age of first use: 18 Date of last use: 06/12/19 Crack Substance route: Smoking Frequency: Daily Amount used: $100/day Age of first use: 41 Date of last use: 06/11/19 Other Other (specify): Percocets Substance route: Oral Frequency: Daily Amount used: 8-10 pills Age of first use: 59 Date of last use: 03/30/19 Admission Physical Exam [facility] - Vital Signs Vital Signs: Vital Signs - 24 hr 06/13/19 15:21 Temperature 98.7 F Pulse Rate 64 Respiratory 16 Rate Blood Pressure 151/82 - Physical General Appearance: Yes: Within Normal Limits HEENTM: Yes: Normal ENT Inspection, Normocephalic, RODERICK Respiratory: Yes: Lungs Clear, Normal Breath Sounds Neck: Yes: Within Normal Limits Cardiology: Yes: Regular Rhythm, Regular Rate, S1, S2 Abdominal: Yes: Normal Bowel Sounds, Non Tender, Soft Back: Yes: Within Normal Limits Musculoskeletal: Yes: Within Normal Limits Extremities: Yes: Within Normal Limits Neurological: Yes: carpenter general II-XII NML intact, Fully Oriented, Alert Integumentary: Yes: Within Normal Limits, Other (ecchymoses LUE, LLE) Lymphatic: Yes: Within Normal Limits - Diagnostic (1) Alcohol dependence with uncomplicated withdrawal Current Visit: No Status: Chronic (2) Anxiety Current Visit: No Status: Chronic Cleared for Admission [facility] - Detox or Rehab [facility] Level of Care: Medically Supervised Detox Regimen/Protocol: Librium Breathalyzer - Breathalyzer Breathalyzer: 0 Urine Drug Screen - Test Device Lot number: [id number] Expiration date: 01/17/21 - Control Is test valid?: Yes - Results Drug screen NEGATIVE: No Urine drug screen results: THC-Marijuana, SHIRAZ-Cocaine, BZO-Benzodiazepines Inpatient Rehab Admission - Rehab Decision to Admit Inpatient rehab admission?: No
[2019-06-13] MEDS ORDERED: IBUPROFEN 400 MG TABLET (FP) PO PRN (16:52)
[2019-06-13] MEDS ORDERED: MAGNESIUM HYDROX 2400MG/30ML ORAL SUSPENSION 30 ML CUP PO PRN (16:52)
[2019-06-13] MEDS ORDERED: MAGNESIUM CITRATE 300 ML BOTTLE PO PRN (16:52)
[2019-06-13] MEDS ORDERED: BISMUTH SUBSALICYLATE 524 MG/30 ML UD PO PRN (16:52)
[2019-06-13] MEDS ORDERED: MENTHOL/PHENOL 1 EACH UD MM PRN (16:52)
[2019-06-13] MEDS ORDERED: ACETAMINOPHEN 325 MG TABLET (FP) PO PRN ×2 (16:52)
--- NOTE | 2019-06-13 16:57 | PN ---
Teaching Attending Note Name of Resident: Giulia Cooper ATTENDING PHYSICIAN STATEMENT I saw and evaluated the patient. I reviewed the resident's note and discussed the case with the resident. I agree with the resident's findings and plan as documented. SUBJECTIVE: 59 y.o. female pt requesting detox from etoh use , relapsed 2 weeks after leaving this facility Apr 2019 , reports she did not f/up w/ orthopedics for left vth MC frx , and kept splint on x 3 weeks. Pt states she starts drinking in the mornings , denies blackouts / seizures , reports tremors and falls while intoxicated , most recently 2 d ago fell getting out of the bathtub and hit left elbow . ETOH 1-1.5 pints vodka/day , latest use this morning 1 beer. cocaine : 100 $ VIA inhalation , denies IVDU . tobacco : 2-3 cigs/day now, previously 1 ppd heroin : no longer using , IVDU in the past , previously on MMTP " on and off " PMHX : HTN, [place] s/p stent x 2 in 2019 ( on Plavix and ASA ) , HLD, hypothyroidism, anxiety, bipolar disorder, depression , hep C no tx , COPD OBJECTIVE: wnwd , multiple ecchymoses left elbow , left forearm , bilateral lower extremities , no tenderness to palpation , no deformities . Vital Signs - 24 hr 06/13/19 15:21 Temperature 98.7 F Pulse Rate 64 Respiratory 16 Rate Blood Pressure 151/82 ASSESSMENT AND PLAN: Alcohol dependence - Librium detox
[2019-06-13] MEDS: chlordiazePOXIDE HCL 25 MG CAPSULE PO PRN (17:37)
[2019-06-13] MEDS: METHOCARBAMOL 500 MG TABLET PO PRN (18:19)
[2019-06-13] MEDS: hydrOXYzine PAMOATE 25 MG CAPSULE (FP) PO PRN (18:19)
[2019-06-13] MEDS: chlordiazePOXIDE HCL 25 MG CAPSULE PO SCH (22:29)
[2019-06-13] MEDS: THIAMINE HCL 100 MG TABLET (FP) PO SCH (22:30)
[2019-06-13] MEDS: MELATONIN 5 MG TABLETS PO PRN (22:30)
[2019-06-14] MEDS: chlordiazePOXIDE HCL 25 MG CAPSULE PO SCH ×4 (05:21→22:22)
[2019-06-14] MEDS: PRENATAL VITAMINS W/ FOLIC ACID TABLET (FP) PO SCH (10:59)
[2019-06-14 12:27] LABS: HEMOGLOBIN 9.7 GM/dL (10.7-15.3); MCH 25.4 pg (25.7-33.7); MCHC 31.4 g/dl (32.0-36.0); PLATELET COUNT 220 K/MM3 (134-434); RBC 3.83 M/mm3 (3.60-5.2); RDW 18.2 % (11.6-15.6)
[2019-06-14 12:34] LABS: ALBUMIN 3.2 g/dl (3.4-5.0); BILIRUBIN,TOTAL 0.3 mg/dL (0.2-1); BLOOD UREA NITROGEN 20.8 mg/dL (7-18); CALCIUM 8.9 mg/dL (8.5-10.1); CREATININE 0.9 mg/dL (0.55-1.3); POTASSIUM 4.3 mmol/L (3.5-5.1); TOT PROT 5.8 g/dl (6.4-8.2)
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
[2019-06-14] MEDS ORDERED: ARIPiprazole 10 MG TABLET PO ONE (13:16)
--- NOTE | 2019-06-14 13:38 | PN ---
S CIWA - CIWA Score Nausea/Vomitin-No Nausea/No Vomiting Muscle Tremors: 2 Anxiety: 2 Agitation: 2 Paroxysmal Sweats: 3 Orientation: 0-Oriented Tacttile Disturbances: 0-None Auditory Disturbances: 0-None Visual Disturbances: 0-None Headache: 1-Very Mild CIWA-Ar Total Score: 10 S Progress Note (SOAP) Subjective: c/o anxiety, shakes, sweats, and headache. Objective: 06/14/19 13:37 Vital Signs 06/14/19 06/14/19 06:53 08:00 Temperature 98.2 F 97.9 F Pulse Rate 80 77 Respiratory 18 20 Rate Blood Pressure 139/67 128/73 Lab Results WBC 4.0 K/mm3 (4.0-10.0) 06/14/19 07:55 RBC 3.83 M/mm3 (3.60-5.2) 06/14/19 07:55 Hgb 9.7 GM/dL (10.7-15.3) L 06/14/19 07:55 Hct 31.0 % (32.4-45.2) L 06/14/19 07:55 MCV 81.0 fl (80-96) 06/14/19 07:55 MCHC 31.4 g/dl (32.0-36.0) L 06/14/19 07:55 RDW 18.2 % (11.6-15.6) H 06/14/19 07:55 Plt Count 220 K/MM3 (134-434) D 06/14/19 07:55 Sodium 144 mmol/L (136-145) 06/14/19 07:55 Potassium 4.3 mmol/L (3.5-5.1) 06/14/19 07:55 Chloride 112 mmol/L (98-107) H 06/14/19 07:55 Carbon Dioxide 24 mmol/L (21-32) 06/14/19 07:55 Anion Gap 8 MMOL/L (8-16) 06/14/19 07:55 BUN 20.8 mg/dL (7-18) H 06/14/19 07:55 Creatinine 0.9 mg/dL (0.55-1.3) 06/14/19 07:55 Random Glucose 103 mg/dL (74-106) 06/14/19 07:55 Calcium 8.9 mg/dL (8.5-10.1) 06/14/19 07:55 Labs noted. Assessment: 06/14/19 13:37 AOX3, in no acute respiratory distress. Full ROM, ambulating in the unit. withdrawal symptoms. Plan: continue detox.
[2019-06-14] MEDS: TOPIRAMATE 25 MG TABLET (FP) PO SCH (15:16)
[2019-06-14] MEDS: CLOPIDOGREL BISULFATE 75 MG TABLET (FP) PO SCH (17:28)
[2019-06-14] MEDS: ASPIRIN 81 MG CHEWABLE TABLETS PO SCH (17:28)
[2019-06-14] MEDS ORDERED: traZODone HCL 100 MG TABLET (FP) PO SCH (22:00)
[2019-06-14] MEDS: BUDESONIDE/FORMETEROL FUMARATE 160/4.5 mcg INHALER IH SCH (22:21)
[2019-06-14] MEDS: THIAMINE HCL 100 MG TABLET (FP) PO SCH (22:22)
[2019-06-14] MEDS: TOPIRAMATE 100 MG TABLET PO SCH (22:22)
[2019-06-15] MEDS: METHOCARBAMOL 500 MG TABLET PO PRN (03:19)
[2019-06-15] MEDS: hydrOXYzine PAMOATE 25 MG CAPSULE (FP) PO PRN (03:20)
[2019-06-15] MEDS: chlordiazePOXIDE HCL 25 MG CAPSULE PO SCH ×4 (05:03→23:07)
[2019-06-15] MEDS: BUDESONIDE/FORMETEROL FUMARATE 160/4.5 mcg INHALER IH SCH ×2 (10:52→23:07)
[2019-06-15] MEDS: PRENATAL VITAMINS W/ FOLIC ACID TABLET (FP) PO SCH (10:53)
[2019-06-15] MEDS: ASPIRIN 81 MG CHEWABLE TABLETS PO SCH (10:53)
[2019-06-15] MEDS: LISINOPRIL 20 MG TABLET (FP) PO SCH (10:53)
[2019-06-15] MEDS: CLOPIDOGREL BISULFATE 75 MG TABLET (FP) PO SCH (10:53)
[2019-06-15] MEDS: ARIPiprazole 10 MG TABLET PO SCH (10:53)
[2019-06-15] MEDS: chlordiazePOXIDE HCL 25 MG CAPSULE PO PRN (13:17)
[2019-06-15] MEDS: TOPIRAMATE 25 MG TABLET (FP) PO SCH ×2 (13:51→19:40)
--- NOTE | 2019-06-15 16:38 | PN ---
[facility] CIWA - CIWA Score Nausea/Vomitin-Mild Nausea/No Vomiting Muscle Tremors: 2 Anxiety: 2 Agitation: 2 Paroxysmal Sweats: 2 Orientation: 0-Oriented Tacttile Disturbances: 0-None Auditory Disturbances: 0-None Visual Disturbances: 0-None Headache: 0-None Present CIWA-Ar Total Score: 9 S Progress Note (SOAP) Subjective: Nausea, tremor, diarrhea, interrupted sleep Objective: 06/15/19 16:36 Last Vital Signs Temp Pulse Resp BP Pulse Ox 98.4 F 81 16 154/79 06/15/19 14:00 06/15/19 14:00 06/15/19 14:00 06/15/19 14:00 Elevated b/p: has htn (on med) Laboratory Tests 06/14/19 06/14/19 06/14/19 07:55 07:55 07:55 WBC 4.0 RBC 3.83 Hgb 9.7 L Hct 31.0 L MCV 81.0 MCH 25.4 L MCHC 31.4 L RDW 18.2 H Plt Count 220 D MPV 9.0 Sodium 144 Potassium 4.3 Chloride 112 H Carbon Dioxide 24 Anion Gap 8 BUN 20.8 H Creatinine 0.9 Est GFR (CKD-EPI)AfAm 79.98 Est GFR (CKD-EPI)NonAf 69.01 Random Glucose 103 Calcium 8.9 Total Bilirubin 0.3 AST 15 ALT 14 Alkaline Phosphatase 61 Total Protein 5.8 L Albumin 3.2 L RPR Titer Nonreactive Labs reviewed: bun 20.8, anemia noted Assessment: 06/15/19 16:37 Withdrawal sxs Noted with anemia and azotemia Plan: Continue detox HTN: continue lisinopril and metoprolol, monitor b/p Anemia: most likely due to alcoholism, start ferrous sulfate 325mg PO bid and colace 100mg bid to prevent constipation, send iron studies, follow up with PCP for management Azotemia: encouraged PO water intake
[2019-06-15] MEDS: MAG HYDROX/AL HYDROX/SIMETH 30 ML UNIT-DOSE CUP PO PRN ×2 (17:00→23:08)
[2019-06-15] MEDS: FERROUS SO4 325 MG TABLET (FP) PO SCH (23:06)
[2019-06-15] MEDS: DOCUSATE SODIUM 100 MG CAPSULE (FP) PO SCH (23:07)
[2019-06-15] MEDS: THIAMINE HCL 100 MG TABLET (FP) PO SCH (23:07)
[2019-06-15] MEDS: TOPIRAMATE 100 MG TABLET PO SCH (23:07)
[2019-06-15] MEDS: MELATONIN 5 MG TABLETS PO PRN (23:09)
[2019-06-16] MEDS ORDERED: chlordiazePOXIDE HCL 10 MG CAPSULE PO PRN
[2019-06-16] MEDS: MAG HYDROX/AL HYDROX/SIMETH 30 ML UNIT-DOSE CUP PO PRN (03:31)
[2019-06-16] MEDS: chlordiazePOXIDE HCL 10 MG CAPSULE PO SCH ×4 (05:34→22:49)
[2019-06-16] MEDS: hydrOXYzine PAMOATE 25 MG CAPSULE (FP) PO PRN ×3 (08:44→22:24)
[2019-06-16] MEDS: ASPIRIN 81 MG CHEWABLE TABLETS PO SCH (11:15)
[2019-06-16] MEDS: ARIPiprazole 10 MG TABLET PO SCH (11:15)
[2019-06-16] MEDS: DOCUSATE SODIUM 100 MG CAPSULE (FP) PO SCH ×2 (11:15→22:23)
[2019-06-16] MEDS: FERROUS SO4 325 MG TABLET (FP) PO SCH ×2 (11:15→22:23)
[2019-06-16] MEDS: TOPIRAMATE 25 MG TABLET (FP) PO SCH ×2 (11:15→15:11)
[2019-06-16] MEDS: PRENATAL VITAMINS W/ FOLIC ACID TABLET (FP) PO SCH (11:16)
[2019-06-16] MEDS: LISINOPRIL 20 MG TABLET (FP) PO SCH (11:16)
[2019-06-16] MEDS: BUDESONIDE/FORMETEROL FUMARATE 160/4.5 mcg INHALER IH SCH ×2 (11:16→22:23)
[2019-06-16] MEDS: CLOPIDOGREL BISULFATE 75 MG TABLET (FP) PO SCH (11:16)
--- NOTE | 2019-06-16 13:08 | PN ---
S CIWA - CIWA Score Nausea/Vomitin-Mild Nausea/No Vomiting Muscle Tremors: None Anxiety: 4-Mod. Anxious/Guarded Agitation: 2 Paroxysmal Sweats: No Perspiration Orientation: 0-Oriented Tacttile Disturbances: 0-None Auditory Disturbances: 0-None Visual Disturbances: 0-None Headache: 0-None Present CIWA-Ar Total Score: 7 BHS Progress Note (SOAP) Subjective: PATIENT ON ETOH DETOX REGIMEN FOR ETOH DEPENDENCE. ROS: C/O ACID REFLUX WITH MILD NAUSEA, ANXIOUS/GUARDED AND RESTLESSNESS Objective: 06/16/19 13:05 Vital Signs Temperature 96.4 F L 06/16/19 09:54 Pulse Rate 79 06/16/19 09:54 Respiratory Rate 18 06/16/19 09:54 Blood Pressure 108/62 06/16/19 09:54 O2 Sat by Pulse Oximetry (%) Laboratory Tests 06/14/19 06/14/19 06/14/19 07:55 07:55 07:55 WBC 4.0 RBC 3.83 Hgb 9.7 L Hct 31.0 L MCV 81.0 MCH 25.4 L MCHC 31.4 L RDW 18.2 H Plt Count 220 D MPV 9.0 Sodium 144 Potassium 4.3 Chloride 112 H Carbon Dioxide 24 Anion Gap 8 BUN 20.8 H Creatinine 0.9 Est GFR (CKD-EPI)AfAm 79.98 Est GFR (CKD-EPI)NonAf 69.01 Random Glucose 103 Calcium 8.9 Iron TIBC Iron Saturation Unsaturated IBC Ferritin Total Bilirubin 0.3 AST 15 ALT 14 Alkaline Phosphatase 61 Total Protein 5.8 L Albumin 3.2 L Vitamin B12 Serum Folate RPR Titer Nonreactive 06/16/19 08:20 WBC RBC Hgb Hct MCV MCH MCHC RDW Plt Count MPV Sodium Potassium Chloride Carbon Dioxide Anion Gap BUN Creatinine Est GFR (CKD-EPI)AfAm Est GFR (CKD-EPI)NonAf Random Glucose Calcium Iron 27 L TIBC 383 Iron Saturation 7 L Unsaturated IBC 356 H Ferritin 34.9 Total Bilirubin AST ALT Alkaline Phosphatase Total Protein Albumin Vitamin B12 237 Serum Folate 3 L RPR Titer PE: ALERT AND ORIENTED X 3 SKIN WARM AND DRY +PERRLA, EOMS INTACT BL NECK SUPPLE, NO JVD EXT FULL ROM, NO TREMORS AMB AD YULIANA ANXIOUS/GUARDED PACING IN ROOM AND LEONARDO Assessment: 06/16/19 13:07 ETOH WITHDRAWAL SX ANEMIA GERD Plan: CONTINUE DETOX ADD PEPCID 20MG PO BID-PATIENT TAKES MED AT HOME CONTINUE FE SUPPLEMENT ORDERED MONITOR CLINICALLY
[2019-06-16] MEDS: FAMOTIDINE 20 MG TABLET PO SCH ×2 (15:11→22:23)
[2019-06-16] MEDS: METHOCARBAMOL 500 MG TABLET PO PRN (19:33)
[2019-06-16] MEDS: THIAMINE HCL 100 MG TABLET (FP) PO SCH (22:23)
[2019-06-16] MEDS: MELATONIN 5 MG TABLETS PO PRN (22:23)
[2019-06-16] MEDS: TOPIRAMATE 100 MG TABLET PO SCH (22:23)
[2019-06-17] MEDS: METHOCARBAMOL 500 MG TABLET PO PRN ×2 (01:19→14:11)
[2019-06-17] MEDS: chlordiazePOXIDE HCL 10 MG CAPSULE PO SCH ×2 (05:53→16:46)
[2019-06-17] MEDS: FAMOTIDINE 20 MG TABLET PO SCH ×2 (11:05→22:29)
[2019-06-17] MEDS: LISINOPRIL 20 MG TABLET (FP) PO SCH (11:05)
[2019-06-17] MEDS: CLOPIDOGREL BISULFATE 75 MG TABLET (FP) PO SCH (11:05)
[2019-06-17] MEDS: DOCUSATE SODIUM 100 MG CAPSULE (FP) PO SCH ×2 (11:06→22:29)
[2019-06-17] MEDS: ARIPiprazole 10 MG TABLET PO SCH (11:06)
[2019-06-17] MEDS: BUDESONIDE/FORMETEROL FUMARATE 160/4.5 mcg INHALER IH SCH ×2 (11:06→22:30)
[2019-06-17] MEDS: ASPIRIN 81 MG CHEWABLE TABLETS PO SCH (11:06)
[2019-06-17] MEDS: PRENATAL VITAMINS W/ FOLIC ACID TABLET (FP) PO SCH (11:06)
[2019-06-17] MEDS: TOPIRAMATE 25 MG TABLET (FP) PO SCH ×2 (11:06→14:03)
[2019-06-17] MEDS: FERROUS SO4 325 MG TABLET (FP) PO SCH ×2 (11:06→22:28)
--- NOTE | 2019-06-17 12:26 | PN ---
S CIWA - CIWA Score Nausea/Vomitin-No Nausea/No Vomiting Muscle Tremors: 2 Anxiety: 1-Mildly Anxious Agitation: 0-Normal Activity Paroxysmal Sweats: No Perspiration Orientation: 0-Oriented Tacttile Disturbances: 0-None Auditory Disturbances: 0-None Visual Disturbances: 0-None Headache: 0-None Present CIWA-Ar Total Score: 3 BHS Progress Note (SOAP) Subjective: sweats little anxiety Objective: 06/17/19 12:25 Vital Signs Temperature 97.7 F 06/17/19 09:50 Pulse Rate 71 06/17/19 09:50 Respiratory Rate 18 06/17/19 09:50 Blood Pressure 121/69 06/17/19 09:50 O2 Sat by Pulse Oximetry (%) aaox3 ambulating no acute distress Assessment: 06/17/19 12:25 mild withdrawals Plan: continue detox d/c in am
[2019-06-17] MEDS: hydrOXYzine PAMOATE 25 MG CAPSULE (FP) PO PRN (16:46)
[2019-06-17] MEDS: MELATONIN 5 MG TABLETS PO PRN (22:28)
[2019-06-17] MEDS: THIAMINE HCL 100 MG TABLET (FP) PO SCH (22:29)
[2019-06-17] MEDS: TOPIRAMATE 100 MG TABLET PO SCH (22:29)
[2019-06-18] MEDS: METHOCARBAMOL 500 MG TABLET PO PRN (01:41)
[2019-06-18] MEDS: hydrOXYzine PAMOATE 25 MG CAPSULE (FP) PO PRN (01:41)
[2019-06-18] MEDS ORDERED: chlordiazePOXIDE HCL 10 MG CAPSULE PO ONE (05:00)
[2019-06-18 05:57] VITALS: BP 100/50; PULSE 69; TEMP 96.1
--- NOTE | 2019-06-18 09:08 | DS ---
[facility] Detox Discharge Summary Admission Date: 06/13/19 Discharge Date: 06/18/19 - History Present History: Alcohol Dependence, Cannabis Dependence, Cocaine Dependence - Physical Exam Results Vital Signs: Vital Signs Temperature 96.1 F L 06/18/19 05:57 Pulse Rate 69 06/18/19 05:57 Respiratory Rate 18 06/18/19 05:57 Blood Pressure 100/50 L 06/18/19 05:57 O2 Sat by Pulse Oximetry (%) Pertinent Admission Physical Exam Findings: pt arrived in withdrawals Vital Signs Temperature 96.1 F L 06/18/19 05:57 Pulse Rate 69 06/18/19 05:57 Respiratory Rate 18 06/18/19 05:57 Blood Pressure 100/50 L 06/18/19 05:57 O2 Sat by Pulse Oximetry (%) Laboratory Tests 06/14/19 06/14/19 06/14/19 07:55 07:55 07:55 WBC 4.0 RBC 3.83 Hgb 9.7 L Hct 31.0 L MCV 81.0 MCH 25.4 L MCHC 31.4 L RDW 18.2 H Plt Count 220 D MPV 9.0 Sodium 144 Potassium 4.3 Chloride 112 H Carbon Dioxide 24 Anion Gap 8 BUN 20.8 H Creatinine 0.9 Est GFR (CKD-EPI)AfAm 79.98 Est GFR (CKD-EPI)NonAf 69.01 Random Glucose 103 Calcium 8.9 Iron TIBC Iron Saturation Unsaturated IBC Ferritin Total Bilirubin 0.3 AST 15 ALT 14 Alkaline Phosphatase 61 Total Protein 5.8 L Albumin 3.2 L Vitamin B12 Serum Folate RPR Titer Nonreactive 06/16/19 08:20 WBC RBC Hgb Hct MCV MCH MCHC RDW Plt Count MPV Sodium Potassium Chloride Carbon Dioxide Anion Gap BUN Creatinine Est GFR (CKD-EPI)AfAm Est GFR (CKD-EPI)NonAf Random Glucose Calcium Iron 27 L TIBC 383 Iron Saturation 7 L Unsaturated IBC 356 H Ferritin 34.9 Total Bilirubin AST ALT Alkaline Phosphatase Total Protein Albumin Vitamin B12 237 Serum Folate 3 L RPR Titer today pt is aaox3 ambulating no acute distress no s/s of withdrawals - Treatment Hospital Course: Detox Protocol Followed, Detoxed Safely, Responded well, Discharged Condition Good, Rehab Referral Accepted Patient has Accepted a Rehab Referral to: pt declined rehab; referral provided - Medication Discharge Medications: Ambulatory Orders Famotidine [Pepcid -] 40 mg PO DAILY 01/14/17 traZODone HCL [Trazodone HCl] 100 mg PO HS #30 tablet 01/15/17 Aripiprazole [Abilify] 10 mg PO DAILY 09/24/18 Topiramate 25 mg PO BID 09/24/18 Aspirin [Aspirin EC] 81 mg PO DAILY #30 tablet. 01/31/19 Clopidogrel Bisulfate [Plavix -] 75 mg PO DAILY #30 tablet 01/31/19 Levothyroxine Sodium [Levoxyl] 25 mcg PO DAILY #30 tablet 01/31/19 Topiramate [Topamax -] 100 mg PO HS #30 tablet 01/31/19 Albuterol Sulfate Inhaler - [Ventolin HFA Inhaler -] 2 puff IH Q4H PRN 03/31/19 Budesonide/Formeterol Fumarate [SYMBICORT 160/4.5mcg -] 2 puff IH BID 03/31/19 Lisinopril 20 mg PO DAILY 03/31/19 Metoprolol Succinate 50 mg PO DAILY 05/08/19 - Diagnosis (1) Alcohol dependence with uncomplicated withdrawal Current Visit: Yes Status: Chronic (2) Bipolar disorder Current Visit: Yes Status: Chronic Qualifiers: Active/Remission status: remission status unspecified Qualified Code(s): F31.9 - Bipolar disorder, unspecified (3) Cannabis dependence Current Visit: Yes Status: Chronic (4) Cocaine dependence Current Visit: Yes Status: Chronic Qualifiers: Substance use status: uncomplicated Qualified Code(s): F14.20 - Cocaine dependence, uncomplicated (5) Insomnia Current Visit: Yes Status: Chronic Qualifiers: Insomnia type: unspecified Qualified Code(s): G47.00 - Insomnia, unspecified (6) Nicotine dependence Current Visit: Yes Status: Chronic Qualifiers: Nicotine product type: cigarettes Substance use status: uncomplicated Qualified Code(s): F17.210 - Nicotine dependence, cigarettes, uncomplicated (7) Substance induced mood disorder Current Visit: Yes Status: Chronic (8) Drug-induced mood disorder Current Visit: No Status: Acute (9) Substance-induced sleep disorder Current Visit: No Status: Acute (10) Anxiety Current Visit: No Status: Chronic (11) CAD (coronary artery disease) Current Visit: No Status: Chronic Qualifiers: Coronary Disease-Associated Artery/Lesion type: unspecified vessel or lesion type [place] vs. transplanted heart: unspecified whether [place] or transplanted heart Associated angina: angina presence unspecified Qualified Code(s): I25.10 - Atherosclerotic heart disease of [place] coronary artery without angina pectoris (12) COPD (chronic obstructive pulmonary disease) Current Visit: No Status: Chronic Qualifiers: COPD type: unspecified COPD Qualified Code(s): J44.9 - Chronic obstructive pulmonary disease, unspecified (13) Hyperlipidemia Current Visit: No Status: Chronic Qualifiers: Hyperlipidemia type: unspecified Qualified Code(s): E78.5 - Hyperlipidemia , unspecified (14) Hypertension Current Visit: No Status: Chronic Qualifiers: Hypertension type: essential hypertension Qualified Code(s): I10 - Essential (primary) hypertension (15) Hypothyroidism Current Visit: No Status: Chronic Qualifiers: Hypothyroidism type: unspecified Qualified Code(s): E03.9 - Hypothyroidism , unspecified (16) MDD (major depressive disorder) Current Visit: No Status: Chronic Qualifiers: Major depression recurrence: unspecified whether recurrent Active/ Remission status: remission status unspecified Qualified Code(s): F32.9 - Major depressive disorder, single episode, unspecified (17) S/P angioplasty with stent Current Visit: No Status: Chronic - AMA Did Patient Leave Against Medical Advice: No
== END 2019-06-18 08:25 | disposition home or self-care (01) | DRG 774 ==
LOC: YASAS 11:57 → Y6N 17:02
PROVIDERS: ADMIT Allergy & Immunology; ATTEND Allergy & Immunology
PROC: HZ2ZZZZ Detoxification Services for Substance Abuse Treatment (ICD-10-PCS; principal; 2019-06-13)
DX: F10.230 Alcohol dependence with withdrawal, uncomplicated (principal); F14.20 Cocaine dependence, uncomplicated; F12.20 Cannabis dependence, uncomplicated; F17.210 Nicotine dependence, cigarettes, uncomplicated; F31.9 Bipolar disorder, unspecified; F41.9 Anxiety disorder, unspecified; F43.10 Post-traumatic stress disorder, unspecified; I10 Essential (primary) hypertension; I25.10 Atherosclerotic heart disease of native coronary artery without angina pectoris; I25.2 Old myocardial infarction; E78.5 Hyperlipidemia, unspecified; E03.9 Hypothyroidism, unspecified; G47.00 Insomnia, unspecified; D64.9 Anemia, unspecified; K21.9 Gastro-esophageal reflux disease without esophagitis; R79.89 Other specified abnormal findings of blood chemistry; J44.9 Chronic obstructive pulmonary disease, unspecified; E66.9 Obesity, unspecified; Z68.32 Body mass index [BMI] 32.0-32.9, adult; Z95.5 Presence of coronary angioplasty implant and graft; Z86.19 Personal history of other infectious and parasitic diseases
CPT/HCPCS: 36415; 80053; 82607; 82728; 82746; 83540; 83550; 85027; 86593